=== PATIENT | female | born 1975 | race Caucasian/White ===

== ENCOUNTER 2018-02-09 08:45 | Outpatient (CLI) | payer BC, SELFPAY ==
[2018-02-09 09:46] LABS: Hemoglobin A1C 5.3 % (4.5-6.2)
[2018-02-09 10:04] LABS: Anion Gap 10.3 mmol/L (3-11); BUN 7 mg/dL (7-18); CO2 27.7 mmol/L (21.0-32.0); CREATININE 0.66 mg/dL (0.55-1.02); Calcium 8.7 mg/dL (8.5-10.1); Chloride 102 mmol/L (98-107); Glucose 85 mg/dL (70-100); Potassium 4.4 mmol/L (3.5-5.1); Sodium 140 mmol/L (136-145)
[2018-02-09 10:36] LABS: Vitamin D 25 Total 55.7 ng/ml (30-100)
== END 2018-02-09 09:05 ==
PROVIDERS: PCP Family Medicine; Visit Provider Family Medicine
DX: R73.9 Hyperglycemia, unspecified (principal); E55.9 Vitamin D deficiency, unspecified
CPT/HCPCS: 36415; 80048; 82306; 83036

== ENCOUNTER 2018-11-27 09:47 | Outpatient (CLI) | payer BC, SELFPAY ==
[2018-11-27 13:09] LABS: Abs Immature Grans 0.02 k/cumm (0.0-0.09); Absolute Basophil Count 0.03 k/cumm (0.0-0.2); Absolute Eosinophil Count 0.08 k/cumm (0.0-0.7); Absolute Lymphocyte Count 2.17 k/cumm (1.2-3.4); Basophils % 0.3; Eosinophils % 0.7; HCT 45.3 % (36.0-46.0); HGB 15.3 g/dL (12.0-15.5); Immature Grans % 0.2; Lymphocytes % 19.5; Mean Corp. HGB Concentration 33.8 g/dL (32.0-36.0); Mean Corpuscular Hemoglobin 30.9 pg (27.0-33.0); Mean Corpuscular Volume 91.5 fL (80-95); Mean Platelet Volume 11.5 fL (8.0-11.0); Monocytes % 8.1; Neutrophils % 71.2; Platelet Count 295 x1000/uL (130-400); RBC 4.95 m/cumm (4.00-5.20); RBC Distribution Width 13.6 % (11.7-14.6); White Blood Cell Count 11.15 k/cumm (4.4-10.8)
[2018-11-27 13:11] LABS: Absolute Neutrophil Count 7.94 k/cumm (1.2-6.7)
[2018-11-27 13:32] LABS: ALT 20 U/L (12-78); AST 14 U/L (15-37); Albumin 3.7 g/dL (3.4-5.0); Alkaline Phosphatase 125 U/L (46-116); Anion Gap 10.7 mmol/L (3-11); BUN 8 mg/dL (7-18); Bilirubin, Total 0.4 mg/dL (0.2-1.0); CO2 25.3 mmol/L (21.0-32.0); CREATININE 0.49 mg/dL (0.55-1.02); Calcium 9.1 mg/dL (8.5-10.1); Chloride 104 mmol/L (98-107); Glucose 72 mg/dL (70-100); Potassium 4.5 mmol/L (3.5-5.1); Sodium 140 mmol/L (136-145); TSH 0.82 uIU/mL (0.36-3.74); Total Protein 7.1 g/dL (6.4-8.2)
[2018-11-27 13:38] LABS: Vitamin D 25 Total 33.1 ng/ml (30-100)
[2018-11-27 13:51] LABS: ESR 11 mm/hr (0-20)
== END 2018-11-27 10:07 ==
PROVIDERS: PCP Family Medicine; Visit Provider Internal Medicine
DX: E55.9 Vitamin D deficiency, unspecified (principal); D72.829 Elevated white blood cell count, unspecified; R53.83 Other fatigue; M79.10 Myalgia, unspecified site
CPT/HCPCS: 36415; 80053; 82306; 85652; 84443; 85025

== ENCOUNTER 2019-06-12 13:30 | Emergency (ER) | payer BC, SELFPAY ==
[2019-06-12] MEDS: Normal Saline 1,000 ML 1000 ML IV (13:30)
[2019-06-12 13:38] VITALS: BP 129/68; PULSE 71; RESP 18; TEMP 36.6; O2SAT 99
[2019-06-12] MEDS: Ondansetron 4 MG/2 ML VIAL IVP (14:20)
--- NOTE | 2019-06-12 14:23 | W.ED.GENAD ---
Discharge Plan Discharge Details Chief Complaint: Abd Prob Primary Care Provider: Manuel Sanchez ED Provider: Gareth Ritter Home Meds and New Rx's Prescriptions: No Action fluconazole [Diflucan] 150 mg tablet 150 mg PO QWEEK Qty: 2 RF: 0 albuterol sulfate [ProAir HFA] 8.5 GM HFA aerosol inhaler 1 puff Inhalation Q4H PRN Qty: 3 RF: 12 Flovent HFA 12 GM HFA aerosol inhaler 2 puff Inhalation BID Qty: 3 RF: 12 omeprazole 40 MG capsule,delayed release(DR/EC) 40 mg PO DAILY Qty: 90 RF: 3 ibuprofen 200 MG tablet 2 tab PO PRN RF: 0 Medical Decision Making 43-year-old female with history of diverticulitis uncomplicated, gastritis, tubal ligation, cholecystectomy, presents with 2-day history of abdominal pain, nausea, vomiting and chronic diarrhea. She reports this feels most similarly to her diverticulitis. Patient appears well, nontoxic and has a nonsurgical ligia examination. Will give IV fluid, Zofran and routine laboratory out and reassess. Patient did not have any resolution of her symptoms with Zofran, 10 IV Reglan given. Patient's WBCs elevated over 20, will obtain abdomen and pelvis CT with contrast for further evaluation CT pending. Upon reevaluation patient is resting comfortably, no vomiting, has had a good reaction to the Reglan. 1618: I discussed the case with Dr. Ritter for signout. CT pending. Discussed signout with patient and family. Patient has had no vomiting with the IV Reglan and has no additional questions or concerns. Medical Records Medical records reviewed: Yes I reviewed the patient's medical records. HPI General Mode of arrival: ambulatory. Date/Time Provider Initiated Documentation: 06/12/19 13:36. Limitations to Documentation: no limitations. Information obtained by: patient and family. History of Present Illness 43 year old F presents to the emergency department with the chief complaint of Abdominal pain, HPI Narrative: 43-year-old female presents to the ER today reporting 2-3-day history of diffuse abdominal discomfort worse in the left lower quadrant associated with nausea and vomiting. Denies fever, constipation, dysuria, hematuria. Patient reports chronic diarrhea, there is no change in the consistency. Patient reports a longstanding history of abdominal pain, and reports that specifically this feels the most similar to her episodes of diverticulitis. She denies bad food exposure, sick contacts or recent travel. Denies any back pain. Related Data Home Medications Medication Instructions Recorded Confirmed Flovent HFA 2 puff INHALATION BID #3 canister 09/07/16 06/12/19 albuterol sulfate [ProAir HFA] 1 puff INHALATION Q4H PRN #3 09/07/16 06/12/19 inhaler omeprazole 40 mg PO DAILY #90 tab-cap 09/29/16 06/12/19 ibuprofen 2 tab PO PRN 04/04/17 06/12/19 fluconazole 150 mg tablet 150 mg PO QWEEK #2 tab 11/27/18 06/12/19 Previous Rx's Medication Instructions Recorded fluconazole 150 mg tablet 150 mg PO QWEEK #2 tab 11/27/18 Allergies Allergy/AdvReac Type Severity Reaction Status Date / Time hydrocodone AdvReac Severe Restlessnes Unverified 06/12/19 13:40 s nicotine AdvReac Severe Caused Unverified 06/12/19 13:40 pain down extremity bupropion [From Wellbutrin] AdvReac jitters Unverified 06/12/19 13:40 General Stated Complaint: Abd Prob ROSI: 3 Review of Systems Constitutional Constitutional: Denies fever(s) ENT Ears, Nose, Mouth, and Throat: Denies dizziness and Reports dry mouth Cardiovascular Cardiovascular: Denies chest pain and Denies dyspnea Respiratory Respiratory: Denies dyspnea Gastrointestinal Gastrointestinal: Reports abdominal pain, Denies constipation, Reports diarrhea, Reports nausea and Reports vomiting Genitourinary Genitourinary: Denies hematuria and Denies dysuria Musculoskeletal Musculoskeletal: Denies back pain Neurologic Neurologic: Denies dizziness [facility] Medical History Gastritis Surgical History Cholecystectomy 2008-Dr. Garcia Colonoscopy - IV Sedation 2009-Dr. Sloan Colonoscopy - MAC (09/01/16) EGD - IV Sedation 2009-Dr. Sloan EGD - MAC (09/01/16) Ligation of fallopian tube Family History Mother Essential hypertension Heart disease Hyperlipidemia Myocardial infarction AFTER SURGERY AND BLEEDING W/ BLOOD CLOT TO THE HEART. Father Alcohol abuse Personal history of malignant neoplasm THROAT/LIVER/LUNG Sister No problems noted. Brother Alcohol abuse Personal history of malignant neoplasm LIVER Grandfather No problems noted. Grandfather Personal history of malignant neoplasm Heart disease Grandmother Essential hypertension Stroke Grandmother Personal history of malignant neoplasm Social History Smoking/Tobacco Use Status: Current every day Tobacco Type: cigarettes Smoking packs per day: 0.5 Smoking cigarettes per day: 10.0 Alcohol Intake: never Drug use: Never Substance use type: does not use Household members: other Details: 4 Duration: 15-30 minutes/day Frequency: 3-4 times per week Do you feel safe in your relationship?: Yes Exam Const General: cooperative, healthy appearing and no acute distress Orientation: alert and awake HENMT Head: normal to inspection, normocephalic and atraumatic Mouth: mucous membranes dry Eyes Conjunctivae: conjunctivae normal Neck Neck: normal visual inspection, full ROM, no meningeal signs, trachea midline and supple Resp Effort & Inspection: normal respiratory effort Auscultation: clear to auscultation bilaterally Cardio Rate: regular rate Rhythm: regular rhythm GI Inspection: normal to inspection and non-distended Palpation: soft and tender (Diffuse mild discomfort worse in the left lower quadrant. No guarding) not at McBurney's point, Kahn's sign negative and with no rebound tenderness Auscultation: normal bowel sounds Back/Spine/Pelvis Thoracic/Lumbar Spine: No lumbar spinal tenderness Skin General skin exam: no rashes or lesions noted Neuro General: alert and awake Cognition: normal cognition Speech: speech normal Motor: muscle tone normal throughout Extrem General: normal to inspection and full ROM Psych Appearance: grossly normal Course Vital Signs Vital signs: Vital Signs Temperature 36.6 C 06/12/19 13:38 Pulse 71 06/12/19 13:38 Respiratory Rate 18 06/12/19 13:38 Blood Pressure 129/68 06/12/19 13:38 Pulse Oximetry 99 06/12/19 13:38 Temperature 36.6 C 06/12/19 13:38 Temperature Source Skin 06/12/19 13:38 Pulse 71 06/12/19 13:38 Respiratory Rate 18 06/12/19 13:38 Blood Pressure 129/68 06/12/19 13:38 Pulse Oximetry 99 06/12/19 13:38 Oxygen Delivery Method Room Air 06/12/19 13:38 Oxygen Flow Rate 0 06/12/19 13:38 Pain Level 7 06/12/19 13:38 Sign Out Sign Out Data: Sign Out Comment: Pending CT, reevaluation and final disposition. Patient has responded nicely to Reglan. She is stable. Abdominal examination is nonsurgical at the moment Last updated by John Gunter PA at 06/12/19 16:15
[2019-06-12 14:35] LABS: Abs Immature Grans 0.05 k/cumm (0.0-0.09); Absolute Lymphocyte Count 0.58 k/cumm (1.2-3.4); Absolute Monocyte Count 0.35 k/cumm (0.11-0.7); Absolute Neutrophil Count 19.65 k/cumm (1.2-6.7); HGB 15.3 g/dL (12.0-15.5); Immature Grans % 0.2 %; Lymphocytes % 2.8; Mean Corpuscular Hemoglobin 30.5 pg (27.0-33.0); Mean Corpuscular Volume 89.6 fL (80-95); Mean Platelet Volume 11.2 fL (8.0-11.0); Monocytes % 1.7; Neutrophils % 95.3; Platelet Count 362 x1000/uL (130-400); RBC 5.02 m/cumm (4.00-5.20); White Blood Cell Count 20.62 k/cumm (4.4-10.8)
[2019-06-12 14:56] LABS: ALT 14 U/L (14-59); AST 12 U/L (15-37); Albumin 3.7 g/dL (3.4-5.0); Alkaline Phosphatase 132 U/L (46-116); Anion Gap 15.5 mmol/L (3-11); BUN 9 mg/dL (7-18); Bilirubin, Total 0.7 mg/dL (0.2-1.0); CO2 21.5 mmol/L (21.0-32.0); CREATININE 0.73 mg/dL (0.55-1.02); Calcium 8.8 mg/dL (8.5-10.1); Chloride 100 mmol/L (98-107); Glucose 176 mg/dL (74-106); Lipase 53 U/L (73-393); Potassium 3.9 mmol/L (3.5-5.1); Sodium 137 mmol/L (136-145); Total Protein 7.8 g/dL (6.4-8.2)
[2019-06-12 15:01] LABS: Bilirubin Negative (Negative); Blood Trace-intact (Negative); Clarity Clear (Clear); Glucose 250 mg/dL (Negative); Ketones >=160 mg/dL (Negative); Leukocyte Esterase Negative (Negative); Nitrite Negative (Negative); Specific Gravity >= 1.030 (1.005-1.025); Urobilinogen 0.2 EU/dL (Up TO 0.2)
[2019-06-12] MEDS: Metoclopramide 10 MG/2 ML VIAL IVP (15:08)
[2019-06-12 15:15] LABS: Epithelial Cells Few HPF (Negative); RBC 0-2 HPF (0-2); WBC 0-2 HPF (0-5)
[2019-06-12 15:16] LABS: Bacteria Few HPF (Negative); C & S Indicated? No; Casts Negative LPF (Negative); Crystals Negative HPF (Negative); Mucus Trace (Negative)
--- NOTE | 2019-06-12 16:47 | DI.CT_ITS ---
EXAM: CT ABDOMEN PELVIS W CLINICAL HISTORY: 20 wbc, llq pain TECHNIQUE: Imaging Protocol: Axial computed tomography images with coronal and sagittal reformatted images were created and reviewed CONTRAST MATERIAL: Intravenous: Omnipaque 350 Contrast volume:100 mL Oral: No COMPARISON: ABD PELVIS WITH CONTRAST from 09/04/2016 FINDINGS: ABDOMEN: Lung Bases: Normal where visualized. Liver: Normal density. No measurable mass. Portal, Superior Mesenteric, and Splenic Veins: Unremarkable. Gallbladder and Biliary Tract: Status post cholecystectomy. No biliary ductal dilatation. Pancreas: Normal density, no abnormal calcifications or inflammatory process. Spleen: Normal. Adrenals: No masses seen. Kidneys: Normal size, contour and axis. No radiodense stones or obstructive uropathy. No masses seen. Abdominal Aorta: Abdominal portion non-dilated. Atherosclerosis. Bowel: There is colonic diverticulosis. There is focal bowel wall thickening seen in the descending colon with surrounding inflammatory change. The finding is consistent with acute diverticulitis. No abscess or free air. No evidence of acute appendicitis. Small hiatal hernia. Peritoneal Cavity: Small amount of free fluid in the pelvis which is likely physiologic or reactive. Lymph Nodes: Within normal limits. Bones: Unremarkable. Soft Tissues: Unremarkable. PELVIS: Bladder: Symmetric distention, no gross wall thickening. Reproductive Organs: Unremarkable as visualized. Lymph Nodes: Within normal limits. Bones: Within normal limits. IMPRESSION: Acute diverticulitis involving the descending colon. No abscess or free air. DATA REPOSITORY: All CT scans at this facility are submitted to the National Radiology Data Registry (NRDR) Dose Index Registry (DIR) with the [employer] (ACR). RADIATION OPTIMIZATION: All CT scans at this facility use at least one of these dose optimization te chniques: automated exposure control; mA and/or kV adjustment per patient size (includes targeted exa ms where dose is matched to clinical indication); or iterative reconstruction.
--- NOTE | 2019-06-12 17:13 | DI.VRAD_ITS ---
PROCEDURE INFORMATION: Exam: CT Abdomen And Pelvis With Contrast Exam date and time: 06/12/2019 4:53 PM Age: 43 years old Clinical indication: Other: 20 wbc, llq pain; Prior surgery; Surgery date: 6+ months; Surgery type: Bladder , gb TECHNIQUE: Imaging protocol: Computed tomography of the abdomen and pelvis with intravenous contrast. Radiation optimization: All CT scans at this facility use at least one of these dose optimization techniques: automated exposure control; mA and/or kV adjustment per patient size (includes targeted exams where dose is matched to clinical indication); or iterative reconstruction. Contrast material: OMNIPAQUE 350; Contrast volume: 100 ml; Contrast route: IV; COMPARISON: CT ABD PELVIS WITH CONTRAST 09/04/2016 2:51 PM FINDINGS: Lungs: The visualized portions of the lung bases demonstrate no acute disease. Mediastinum: A small hiatal hernia is present. Liver: Normal. No mass. Gallbladder and bile ducts: Patient status post cholecystectomy. No biliary ductal dilation. Pancreas: Normal. No ductal dilation. Spleen: Normal. No splenomegaly. Adrenals: Normal. No mass. Kidneys and ureters: Normal. No hydronephrosis. Stomach and bowel: Focal segment of descending colon demonstrates wall thickening, pericolonic stranding, and an inflamed diverticulum. This is compatible with acute diverticulitis. Diffuse colonic diverticulosis is present. No other segmental bowel wall thickening is appreciated. There is no bowel obstruction. Appendix: No evidence of appendicitis. Intraperitoneal space: Trace free fluid in the pelvis may be physiologic or reactive. No pneumoperitoneum. No fluid collections. Vasculature: The vasculature demonstrates diffuse mild atherosclerotic calcification. Lymph nodes: Unremarkable. No enlarged lymph nodes. Bladder: Unremarkable as visualized. Reproductive: Unremarkable as visualized. Bones/joints: No acute abnormality or aggressive osseous lesion. Soft tissues: Unremarkable. IMPRESSION: Acute uncomplicated diverticulitis involving a focal segment of descending colon. Dictated and Authenticated by: Ant Rojas MD. Ordering:ÁNGELA Lopez MD
--- NOTE | 2019-06-12 17:14 | ED.GENADUL_ITS ---
Discharge Plan Disposition Patient Disposition: HOME Condition: Improving Discharge Details Chief Complaint: Abd Prob Clinical Impression: Diverticulitis Primary Care Provider: Manuel Sanchez ED Provider: Gareth Ritter Home Meds and New Rx's Prescriptions: New ciprofloxacin HCl [Cipro] 500 mg tablet 500 mg PO BID 10 Days Qty: 20 RF: 0 metronidazole [Flagyl] 500 mg tablet 500 mg PO Q8H 10 Days Qty: 30 RF: 0 metoclopramide HCl [Reglan] 10 mg tablet 10 mg PO Q6H PRN (Reason: nausea and vomiting) Qty: 5 RF: 0 Continued fluconazole [Diflucan] 150 mg tablet 150 mg PO QWEEK Qty: 2 RF: 0 albuterol sulfate [ProAir HFA] 8.5 GM HFA aerosol inhaler 1 puff Inhalation Q4H PRN Qty: 3 RF: 12 Flovent HFA 12 GM HFA aerosol inhaler 2 puff Inhalation BID Qty: 3 RF: 12 omeprazole 40 MG capsule,delayed release(DR/EC) 40 mg PO DAILY Qty: 90 RF: 3 ibuprofen 200 MG tablet 2 tab PO PRN RF: 0 Discharge Instructions Instructions: Diverticulitis (ED), Diverticulitis Diet (ED) Additional Instructions: Followup with regular doctor for recheck in 10-14 days time. Please take an over the counter probiotic or live culture yogurt while on the antibiotics. Return for fever, increasing pain or any other concerns. May use Tylenol as needed for pain. Medical Decision Making Patient seen initially by Mr Gunter, signed out to pending review of CT abdomen. Please see his note regarding details of patient's initial presentation, exam, plan of care. CT images: Acute uncomplicated diverticulitis involving a focal segment of descending colon. The patient is improving and tolerating liquids/ice chips. She requested GI cocktail as she stated good results in the past for similar symptoms. No antibiotic intolerance in the past. Will begin Cipro/Flagyl. Antiemetics offered for home. Discussed home care as well as followup. HPI General Mode of arrival: ambulatory . Date/Time Provider Initiated Documentation: 06/12/19 13:36 . Limitations to Documentation: no limitations . Information obtained by: patient and family . Related Data Home Medications Medication Instructions Recorded Confirmed Flovent HFA 2 puff INHALATION BID #3 canister 09/07/16 06/12/19 albuterol sulfate [ProAir HFA] 1 puff INHALATION Q4H PRN #3 09/07/16 06/12/19 inhaler omeprazole 40 mg PO DAILY #90 tab-cap 09/29/16 06/12/19 ibuprofen 2 tab PO PRN 04/04/17 06/12/19 fluconazole 150 mg tablet 150 mg PO QWEEK #2 tab 11/27/18 06/12/19 ciprofloxacin HCl [Cipro] 500 mg PO BID 10 Days #20 tab 06/12/19 metoclopramide HCl [Reglan] 10 mg PO Q6H PRN #5 tab 06/12/19 metronidazole [Flagyl] 500 mg PO Q8H 10 Days #30 tab 06/12/19 Previous Rx's Medication Instructions Recorded fluconazole 150 mg tablet 150 mg PO QWEEK #2 tab 11/27/18 ciprofloxacin HCl [Cipro] 500 mg PO BID 10 Days #20 tab 06/12/19 metoclopramide HCl [Reglan] 10 mg PO Q6H PRN #5 tab 06/12/19 metronidazole [Flagyl] 500 mg PO Q8H 10 Days #30 tab 06/12/19 Allergies Allergy/AdvReac Type Severity Reaction Status Date / Time hydrocodone AdvReac Severe Restlessnes Unverified 06/12/19 13:40 s nicotine AdvReac Severe Caused Unverified 06/12/19 13:40 pain down extremity bupropion [From Wellbutrin] AdvReac jitters Unverified 06/12/19 13:40 General Stated Complaint: Abd Prob ROSI: 3 PFSH Medical History Gastritis Surgical History Cholecystectomy 2008-Dr. Garcia Colonoscopy - IV Sedation 2009-Dr. Sloan Colonoscopy - MAC (09/01/16) EGD - IV Sedation 2009-Dr. Sloan EGD - MAC (09/01/16) Ligation of fallopian tube Family History Mother Essential hypertension Heart disease Hyperlipidemia Myocardial infarction AFTER SURGERY AND BLEEDING W/ BLOOD CLOT TO THE HEART. Father Alcohol abuse Personal history of malignant neoplasm THROAT/LIVER/LUNG Sister No problems noted. Brother Alcohol abuse Personal history of malignant neoplasm LIVER Grandfather No problems noted. Grandfather Personal history of malignant neoplasm Heart disease Grandmother Essential hypertension Stroke Grandmother Personal history of malignant neoplasm Social History Smoking/Tobacco Use Status: Current every day Tobacco Type: cigarettes Smoking packs per day: 0.5 Smoking cigarettes per day: 10.0 Alcohol Intake: never Drug use: Never Substance use type: does not use Household members: other Details: 4 Duration: 15-30 minutes/day Frequency: 3-4 times per week Do you feel safe in your relationship?: Yes Course Vital Signs Vital signs: Vital Signs Temperature 36.6 C 06/12/19 13:38 Pulse 71 06/12/19 13:38 Respiratory Rate 18 06/12/19 13:38 Blood Pressure 129/68 06/12/19 13:38 Pulse Oximetry 99 06/12/19 13:38 Temperature 36.6 C 06/12/19 13:38 Temperature Source Skin 06/12/19 13:38 Pulse 71 06/12/19 13:38 Respiratory Rate 18 06/12/19 13:38 Respiratory Effort Non-Labored 06/12/19 14:47 Blood Pressure 129/68 06/12/19 13:38 Pulse Oximetry 99 06/12/19 13:38 Oxygen Delivery Method Room Air 06/12/19 13:38 Oxygen Flow Rate 0 06/12/19 13:38 Pain Level 7 06/12/19 13:38 Lab/Test Results Lab/Test Results: Laboratory Tests Range/Units 06/12/19 06/12/19 06/12/19 13:50 13:50 14:46 WBC (4.4-10.8) k/cumm 20.62 H RBC (4.00-5.20) m/cumm 5.02 Hgb (12.0-15.5) g/dL 15.3 Hct (36.0-46.0) % 45.0 MCV (80-95) fL 89.6 MCH (27.0-33.0) pg 30.5 MCHC (32.0-36.0) g/dL 34.0 RDW (11.7-14.6) % 13.0 Plt Count (130-400) x1000/uL 362 MPV (8.0-11.0) fL 11.2 H Immature Gran % % 0.2 Neutrophils % 95.3 Lymphocytes % 2.8 Monocytes % 1.7 Eosinophils % 0.0 Basophils % 0.0 Absolute Neutrophils (1.2-6.7) k/cumm 19.65 H Absolute Lymphocytes (1.2-3.4) k/cumm 0.58 L Absolute Monocytes (0.11-0.7) k/cumm 0.35 Absolute Eosinophils (0.0-0.7) k/cumm 0.00 Absolute Basophils (0.0-0.2) k/cumm 0.00 Sodium (136-145) mmol/L 137 Potassium (3.5-5.1) mmol/L 3.9 Chloride (98-107) mmol/L 100 Carbon Dioxide (21.0-32.0) mmol/L 21.5 Anion Gap (3-11) mmol/L 15.5 H BUN (7-18) mg/dL 9 Creatinine (0.55-1.02) mg/dL 0.73 Estimated GFR/1.73 m2 (mL/min/1.73m2) >= 60.00 Glucose (74-106) mg/dL 176 H Calcium (8.5-10.1) mg/dL 8.8 Total Bilirubin (0.2-1.0) mg/dL 0.7 AST (15-37) U/L 12 L ALT (14-59) U/L 14 Alkaline Phosphatase (46-116) U/L 132 H Total Protein (6.4-8.2) g/dL 7.8 Albumin (3.4-5.0) g/dL 3.7 Lipase (73-393) U/L 53 Urine Color (Yellow) Yellow Urine Clarity (Clear) Clear Urine pH (5-8) 6.0 Ur Specific [place] (1.005-1.025) >= 1.030 H Urine Protein (Negative) mg/dL 30 H Urine Ketones (Negative) mg/dL >=160 H Urine Blood (Negative) Trace-intact H Urine Nitrite (Negative) Negative Urine Bilirubin (Negative) Negative Urine Urobilinogen (Up TO 0.2) EU/dL 0.2 Ur Leukocyte Esterase (Negative) Negative Urine RBC (0-2) HPF 0-2 Urine WBC (0-5) HPF 0-2 Ur Epithelial Cells (Negative) HPF Few Urine Crystals (Negative) HPF Negative Urine Bacteria (Negative) HPF Few Urine Casts (Negative) LPF Negative Urine Mucus (Negative) Trace Ur Culture Indicated? No Urine Glucose (Negative) mg/dL 250 H Sign Out Sign Out Data: Sign Out Comment: Pending CT, reevaluation and final disposition. Patient has responded nicely to Reglan. She is stable. Abdominal examination is nonsurgical at the moment Last updated by John Gunter PA at 06/12/19 16:15
[2019-06-12 17:36] VITALS: BP 138/88; PULSE 70; TEMP 37; O2SAT 97
[2019-06-12] MEDS: Ondansetron O.D.T. 4 MG TABEF PO (17:40)
[2019-06-12 18:00] VITALS: BP 138/88; PULSE 70; RESP 18; TEMP 37; O2SAT 97
== END 2019-06-12 17:55 | disposition home or self-care (01) ==
PROVIDERS: Physician Assistant; Emergency Provider Emergency Medicine; PCP Family Medicine
DX: R11.2 Nausea with vomiting, unspecified (principal); K57.32 Diverticulitis of large intestine without perforation or abscess without bleeding
CPT/HCPCS: 36415; 80053; 83690; 96361; 96374; 96375; 99285; 74177; 81003; 81015; 85025; 99284; J2405; J2765

== ENCOUNTER 2019-06-14 22:15 | Inpatient (IN) | payer BC, SELFPAY ==
[2019-06-14 22:19] VITALS: BP 145/85; PULSE 57; RESP 18; TEMP 36.5; O2SAT 99
--- NOTE | 2019-06-14 22:33 | ED.GENADUL_ITS ---
Discharge Plan Disposition Patient Disposition: [facility] INPATIENT Condition: Stable Discharge Details Chief Complaint: Abd Prob Clinical Impression: Diverticulitis Primary Care Provider: Manuel Sanchez ED Provider: Jean Lopez Home Meds and New Rx's Prescriptions: No Action albuterol sulfate [ProAir HFA] 8.5 GM HFA aerosol inhaler 1 puff Inhalation Q4H PRN Qty: 3 RF: 12 Flovent HFA 12 GM HFA aerosol inhaler 2 puff Inhalation BID Qty: 3 RF: 12 omeprazole 40 MG capsule,delayed release(DR/EC) 40 mg PO DAILY Qty: 90 RF: 3 ibuprofen 200 MG tablet 2 tab PO PRN RF: 0 metoclopramide HCl [Reglan] 10 mg tablet 10 mg PO Q6H PRN (Reason: nausea and vomiting) Qty: 12 RF: 0 ciprofloxacin HCl [Cipro] 500 mg tablet 500 mg PO BID 10 Days Qty: 20 RF: 0 metronidazole [Flagyl] 500 mg tablet 500 mg PO Q8H 10 Days Qty: 30 RF: 0 Medical Decision Making 43 yo female who was diagnosed on CT with uncomplciated diverticulitis on y comes in with increasing pain in llq since then, chills and n/v along with hematuria. Denies any chest pain/pressure, recent travel. On exam does have guarding in left lower quadrants. Will obtain lab work and another CT to eval for possible ruptured diverticula vs abscess labs unremarkable, does have hematuria with no significant indication of infection was not grossly bloody on visual inspection. Will likely need urology consult. Does have likely microperforation of diverticula. Spoke with Dr. French who accepts for admission, abx ordered. Differential Diagnosis Differential Diagnosis: diverticulitis, abscess, kdiney stone Imaging Data Radiologic Study: Attestation: I personally reviewed and interpreted this imaging study as follows: Imaging: CT Scan Radiologist's impression: IMPRESSION: Acute descending colon diverticulitis with concern for contained micro perforation. Lab Data Lab results reviewed: Yes I reviewed the patient's lab results. HPI General Mode of arrival: ambulatory . Date/Time Provider Initiated Documentation: 06/14/19 22:18 . Limitations to Documentation: no limitations . Information obtained by: patient . History of Present Illness 43 year old F presents to the emergency department with the chief complaint of abdominal pain, described as moderate and severe, Patient started experiencing this day(s) (5) and it has been constant. No relieving factors improve symptom(s), No exacerbating factors reported . Patient notes nausea/vomiting. Patient did receive the following treatments prior to arrival, none Related Data Home Medications Medication Instructions Recorded Confirmed Flovent HFA 2 puff INHALATION BID #3 canister 09/07/16 06/14/19 albuterol sulfate [ProAir HFA] 1 puff INHALATION Q4H PRN #3 09/07/16 06/14/19 inhaler omeprazole 40 mg PO DAILY #90 tab-cap 09/29/16 06/14/19 ibuprofen 2 tab PO PRN 04/04/17 06/14/19 ciprofloxacin HCl [Cipro] 500 mg PO BID 10 Days #20 tab 06/12/19 06/14/19 metronidazole [Flagyl] 500 mg PO Q8H 10 Days #30 tab 06/12/19 06/14/19 metoclopramide HCl 10 mg tablet 10 mg PO Q6H PRN #12 tab 06/13/19 06/14/19 Previous Rx's Medication Instructions Recorded ciprofloxacin HCl [Cipro] 500 mg PO BID 10 Days #20 tab 06/12/19 metronidazole [Flagyl] 500 mg PO Q8H 10 Days #30 tab 06/12/19 metoclopramide HCl 10 mg tablet 10 mg PO Q6H PRN #12 tab 06/13/19 Allergies Allergy/AdvReac Type Severity Reaction Status Date / Time hydrocodone AdvReac Severe Restlessnes Unverified 06/14/19 22:43 s nicotine AdvReac Severe Caused Unverified 06/14/19 22:43 pain down extremity bupropion [From Wellbutrin] AdvReac jitters Unverified 06/14/19 22:43 General Stated Complaint: Abd Prob ROSI: 3 Review of Systems All systems reviewed & are unremarkable except as noted in HPI and below Constitutional Constitutional: Denies fever(s) and Denies weakness Cardiovascular Cardiovascular: Denies chest pain and Denies dyspnea Respiratory Respiratory: Denies cough and Denies dyspnea Musculoskeletal Musculoskeletal: Denies joint swelling Neurologic Neurologic: Denies weakness Endocrine Endocrine: Denies heat intolerance [facility] Medical History (Updated 06/14/19 @ 23:38 by Jean Lopez MD) Diverticulitis (Chronic) Gastritis Social History Smoking/Tobacco Use Status: Current every day Tobacco Type: cigarettes Smoking packs per day: 0.5 Smoking cigarettes per day: 10.0 Alcohol Intake: never Drug use: Never Substance use type: does not use Household members: other Details: 4 Duration: 15-30 minutes/day Frequency: 3-4 times per week Do you feel safe in your relationship?: Yes Exam Const General: no acute distress Orientation: alert HENMT Head: normal to inspection Ears: external ears normal General nose exam: external nose normal Mouth: moist mucous membranes Eyes General: appearance normal, both eyes and all related structures Neck Neck: normal visual inspection Resp Effort & Inspection: normal respiratory effort and able to speak in complete sentences Cardio Rate: regular rate GI Palpation: soft Skin General skin exam: no rashes or lesions noted Neuro General: alert and oriented x3 Extrem General: normal to inspection Psych Mental Status: mental status grossly normal Course Vital Signs Vital signs: Vital Signs Temperature 36.5 C 06/14/19 22:19 Pulse 57 L 06/14/19 22:19 Respiratory Rate 18 06/14/19 22:19 Blood Pressure 145/85 H 06/14/19 22:19 Pulse Oximetry 99 06/14/19 22:19 Temperature 36.5 C 06/14/19 22:19 Temperature Source Skin 06/14/19 22:19 Pulse 57 L 06/14/19 22:19 Respiratory Rate 18 06/14/19 22:19 Blood Pressure 145/85 H 06/14/19 22:19 Pulse Oximetry 99 06/14/19 22:19 Oxygen Delivery Method Room Air 06/14/19 22:19 Oxygen Flow Rate 0 06/14/19 22:19 Pain Level 5 06/14/19 22:19
[2019-06-14 22:39] LABS: Lactate 1.4 mmol/L (0.6-1.4)
[2019-06-14 22:40] LABS: Abs Immature Grans 0.04 k/cumm (0.0-0.09); Absolute Basophil Count 0.01 k/cumm (0.0-0.2); Absolute Lymphocyte Count 1.24 k/cumm (1.2-3.4); Absolute Neutrophil Count 10.14 k/cumm (1.2-6.7); Basophils % 0.1; HCT 43.3 % (36.0-46.0); Immature Grans % 0.3 %; Lymphocytes % 9.8; Mean Corp. HGB Concentration 34.6 g/dL (32.0-36.0); Mean Corpuscular Hemoglobin 30.7 pg (27.0-33.0); Mean Corpuscular Volume 88.5 fL (80-95); Mean Platelet Volume 10.5 fL (8.0-11.0); Monocytes % 9.4; Neutrophils % 80.4; Platelet Count 385 x1000/uL (130-400); RBC 4.89 m/cumm (4.00-5.20); RBC Distribution Width 12.7 % (11.7-14.6); White Blood Cell Count 12.61 k/cumm (4.4-10.8)
[2019-06-14 22:41] LABS: Absolute Monocyte Count 1.19 k/cumm (0.11-0.7)
[2019-06-14] MEDS: Normal Saline - Diluent 50 ML VIAL IV (22:44)
--- NOTE | 2019-06-14 22:44 | DI.CT_ITS ---
EXAM: CT ABDOMEN PELVIS W CLINICAL HISTORY: left lower abdominal pain COMPARISON: CT ABDOMEN PELVIS W from 06/12/2019 FINDINGS: CT examination of the abdomen and pelvis was performed with a bolus infusion of 76 cc of Omnipaque 35 0. Images obtained through the lung bases are unremarkable. Liver, spleen, and pancreas appear norm al. Incidental tiny apparent splenic cysts noted. Gallbladder has been surgically removed. No biliary dilatation. Adrenals and kidneys appear normal. No urinary tract calcification or obstruction. Abdominal wall appears intact with no significant hernia. No abdominal or pelvic adenopathy. Aorta is of normal diameter and vascular structures appear intact. Appendix is normal. There is no evidence of bowel obstruction. There is a focal area of wall thicke jennifer of the descending colon with associated thickening of diverticulum wall and marked pericolonic l ocalized fat edema. There may be micro perforation at this site as well. No free air identified gen eralized peritoneal cavity. Optical Instrument Specialist structures unremarkable with a presumed small uterine leiomyoma. No free fluid identified in the pelvis. IMPRESSION: Findings consistent with diverticulitis of the descending colon, probable micro perforation without a bscess formation or significant free air in the peritoneal cavity.
[2019-06-14] MEDS: Omnipaque 350 MG/ML 100 ML BTL IJ (22:45)
[2019-06-14 22:46] LABS: Bilirubin Small (Negative); Blood Large (Negative); Clarity Clear (Clear); Glucose Negative (Negative); Ketones >=160 mg/dL (Negative); Leukocyte Esterase Negative (Negative); Nitrite Negative (Negative); Specific Gravity >= 1.030 (1.005-1.025); Urobilinogen 0.2 EU/dL (Up TO 0.2)
[2019-06-14] MEDS: Normal Saline Flush 10 ML SYR IVP (22:46)
[2019-06-14 22:49] LABS: Lipase 130 U/L (73-393); Magnesium 2.2 mg/dL (1.8-2.4)
[2019-06-14 22:53] LABS: Creatine Kinase 86 U/L (26-192)
[2019-06-14 22:53] LABS: C & S Indicated? C&S Done As Ordered
[2019-06-14 22:54] LABS: ALT 33 U/L (14-59); AST 39 U/L (15-37); Albumin 4.1 g/dL (3.4-5.0); Alkaline Phosphatase 120 U/L (46-116); Anion Gap 14.9 mmol/L (3-11); BUN 13 mg/dL (7-18); Bilirubin, Direct 0.15 mg/dL (0.00-0.20); CO2 24.1 mmol/L (21.0-32.0); CREATININE 0.61 mg/dL (0.55-1.02); Chloride 96 mmol/L (98-107); Glucose 79 mg/dL (74-106); Potassium 3.8 mmol/L (3.5-5.1); Sodium 135 mmol/L (136-145); Total Protein 8.2 g/dL (6.4-8.2)
[2019-06-14 22:55] LABS: Bacteria Negative HPF (Negative); Casts Negative LPF (Negative); Crystals Negative HPF (Negative); Epithelial Cells Few HPF (Negative); Mucus Negative (Negative); RBC >50 HPF (0-2)
[2019-06-14] MEDS: HYDROmorphone 2 MG/ML VIAL 0.5 MG IVP (22:57)
[2019-06-14] MEDS: Normal Saline 1,000 ML 1000 ML IV (22:59)
--- NOTE | 2019-06-14 23:16 | DI.VRAD_ITS ---
Addendum created by Ant Rojas MD on 06/14/2019 11:27:55 PM EST THIS REPORT CONTAINS FINDINGS THAT MAY BE CRITICAL TO PATIENT CARE. The findings were verbally communicated via telephone conference with Jean Lopez at 11:27 PM EST on 06/14/2019. The findings were acknowledged and understood. Initial report created on 06/14/2019 11:16:22 PM EST PROCEDURE INFORMATION: Exam: CT Abdomen And Pelvis With Contrast Exam date and time: 06/14/2019 10:47 PM Age: 43 years old Clinical indication: Abdominal pain; Localized; Left lower quadrant (llq) TECHNIQUE: Imaging protocol: Computed tomography of the abdomen and pelvis with intravenous contrast. Radiation optimization: All CT scans at this facility use at least one of these dose optimization techniques: automated exposure control; mA and/or kV adjustment per patient size (includes targeted exams where dose is matched to clinical indication); or iterative reconstruction. Contrast material: OMNIPAQUE 350; Contrast volume: 75 ml; Contrast route: IV; COMPARISON: CT ABDOMEN PELVIS W 06/12/2019 4:47 PM FINDINGS: Lungs: The visualized portions of the lung bases demonstrate no acute disease. Mediastinum: A small hiatal hernia is present. Liver: Normal. No mass. Gallbladder and bile ducts: Patient status post cholecystectomy. No biliary ductal dilation. Pancreas: Normal. No ductal dilation. Spleen: Normal. No splenomegaly. Adrenals: Normal. No mass. Kidneys and ureters: Normal. No hydronephrosis. Stomach and bowel: There is a focally inflamed diverticulum in the descending colon with associated surrounding inflammatory changes. There is a small bubble of air on image 452 series 5 which appears to be extraluminal in location. There is mild wall thickening at this segment of descending colon. No other segmental bowel wall thickening is appreciated. There is diffuse colonic diverticulosis present. There is no bowel obstruction. Appendix: No evidence of appendicitis. Intraperitoneal space: Unremarkable. No free air. No significant fluid collection. Vasculature: The vasculature demonstrates diffuse moderate atherosclerotic calcification. Lymph nodes: Unremarkable. No enlarged lymph nodes. Bladder: Unremarkable as visualized. Reproductive: 1 cm hyperenhancing or hyperdense lesion in the anterior uterine body on image 47 series 7 most likely represents a myoma. Nabothian cysts are noted at the cervix. Reproductive organs appear otherwise unremarkable. Bones/joints: No acute abnormality or aggressive osseous lesion. Soft tissues: Unremarkable. IMPRESSION: Acute descending colon diverticulitis with concern for contained micro perforation. Dictated and Authenticated by: Ant Rojas MD. Ordering:ROLA Pena MD
[2019-06-14] MEDS: PIPERACILLIN/TAZO 4.5 GM in Normal Saline 100 ML IVPB (23:43)
[2019-06-15] VITALS (8 sets, daily range): BP systolic 116–145; BP diastolic 70–93; PULSE 50–76; RESP 16–20; TEMP 36.7–37.2; O2SAT 95–99
[2019-06-15] MEDS: Normal Saline Flush 10 ML SYR IVP ×4 (01:17→14:08)
[2019-06-15] MEDS: fentaNYL 100 MCG/2 ML VIAL 50 MCG IVP ×2 (01:17→08:24)
[2019-06-15] MEDS: Normal Saline 1,000 ML 150 ML IV ×2 (01:17→08:17)
[2019-06-15 07:33] LABS: Abs Immature Grans 0.01 k/cumm (0.0-0.09); Absolute Basophil Count 0.01 k/cumm (0.0-0.2); Absolute Eosinophil Count 0.03 k/cumm (0.0-0.7); Absolute Monocyte Count 1.06 k/cumm (0.11-0.7); Absolute Neutrophil Count 5.96 k/cumm (1.2-6.7); Basophils % 0.1; Eosinophils % 0.3; HCT 35.9 % (36.0-46.0); HGB 12.3 g/dL (12.0-15.5); Immature Grans % 0.1 %; Lymphocytes % 24.5; Mean Corp. HGB Concentration 34.3 g/dL (32.0-36.0); Mean Corpuscular Hemoglobin 30.8 pg (27.0-33.0); Mean Corpuscular Volume 89.8 fL (80-95); Mean Platelet Volume 10.9 fL (8.0-11.0); Monocytes % 11.3; Neutrophils % 63.7; Platelet Count 295 x1000/uL (130-400); RBC Distribution Width 12.5 % (11.7-14.6); White Blood Cell Count 9.37 k/cumm (4.4-10.8)
[2019-06-15] MEDS: PIPERACILLIN/TAZO 3.375 GM in Normal Saline 50 ML IVPB ×3 (09:15→19:35)
--- NOTE | 2019-06-15 09:42 | PHARADMIT ---
Admission Pharmacy Clinical Review DIVERTICULITIS w MICROPERFORATION Code Status Full Code Current Weight Wgt-53 kg Renally Cleared and Narrow Therapeutic Index Meds CrCl~ 70.9 mL/min Meds-OK QTc Value / Action Taken NONE CURRENT BP Control, Fever BP-1226/70 Tmax-36.9C Electrolytes reviewed Na-135 K+3.8 Mag-2.2 DVT Prophylaxis none Opiate Usage / Scheduled Bowel Regimen Ordered Yes No Plt/SCr for Heparin / Enoxaparin Plts-295 SCr-0.61 INR for Warfarin na H/H stable, WBC/Bands H&H-12.3/35.9 WBC-9.37 Antibiotic appropriateness Zosyn Cultures and Sensitivities Urine-pending Surgical ABX d/c within 24 hr na DM control / Insulin Dosing BG-79 Heart Failure (Check EF%) (ARI's, B-Block, Diuretics) none IV to PO Switch No Home Meds Reviewed Yes Home Meds Not Ordered Wellbutrin,Vit-D, Cipro, Flovent, Iburpofen, Flagyl, Omeprazole, Reglan, Zantac, Proventil, Comments LFTs Elevated
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
--- NOTE | 2019-06-15 11:10 | INITIAL_ITS ---
- If Service Date Differs Date of service: 06/15/19 Time of Service: 11:10 Care Management Initial Assess REASON FOR HOSPITALIZATION:: Diverticulitis PAST MEDICAL HISTORY/PAST SURGICAL HISTORY:: Medical History . Diverticulitis (Chronic). Gastritis. Surgical History . Cholecystectomy. 2008- Dr. Garcia. Colonoscopy - IV Sedation. 2009-Dr. Sloan. Colonoscopy - MAC (09/01/16). EGD - IV Sedation. 2009-Dr. Sloan. EGD - MAC (09/01/16). Ligation of fallopian tube PREVIOUS FUNCTIONAL STATUS/SOCIAL/FAMILY SUPPORTS:: Cherry lives with her Keron and one child in a home in [place], [place] They have a second adult child who lives outside their home. She is currently not working but stated she worked at [employer] in [facility] for 11 years. Cherry states that she has a lot of medical issues and is unable to work. She has chronic nausea and vomiting as well as some ill-defined neurological problem for which she is seeing a britany rologist at [facility] [place]. Cherry does not drive; she states that her will not let her because of the neurological problem. CURRENT FUNCTIONAL STATUS:: Cherry was sitting up in bed when CM met with her. She was agreeable to conversation but evasive with her responses to questions. Cherry did share her work history and the fact that she was sick more than she was well so was forced to resign from her job. ADVANCE DIRECTIVES:: None on file Has patient been provided with information about the portal?: Yes Did the patient sign up for the portal?: Yes (CM facilitated) CODE STATUS:: Full Code INSURANCE COVERAGE / FINANCIAL ISSUES:: BC/BS CURRENT HOME/COMMUNITY SERVICES/EQUIPMENT:: none PRIMARY CARE PHYSICIAN:: Manuel Stanley POTENTIAL DISCHARGE NEEDS:: Follow up with surgeon and discharge plan of care PATIENT/FAMILY EDUCATION NEEDS:: Discharge and follow up plans, limitations, Ask Me Three TRANSPORTATION:: via private vehicle with family PLAN:: Eli will likely discharge home with no new services. She will follow up with her surgeon and discharge plan of care. CM will continue to support patient, family and discharge planning needs.
[2019-06-15] MEDS: Acetaminophen 325 MG TAB 650 MG PO (12:24)
[2019-06-15] MEDS: Ketorolac 30 MG/ML VIAL IVP (14:07)
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
--- NOTE | 2019-06-15 14:57 | RESPIRATORY ---
Spoke with patient concerning home inhalers of Flovent and ProAir to see if she normally uses them. Pt said she doesn't alway consistantly use her Flovent each day and she doesn't need them for her hospital stay. She's planning to be discharged tomorrow, TuesdayJune 16.
[2019-06-15] MEDS: Normal Saline 1,000 ML 50 ML IV (19:33)
[2019-06-16] MEDS: PIPERACILLIN/TAZO 3.375 GM in Normal Saline 50 ML IVPB ×2 (02:02→07:46)
[2019-06-16 03:36] VITALS: BP 129/82; PULSE 66; RESP 18; TEMP 37; O2SAT 97
[2019-06-16 07:30] VITALS: BP 117/78; PULSE 66; RESP 24; TEMP 37; O2SAT 98
--- NOTE | 2019-06-16 10:31 | DSE_ITS ---
Date of service: 06/16/19 Time of Service: 10:31 DS: Diagnosis Discharge Diagnosis (1) Diverticulitis: Status: Chronic Discharge Plan Disposition Patient Disposition: HOME Condition: Stable Discharge Details Chief Complaint: Abd Prob Clinical Impression: Diverticulitis Reason For Visit: DIVERTICULITIS WITH MICROPERFORATION Admit Date/Time: 06/14/19 23:27 Admit Provider: Archana French Attending Provider: Archana French Primary Care Provider: Manuel Sanchez ED Provider: Jean Lopez Hospital Course Hospital Course: The patient presented to the ER on 06/14/19 with worsening left sided abdominal pain and N/V, which was her main complaint. She had been diagnosed with diverticulitis on 06/12/19 and started on antibiotics. She was having some difficulty with the PO antibiotics and only took 1/2 a tablet of the Cipro and 1 tab of the flagyl. She has A PMHx significant for chronic N/V and chronic diarrhea. She is being seen by GI at [facility] [place]. She has been having small stools with no blood present. Repeat CT scan was compared to her recent CT and shows descending colon inflammation with a new contained microperforation. There was blood noted in her urine. Discussed with patient and she is currently on her period which is most likely the source of the blood in the urine. She has no dysuria or hematuria. She has had no pain since admission. Her WBC count is normal. She has tolerated a soft diet without N/V. She will be discharged on Augmentin for 10 days Home Meds and New Rx's Prescriptions: New acetaminophen [Tylenol] 325 mg Tablet 650 mg PO Q4H PRN PRNQty: 30 RF: 0 amoxicillin-pot clavulanate 875-125 mg tablet 1 tab PO BID Qty: 20 RF: 0 Continued albuterol sulfate [ProAir HFA] 8.5 GM HFA aerosol inhaler 1 puff Inhalation Q4H PRN Qty: 3 RF: 12 Flovent HFA 12 GM HFA aerosol inhaler 2 puff Inhalation BID Qty: 3 RF: 12 omeprazole 40 MG capsule,delayed release(DR/EC) 40 mg PO DAILY Qty: 90 RF: 3 ibuprofen 200 MG tablet 2 tab PO PRN RF: 0 metoclopramide HCl [Reglan] 10 mg tablet 10 mg PO Q6H PRN (Reason: nausea and vomiting) Qty: 12 RF: 0 Discontinued ciprofloxacin HCl [Cipro] 500 mg tablet 500 mg PO BID 10 Days Qty: 20 RF: 0 metronidazole [Flagyl] 500 mg tablet 500 mg PO Q8H 10 Days Qty: 30 RF: 0 Discharge Instructions Instructions: Diverticulitis (GEN), Diverticulitis Diet (GEN) Additional Instructions: Activity at Home after surgery: As tolerated Diet, Nutrition, & wound healin. Low fiber/ soft diet for 3-4 weeks 2. Drink plenty of liquids to stay hydrated and avoid constipation Pain Medications: 1. Tylenol 650 mg every 6 hours as needed for pain 2. Ibuprofen 400 mg every 6 hours with food as needed for pain For Constipation: 1. Take Milk of Magnesia or MiraLax as needed for constipation Please call our office if you develop: 1. Fevers >101.5 2. Nausea or Vomiting 3. Worsening pain 4. Redness and thick discharge from the wounds If after hours please call the Hospital at and ask to speak to the on-call surgeon Activity:: Activity as Tolerated Equipment/Supplies:: No Equipment Needed Diet:: low fiber Discharge Orders Discharge Orders: Discharge Order (Routine); Ordered 06/16/19 Ordered By: Carla Horn DS: Summary Status at Discharge Functional status at discharge: independent ambulation Overall status at discharge: patient is back to baseline Mental Status: mental status grossly normal Speech and Movement: speech and movement normal Mood: congruent mood Affect: normal affect Time Spent with Patient providing and/or coordinating discharge services: Less than 30 minutes Exam Const General: cooperative and no acute distress Orientation: alert and oriented x3 HENMT Head: normocephalic and atraumatic Resp Effort & Inspection: normal respiratory effort Cardio Rate: regular rate Rhythm: regular rhythm GI Inspection: normal to inspection Palpation: soft, no hepatosplenomegaly and nontender Auscultation: normal bowel sounds Psych Mental Status: mental status grossly normal Speech and Movement: speech and movement normal Mood: congruent mood Affect: normal affect DS: Data Vitals/I&O Vitals and I&O: Vital Signs Temperature 98.6 F 06/16/19 03:36 Temperature Source Tympanic 06/16/19 03:36 Pulse 66 06/16/19 03:36 Pulse Rhythm Regular 06/16/19 08:53 Respiratory Rate 18 06/16/19 03:36 Respiratory Effort 06/16/19 08:53 Respiratory Depth Shallow 06/16/19 08:53 Respiratory Pattern Normal 06/16/19 08:53 Blood Pressure 129/82 06/16/19 03:36 Pulse Oximetry 97 06/16/19 03:36 Oxygen Delivery Method Room Air 06/16/19 03:36 Oxygen Flow Rate 0 06/16/19 03:36 Pain Level 0 06/16/19 03:36 Intake & Output 06/15/19 06/15/19 06/16/19 11:59 23:59 11:59 Intake Total 1350 / 2600 1250 / 2600 844.167 / 844.167 Output Total 600 / 1000 400 / 1000 1100 / 1100 Balance 750 / 1600 850 / 1600 -255.833 / -255.833 Weight 116 lb 13.52 oz 122 lb 2.177 oz Intake: IV 1170 / 2270 1100 / 2270 424.167 / 424.167 Oral 180 / 330 150 / 330 420 / 420 Output: Urine 600 / 1000 400 / 1000 1100 / 1100 Other: Urine Color [place] Dark Red Urine Appearance Clots Clots Clear Urine Odor None Comment Pt reports she is having menstruation. per pt report. pt stated hat was full to top. Stool Occult Blood Negative Stool Size Small Small Stool Characteristics Soft Liquid Formed Brown Green Voiding Methods Toilet Toilet Toilet [facility] Medical History Diverticulitis (Chronic) Gastritis Surgical History Cholecystectomy 2008-Dr. Garcia Colonoscopy - IV Sedation 2009-Dr. Sloan Colonoscopy - MAC (09/01/16) EGD - IV Sedation 2009-Dr. Sloan EGD - MAC (09/01/16) Ligation of fallopian tube Family History Mother Essential hypertension Heart disease Hyperlipidemia Myocardial infarction AFTER SURGERY AND BLEEDING W/ BLOOD CLOT TO THE HEART. Father Alcohol abuse Personal history of malignant neoplasm THROAT/LIVER/LUNG Sister No problems noted. Brother Alcohol abuse Personal history of malignant neoplasm LIVER Grandfather No problems noted. Grandfather Personal history of malignant neoplasm Heart disease Grandmother Essential hypertension Stroke Grandmother Personal history of malignant neoplasm Social History Smoking/Tobacco Use Status: Current every day Tobacco Type: cigarettes Smoking packs per day: 0.5 Smoking cigarettes per day: 10.0 Alcohol Intake: never Drug use: Never Substance use type: does not use Household members: other Details: 4 Duration: 15-30 minutes/day Frequency: 3-4 times per week Do you feel safe in your relationship?: Yes
--- NOTE | 2019-06-16 12:04 | PDOC.CMDIS ---
- If Service Date Differs Date of service: 06/16/19 Time of Service: 12:04 LACE Index Scoring Tool - Questions: Length of Stay (in days): 3 Acuity (Admit via E.D.?): Yes E.D. Visits: 2 - Answers: Total Score: 8 Risk of Readmission: Low Risk Care Management Discharge Reason for Hospitalization: Diverticulitis Discharge Plan: Eli is being discharged home today she will follow up with provider as directed. She has clear instructions for diet and will continue on antibioitcs as well as tylenol for pain management. No other services needed at time of discharge. Patient/Family Education Needs: Discharge education, limitations and follow up plan of care including ask me three and self management.
== END 2019-06-16 11:29 | disposition home or self-care (01) | DRG 392 ==
LOC: ER 23:56 → MS 06-15 00:47
PROVIDERS: Admitting Provider Surgery; Emergency Provider Emergency Medicine; PCP Family Medicine; Visit Provider Surgery
DX: K57.20 Diverticulitis of large intestine with perforation and abscess without bleeding (principal); R31.9 Hematuria, unspecified; R11.2 Nausea with vomiting, unspecified; F17.210 Nicotine dependence, cigarettes, uncomplicated
CPT/HCPCS: 36415; 80053; 82550; 83690; 96361; 96365; 96375; 99223; 99238; 99285; 74177; 81003; 81015; 82248; 83605; 83735; 85025; 87086; J1885; J2543; J3010; J3490

== ENCOUNTER 2019-10-10 20:59 | Outpatient (REF) | payer MEDICAID, SELFPAY | END 2019-10-10 21:19 | LOC: LBN 20:59 | PROVIDERS: PCP Family Medicine; Visit Provider Nurse Practitioner Family | DX: N89.8 Other specified noninflammatory disorders of vagina (principal) | CPT/HCPCS: 87480; 87510; 87660 ==

== ENCOUNTER 2020-02-15 09:27 | Emergency (ER) | payer MEDICAID, SELFPAY ==
[2020-02-15 09:34] VITALS: BP 152/81; PULSE 71; RESP 16; TEMP 36.6; O2SAT 100
[2020-02-15 09:47] LABS: Bilirubin Negative (Negative); Blood Negative (Negative); Clarity Clear (Clear); Glucose 500 mg/dL (Negative); Ketones 40 mg/dL (Negative); Leukocyte Esterase Negative (Negative); Nitrite Negative (Negative); Specific Gravity 1.025 (1.005-1.025); Urobilinogen 0.2 EU/dL (Up TO 0.2)
[2020-02-15 09:53] LABS: Abs Immature Grans 0.07 10^3/uL (0.0-0.06); Absolute Basophil Count 0.02 10^3/uL (0.0-0.2); Absolute Eosinophil Count 0.03 10^3/uL (0.0-0.7); Absolute Lymphocyte Count 1.01 10^3/uL (1.2-3.4); Absolute Monocyte Count 0.35 10^3/uL (0.1-0.8); Absolute Neutrophil Count 15.38 10^3/uL (1.2-6.7); Basophils % 0.1; Eosinophils % 0.2; HCT 43.9 % (36.0-46.0); HGB 14.9 g/dL (11.2-15.7); Immature Grans % 0.4; MCH 30.5 pg (27.0-33.0); MCHC 33.9 % (32.0-36.0); MPV 9.9 fL (8.0-11.0); Monocytes % 2.1; Neutrophils % 91.2; Nucleated RBC 0 %; Platelet Count 436 10^3/uL (130-400); RBC 4.88 10^6/uL (3.93-5.22); RDW 13.3 % (11.7-14.6); RDW-SD 43.7 fL; WBC 16.86 10^3/uL (4.4-10.8)
--- NOTE | 2020-02-15 09:55 | W.ED.GENAD ---
Discharge Plan Disposition Patient Disposition: HOME Condition: Improving Discharge Details Clinical Impression: Leukocytosis, Abdominal pain, Nausea & vomiting Primary Care Provider: Manuel Sanchez ED Provider: Monica Butcher Home Meds and New Rx's Prescriptions: New ondansetron 4 mg tablet,disintegrating 4 mg PO Q6H PRN (Reason: nausea and vomiting) Qty: 14 RF: 0 Continued celecoxib [Celebrex] 200 mg capsule 200 mg PO DAILY PRN (Reason: pain) Qty: 30 RF: 2 Saccharomyces boulardii [Probiotic (S.boulardii)] 250 mg capsule 250 mg PO BID Qty: 60 RF: 0 omeprazole 40 MG capsule,delayed release(DR/EC) 40 mg PO DAILY Qty: 90 RF: 3 cyclobenzaprine 5 mg tablet See Rx Instructions PO .COMPLEX RF: 0 Flovent HFA 110 mcg/actuation HFA aerosol inhaler 2 puff Inhalation BID Qty: 3 RF: 0 albuterol sulfate [ProAir HFA] 90 mcg/actuation HFA aerosol inhaler 1 puff Inhalation Q4H PRN Qty: 3 RF: 0 acetaminophen [Tylenol] 325 mg Tablet 650 mg PO Q4H PRN PRNQty: 30 RF: 0 No Action promethazine 25 mg tablet 25 mg PO TID PRN (Reason: nausea and vomiting) Qty: 10 RF: 0 Discharge Instructions Instructions: Acute Nausea and Vomiting (ED), Abdominal Pain (ED) Additional Instructions: Your labs show an elevated white count. You have had this multiple times in the past but I would like to discuss this further with your primary care next week. He did appear dehydrated, please encourage water intake. Your imaging was reassuring did not show any evidence of diverticulitis. With your improvement with the meds given here, and concern for gastritis. Please continue with Mylanta as needed for symptoms. If you develop fever/chills, inability stay hydrated, increased pain or other new/worsening symptoms please seek care urgently once again. Otherwise, please follow-up with your primary care the beginning next week for reevaluation. Referrals: Manuel Sanchez [Primary Care Provider] - Discharge Data Discharge Date/Time-TO BE ENTERED AT DEPARTURE: 02/15/20 12:25 Medical Decision Making Patient is a pleasant 34-year-old female presents today with chief complaint of left upper quadrant pain. She reports pain is similar to when she had diverticulitis historically. She reports the pain began last night. States that she has had nausea and vomited x2. Denies any fevers. States that she has had some chills. Pain does not radiate. Reports the pain is quite similar to when she had diverticulitis historically but may be more superior and anterior. Denies any back pain. No change in bowel or bladder habits. Denies any hematuria. No blood in her stool. No hematemesis. On exam, patient appears uncomfortable and is holding an emesis bag. Lungs are clear, normal cardiac exam. Abdominal exam is fairly benign with no focal area of pain or peritoneal findings although she does endorse some discomfort with palpation over the epigastric as well as the left upper quadrant. Pain seems to be maximal at the epigastric region. No CVA tenderness. Concerned for recurrent diverticulitis. Also consider pancreatitis, gastritis versus other abdominal etiology. Labs reviewed. Leukocytsosi with white count of 16.86. This is fairly chronic for the patient, unclear if this represents an acute infection at this time. Lipase normal. Elevated anion gap at 14, patient is receiving hydration. Glucose elevated at 164, this is baseline. Alk phos elevated at 133, again this is baseline. UA without evdience of infection. Protein, glucose and ketones elevated. CT reviewed by radiologist. He advised no evidence of diverticulitis, no appendicitis. He advises no acute abnormality. I reviewed patients chart. She has had similar presentation in 2018 at which time she was diagnosed with gastritis. She responded well at that time with zofran and mylanta. Will hold on Morphine, give GI cocktail along with the zofran. Patient appears clinically improved after the Zofran and GI cocktail. She reports that immediately after taking GI cocktail she did have recurrence of her nausea but this is since subsided. She reports that she still continues to have mild pain and mild nausea but declines any further intervention at this point. She is continuing to receive hydration and we will reassess. Reevaluated patient again, she is reporting feeling slightly improved at this time and is ready for discharge home. We did discuss her leukocytosis and she will follow-up her primary care provider regarding this. At this point, I do not see any evidence to suggest acute bacterial infection. She received a liter of fluids. She will follow-up with her primary care provider at the beginning of the week. Strict return precautions were given. All her questions and concerns were addressed and she is in agreement this plan. HPI General Mode of arrival: ambulatory. Date/Time Provider Initiated Documentation: 02/15/20 09:55. Limitations to Documentation: no limitations. Information obtained by: patient and RN notes reviewed. History of Present Illness 44 year old F presents to the emergency department with the chief complaint of LUQ pain, described as moderate and similar to prior episodes (hx of diveriticulitis, feels similar), with intensity rated at 7. Quality is described as stabbing, and is localized to the abdomen. Patient reports no radiation. Patient started experiencing this day(s) (began last night) and it has been constant. No relieving factors improve symptom(s), No exacerbating factors reported . Patient notes loss of appetite and nausea/vomiting; denies chest pain, cough, fever/chills, rash and shortness of breath. Patient did receive the following treatments prior to arrival, none Related Data Home Medications Medication Instructions Recorded Confirmed omeprazole 40 mg PO DAILY #90 tab-cap 09/29/16 02/16/20 acetaminophen [Tylenol] 650 mg PO Q4H PRN PRN #30 tab 06/16/19 02/16/20 cyclobenzaprine 5 mg tablet See Rx Instructions PO .COMPLEX 10/08/19 02/16/20 albuterol sulfate 90 mcg/actuation 1 puff INHALATION Q4H PRN #3 10/15/19 02/16/20 aerosol inhaler inhaler fluticasone propionate 110 2 puff INHALATION BID #3 canister 10/15/19 02/16/20 mcg/actuation HFA aerosol inhaler Saccharomyces boulardii 250 mg 250 mg PO BID #60 cap 01/02/20 02/16/20 capsule celecoxib 200 mg capsule 200 mg PO DAILY PRN #30 cap 01/02/20 02/16/20 ondansetron 4 mg PO Q6H PRN #14 tab 02/15/20 02/16/20 promethazine 25 mg PO TID PRN #10 tab 02/16/20 Previous Rx's Medication Instructions Recorded acetaminophen [Tylenol] 650 mg PO Q4H PRN PRN #30 tab 06/16/19 albuterol sulfate 90 mcg/actuation 1 puff INHALATION Q4H PRN #3 10/15/19 aerosol inhaler inhaler fluticasone propionate 110 2 puff INHALATION BID #3 canister 10/15/19 mcg/actuation HFA aerosol inhaler Saccharomyces boulardii 250 mg 250 mg PO BID #60 cap 01/02/20 capsule celecoxib 200 mg capsule 200 mg PO DAILY PRN #30 cap 01/02/20 ondansetron 4 mg PO Q6H PRN #14 tab 02/15/20 promethazine 25 mg PO TID PRN #10 tab 02/16/20 Allergies Allergy/AdvReac Type Severity Reaction Status Date / Time hydrocodone AdvReac Severe Restlessnes Unverified 02/16/20 14:10 s nicotine AdvReac Severe Caused Unverified 02/16/20 14:10 pain down extremity amoxicillin AdvReac thrush Verified 02/16/20 14:10 bupropion [From Wellbutrin] AdvReac jitters Unverified 02/16/20 14:10 tramadol AdvReac restlessnes Verified 02/16/20 14:10 s General Stated Complaint: Abd Prob ROSI: 3 Review of Systems Constitutional Constitutional: Reports as per HPI, Reports chills, Reports fatigue, Denies fever(s), Denies headache(s) and Reports poor appetite ENT Ears, Nose, Mouth, and Throat: Denies headache(s) Cardiovascular Cardiovascular: Reports as per HPI, Denies chest pain and Denies dyspnea Respiratory Respiratory: Reports as per HPI, Denies cough and Denies dyspnea Gastrointestinal Gastrointestinal: Reports as per HPI Musculoskeletal Musculoskeletal: Reports as per HPI and Denies back pain Integumentary/Breasts Skin/Breast: Reports as per HPI and Denies rash Neurologic Neurologic: Reports as per HPI and Denies headache(s) Endocrine Endocrine: Reports fatigue PFSH Medical History (Updated 02/16/20 @ 16:15 by Shanel Posada) Diverticulitis Gastritis Surgical History Cholecystectomy 2008-Dr. Garcia Colonoscopy - IV Sedation 2009-Dr. Sloan Colonoscopy - MAC (09/01/16) EGD - IV Sedation 2009-Dr. Sloan EGD - MAC (09/01/16) Ligation of fallopian tube Family History Mother Essential hypertension Heart disease Hyperlipidemia Myocardial infarction AFTER SURGERY AND BLEEDING W/ BLOOD CLOT TO THE HEART. Father Alcohol abuse Personal history of malignant neoplasm THROAT/LIVER/LUNG Sister No problems noted. Brother Alcohol abuse Personal history of malignant neoplasm LIVER Grandfather No problems noted. Grandfather Personal history of malignant neoplasm Heart disease Grandmother Essential hypertension Stroke Grandmother Personal history of malignant neoplasm Social History Smoking/Tobacco Use Status: Current every day Tobacco Type: cigarettes Smoking packs per day: 0.5 Smoking cigarettes per day: 10.0 Alcohol Intake: never Drug use: Never Substance use type: does not use Household members: other Details: 4 Duration: 15-30 minutes/day Frequency: 3-4 times per week Do you feel safe at home: Yes Do you feel safe in your relationship?: Yes Exam Const General: cooperative, uncomfortable (holding emesis bag), no acute distress, well developed and ill appearing acutely Nutritional Appearance: average body habitus and well nourished Orientation: alert and awake HENMA Head: normal to inspection Mouth: moist mucous membranes Resp Effort & Inspection: normal respiratory effort, able to speak in complete sentences and no respiratory distress Auscultation: clear to auscultation bilaterally, no rales, no rhonchi and no wheezes Cardio Rate: regular rate Rhythm: regular rhythm Heart Sounds: S1 normal and S2 normal GI Inspection: normal to inspection Palpation: soft, no hepatosplenomegaly, not firm, no guarding, no hernias, no masses, no pulsatile masses, not rigid, tender in the epigastrum and in the LUQ and No ascites Percussion: normal to percussion Auscultation: normal bowel sounds Back/Spine/Pelvis Back: no CVA tenderness Skin General skin exam: no rashes or lesions noted Trauma: no lacerations or abrasions Neuro General: patient alert and patient awake Cognition: normal cognition Speech: speech normal Gait: normal gait Psych Appearance: grossly normal and well kempt Mental Status: mental status grossly normal Speech and Movement: speech and movement normal Course Vital Signs Vital signs: Vital Signs Temperature 36.6 C 02/15/20 09:34 Pulse 71 02/15/20 09:34 Respiratory Rate 16 02/15/20 09:34 Blood Pressure 152/81 H 02/15/20 09:34 Pulse Oximetry 100 02/15/20 09:34 Temperature 36.6 C 02/15/20 09:34 Temperature Source Tympanic 02/15/20 09:34 Pulse 71 02/15/20 09:34 Respiratory Rate 16 02/15/20 09:34 Respiratory Effort Non-Labored 02/15/20 09:43 Blood Pressure 152/81 H 02/15/20 09:34 Blood Pressure Position Sitting 02/15/20 09:34 Pulse Oximetry 100 02/15/20 09:34 Oxygen Delivery Method Room Air 02/15/20 09:34 Oxygen Flow Rate 0 02/15/20 09:34 Pain Level 7 02/15/20 09:34 Lab/Test Results Lab/Test Results: Laboratory Tests Range/Units 02/15/20 09:40 Urine Color (Yellow) Yellow Urine Clarity (Clear) Clear Urine pH (5-8) 7.0 Ur Specific [place] (1.005-1.025) 1.025 Urine Protein (Negative) mg/dL 100 H Urine Ketones (Negative) mg/dL 40 H Urine Blood (Negative) Negative Urine Nitrite (Negative) Negative Urine Bilirubin (Negative) Negative Urine Urobilinogen (Up TO 0.2) EU/dL 0.2 Ur Leukocyte Esterase (Negative) Negative Urine Glucose (Negative) mg/dL 500 H
[2020-02-15 09:59] LABS: Bacteria Negative HPF (Negative); C & S Indicated? No; Casts Negative LPF (Negative); Crystals Negative HPF (Negative); Epithelial Cells Few HPF (Negative); Mucus Trace (Negative); RBC Negative HPF (0-2); WBC 0-2 HPF (0-5)
[2020-02-15 10:07] LABS: ALT 18 U/L (14-59); AST 14 U/L (15-37); Albumin 4.1 g/dL (3.4-5.0); Alkaline Phosphatase 133 U/L (46-116); BUN 12 mg/dL (7-18); Bilirubin, Total 0.7 mg/dL (0.2-1.0); CREATININE 1.01 mg/dL (0.55-1.02); Calcium 9.3 mg/dL (8.5-10.1); Chloride 98 mmol/L (98-107); Estimated GFR 59.27 (mL/min/1.73m2); Glucose 164 mg/dL (74-106); Potassium 3.5 mmol/L (3.5-5.1); Sodium 135 mmol/L (136-145); Total Protein 8.3 g/dL (6.4-8.2)
[2020-02-15 10:15] LABS: Lipase 83 U/L (73-393)
[2020-02-15] MEDS: Omnipaque 350 MG/ML 100 ML BTL IJ (10:27)
[2020-02-15] MEDS: Normal Saline - Diluent 50 ML VIAL IV (10:28)
[2020-02-15] MEDS: Normal Saline Flush 10 ML SYR IVP (10:29)
[2020-02-15] MEDS: Normal Saline 1,000 ML 1000 ML IV (10:29)
[2020-02-15] MEDS: Ondansetron 4 MG/2 ML VIAL IVP (10:29)
--- NOTE | 2020-02-15 10:30 | DI.CT_ITS ---
EXAM: CT ABDOMEN PELVIS W INDICATION: LUQ pain. COMPARISON: CT CT ABDOMEN PELVIS W from 06/14/2019 TECHNIQUE: FINDINGS: CT examination of the abdomen and pelvis was performed with a bolus infusion of 100 cc of Omnipaque 3 50. Images obtained through the lung bases are unremarkable. The liver is unremarkable appearance. Gallbladder and bile ducts are CT normal. Pancreas appears normal. Spleen is unremarkable in appearance. Adrenals and kidneys are unremarkable. Urinary bladder unremarkable. Abdominal aorta is of normal diameter and no major vascular abnormality is seen. No abdominal wall hernia. No abdominal or pelvic adenopathy. [employer] structures appear intact. Appendix is normal. No evidence of diverticulitis or bowel obstruction. IMPRESSION: Negative CT examination of the abdomen and pelvis. RADIATION DOSE DELIVERED: 642.6mGy.cm Total DLP 642.6mGy.cm Total DLP
[2020-02-15 12:15] VITALS: BP 141/86; PULSE 66; RESP 16; O2SAT 100
== END 2020-02-15 12:25 | disposition home or self-care (01) ==
PROVIDERS: Physician Assistant; Emergency Provider Physician Assistant; PCP Family Medicine
DX: R11.2 Nausea with vomiting, unspecified (principal); D72.829 Elevated white blood cell count, unspecified; R10.13 Epigastric pain; E86.0 Dehydration; R10.12 Left upper quadrant pain
CPT/HCPCS: 80053; 83690; 96361; 96374; 99285; 74177; 81003; 81015; 85025; 99284; J2405; J3490

== ENCOUNTER 2020-02-16 13:59 | Emergency (ER) | payer MEDICAID, SELFPAY ==
[2020-02-16] VITALS (16 sets, daily range): BP systolic 99–153; BP diastolic 68–89; PULSE 65–77; RESP 18; TEMP 36.6; O2SAT 98–100
--- NOTE | 2020-02-16 14:43 | W.ED.GENAD ---
Discharge Plan Disposition Patient Disposition: HOME Condition: Stable Discharge Details Clinical Impression: Abdominal pain Primary Care Provider: Manuel Sanchez ED Provider: Shanel Posada Home Meds and New Rx's Prescriptions: New promethazine 25 mg tablet 25 mg PO TID PRN (Reason: nausea and vomiting) Qty: 10 RF: 0 Continued celecoxib [Celebrex] 200 mg capsule 200 mg PO DAILY PRN (Reason: pain) Qty: 30 RF: 2 Saccharomyces boulardii [Probiotic (S.boulardii)] 250 mg capsule 250 mg PO BID Qty: 60 RF: 0 omeprazole 40 MG capsule,delayed release(DR/EC) 40 mg PO DAILY Qty: 90 RF: 3 cyclobenzaprine 5 mg tablet See Rx Instructions PO .COMPLEX RF: 0 Flovent HFA 110 mcg/actuation HFA aerosol inhaler 2 puff Inhalation BID Qty: 3 RF: 0 albuterol sulfate [ProAir HFA] 90 mcg/actuation HFA aerosol inhaler 1 puff Inhalation Q4H PRN Qty: 3 RF: 0 acetaminophen [Tylenol] 325 mg Tablet 650 mg PO Q4H PRN PRNQty: 30 RF: 0 ondansetron 4 mg tablet,disintegrating 4 mg PO Q6H PRN (Reason: nausea and vomiting) Qty: 14 RF: 0 Discharge Instructions Instructions: Abdominal Pain (ED) Additional Instructions: Follow up with primary care provider in 3-5 days. Return to ED sooner if any worsening or concerns. Increase oral fluids. Please take Tylenol or Ibuprofen with food every 4-6 hours as needed for pain and swelling. Clear liquids for the first 48 to 72 hours then begin with a bland diet as tolerated. Take medications as prescribed. Referrals: Manuel Sanchez [Primary Care Provider] - Discharge Data Discharge Date/Time-TO BE ENTERED AT DEPARTURE: 02/16/20 16:50 Medical Decision Making 44-year-old female presents to the ED with chief complaint of left-sided abdominal pain. She was seen here yesterday for same states her pain is worsened and she now has more pain to the flank area she reports taking antiemetics as prescribed has not actually vomited but is very nauseous and is dry heaving. She is only able to hold down ice chips at this time. She denies any fever or any other concerns or associated symptoms. 1611: Patient reevaluation, she states that the nausea has gotten better still complaining of left sided abdominal pain. Discussed the risks with re- CTing patient due to having a CT scan which was negative yesterday. Labs are largely unchanged as yesterday. Ordered Tylenol IV piggyback to be given at this time.Discussed strict return instructions with patient, verbalized understanding. HPI General Mode of arrival: ambulatory. Date/Time Provider Initiated Documentation: 02/16/20 14:00. Limitations to Documentation: no limitations. Information obtained by: patient. HPI Narrative: 44-year-old female presents to the ED with chief complaint of left-sided abdominal pain. She was seen here yesterday for same states her pain is worsened and she now has more pain to the flank area she reports taking antiemetics as prescribed has not actually vomited but is very nauseous and is dry heaving. She is only able to hold down ice chips at this time. She denies any fever or any other concerns or associated symptoms. Related Data Home Medications Medication Instructions Recorded Confirmed omeprazole 40 mg PO DAILY #90 tab-cap 09/29/16 02/16/20 acetaminophen [Tylenol] 650 mg PO Q4H PRN PRN #30 tab 06/16/19 02/16/20 cyclobenzaprine 5 mg tablet See Rx Instructions PO .COMPLEX 10/08/19 02/16/20 albuterol sulfate 90 mcg/actuation 1 puff INHALATION Q4H PRN #3 10/15/19 02/16/20 aerosol inhaler inhaler fluticasone propionate 110 2 puff INHALATION BID #3 canister 10/15/19 02/16/20 mcg/actuation HFA aerosol inhaler Saccharomyces boulardii 250 mg 250 mg PO BID #60 cap 01/02/20 02/16/20 capsule celecoxib 200 mg capsule 200 mg PO DAILY PRN #30 cap 01/02/20 02/16/20 ondansetron 4 mg PO Q6H PRN #14 tab 02/15/20 02/16/20 promethazine 25 mg PO TID PRN #10 tab 02/16/20 Previous Rx's Medication Instructions Recorded acetaminophen [Tylenol] 650 mg PO Q4H PRN PRN #30 tab 06/16/19 albuterol sulfate 90 mcg/actuation 1 puff INHALATION Q4H PRN #3 10/15/19 aerosol inhaler inhaler fluticasone propionate 110 2 puff INHALATION BID #3 canister 10/15/19 mcg/actuation HFA aerosol inhaler Saccharomyces boulardii 250 mg 250 mg PO BID #60 cap 01/02/20 capsule celecoxib 200 mg capsule 200 mg PO DAILY PRN #30 cap 01/02/20 ondansetron 4 mg PO Q6H PRN #14 tab 02/15/20 promethazine 25 mg PO TID PRN #10 tab 02/16/20 Allergies Allergy/AdvReac Type Severity Reaction Status Date / Time hydrocodone AdvReac Severe Restlessnes Unverified 02/16/20 14:10 s nicotine AdvReac Severe Caused Unverified 02/16/20 14:10 pain down extremity amoxicillin AdvReac thrush Verified 02/16/20 14:10 bupropion [From Wellbutrin] AdvReac jitters Unverified 02/16/20 14:10 tramadol AdvReac restlessnes Verified 02/16/20 14:10 s General Stated Complaint: Abd Prob ROSI: 3 Review of Systems Narrative: Constitutional: Negative for weight loss, alert and oriented, well groomed, normal body habitus, appears comfortable. HEENT: Denies trauma, headaches, blurry vision, nasal discharge, sore throat, trouble swallowing. Chest: Denies chest pain, palpitations, irregular rhythm, hypertension. Respiratory: Denies Shortness of breath, cough, hemoptysis. GI: Denies vomiting, diarrhea, constipation. Positive abdominal pain nausea. : Denies dysuria, hematuria, rectal bleeding. Positive left leg pain. Neuro: Denies dizziness, blurry vision, weakness, syncope, headache or facial numbness. Hematologic: Denies easy bruising, intolerance to heat or cold, hair loss. [facility] Medical History (Updated 02/16/20 @ 16:15 by Shanel Posada) Diverticulitis Gastritis Surgical History Cholecystectomy 2008-Dr. Garcia Colonoscopy - IV Sedation 2009-Dr. Sloan Colonoscopy - MAC (09/01/16) EGD - IV Sedation 2009-Dr. Sloan EGD - MAC (09/01/16) Ligation of fallopian tube Family History Mother Essential hypertension Heart disease Hyperlipidemia Myocardial infarction AFTER SURGERY AND BLEEDING W/ BLOOD CLOT TO THE HEART. Father Alcohol abuse Personal history of malignant neoplasm THROAT/LIVER/LUNG Sister No problems noted. Brother Alcohol abuse Personal history of malignant neoplasm LIVER Grandfather No problems noted. Grandfather Personal history of malignant neoplasm Heart disease Grandmother Essential hypertension Stroke Grandmother Personal history of malignant neoplasm Social History Smoking/Tobacco Use Status: Current every day Tobacco Type: cigarettes Smoking packs per day: 0.5 Smoking cigarettes per day: 10.0 Alcohol Intake: never Drug use: Never Substance use type: does not use Household members: other Details: 4 Duration: 15-30 minutes/day Frequency: 3-4 times per week Do you feel safe at home: Yes Do you feel safe in your relationship?: Yes Exam Narrative Exam Narrative: Constitutional: Alert and oriented x3. Appears stated age. Normal body habitus. Head: Normocephalic, no trauma. Eyes: Pupils PERRLA, Red reflex noted, EOM's intact. Eyelids symmetrical without lesions, discharge, or swelling. ENT: Bilateral TM's WNL, External ear normal to inspection, no mastoid TTP, swelling, or erythema, Nasal turbinates WNL, no nasal discharge. Normal dentition, Posterior pharynx WNL, no exudate. Chest: RRR, Normal S1, S2, distal pulses intact. Resp: Lungs clear to auscultation bilaterally, no wheezes, rales, or rhonchi. Abdomen: Soft, nondistended. Musculoskeletal: Normal gait, 5/5 strength to all four extremities. Skin: No suspicious rashes or lesions. Capillary refill less than 2 sec. Neurologic: Cranial nerves II-XII intact. Alert and oriented x 3. DTR's intact. Hematologic/Lymphatic: No ecchymosis, no lymphadenopathy. Course Vital Signs Vital signs: Vital Signs Temperature 36.6 C 02/16/20 14:04 Pulse 65 02/16/20 14:04 Respiratory Rate 18 02/16/20 14:04 Blood Pressure 153/89 H 02/16/20 14:04 Pulse Oximetry 100 02/16/20 14:04 Temperature 36.6 C 02/16/20 14:04 Temperature Source Skin 02/16/20 14:04 Pulse 65 02/16/20 14:04 Respiratory Rate 18 02/16/20 14:04 Respiratory Effort Non-Labored 02/16/20 14:08 Blood Pressure 153/89 H 02/16/20 14:04 Pulse Oximetry 100 02/16/20 14:04 Oxygen Delivery Method Room Air 02/16/20 14:04 Oxygen Flow Rate 0 02/16/20 14:04
[2020-02-16 14:59] LABS: Bilirubin Negative (Negative); Blood Negative (Negative); Clarity Clear (Clear); Glucose Negative (Negative); Ketones >=160 mg/dL (Negative); Leukocyte Esterase Negative (Negative); Nitrite Negative (Negative); Specific Gravity 1.025 (1.005-1.025); Urobilinogen 0.2 EU/dL (Up TO 0.2); pH 7.5 (5-8)
[2020-02-16] MEDS: Normal Saline 1,000 ML 1000 ML IV (15:05)
[2020-02-16 15:13] LABS: Bacteria Moderate HPF (Negative); C & S Indicated? No/Sq. Contamination; Casts Negative LPF (Negative); Crystals Moderate Amorphous HPF (Negative); Epithelial Cells Moderate HPF (Negative); Mucus Moderate (Negative); Other Cells Few Transitional (Negative); WBC 0-2 HPF (0-5)
[2020-02-16 15:24] LABS: Abs Immature Grans 0.07 10^3/uL (0.0-0.06); Absolute Monocyte Count 0.93 10^3/uL (0.1-0.8); Absolute Neutrophil Count 14.36 10^3/uL (1.2-6.7); Basophils % 0.1; HCT 40.1 % (36.0-46.0); HGB 13.7 g/dL (11.2-15.7); Immature Grans % 0.4; Lymphocytes % 8.9; MCH 30.6 pg (27.0-33.0); MCHC 34.2 % (32.0-36.0); MCV 89.7 fL (80-95); MPV 10.2 fL (8.0-11.0); Monocytes % 5.5; Neutrophils % 85.1; Nucleated RBC 0 %; Platelet Count 349 10^3/uL (130-400); RBC 4.47 10^6/uL (3.93-5.22); RDW 13.2 % (11.7-14.6); RDW-SD 43.2 fL; WBC 16.88 10^3/uL (4.4-10.8)
[2020-02-16 15:27] LABS: Absolute Basophil Count 0.02 10^3/uL (0.0-0.2)
[2020-02-16 15:47] LABS: ALT 14 U/L (14-59); AST 17 U/L (15-37); Albumin 3.5 g/dL (3.4-5.0); Alkaline Phosphatase 103 U/L (46-116); Anion Gap 13.4 mmol/L (3-11); BUN 11 mg/dL (7-18); Bilirubin, Total 0.5 mg/dL (0.2-1.0); CO2 21.6 mmol/L (21.0-32.0); CREATININE 0.55 mg/dL (0.55-1.02); Calcium 8.4 mg/dL (8.5-10.1); Chloride 100 mmol/L (98-107); Glucose 92 mg/dL (74-106); Magnesium 2.4 mg/dL (1.8-2.4); Potassium 3.6 mmol/L (3.5-5.1); Sodium 135 mmol/L (136-145); Total Protein 6.9 g/dL (6.4-8.2)
[2020-02-16] MEDS: ACETAMINOPHEN 1,000 MG/100 ML BTL 400 MG IVPB (16:25)
== END 2020-02-16 16:50 | disposition home or self-care (01) ==
PROVIDERS: Emergency Provider Registered Nurse Emergency; PCP Family Medicine
DX: R10.12 Left upper quadrant pain (principal); R11.0 Nausea
CPT/HCPCS: 36415; 36416; 80053; 82962; 96361; 96365; 96375; 99284; 81003; 81015; 83735; 85025; J0131

== ENCOUNTER 2020-07-30 11:21 | Outpatient (CLI) | payer MEDICAID, SELFPAY ==
[2020-07-30 12:34] LABS: Abs Immature Grans 0.05 10^3/uL (0.0-0.06); Absolute Basophil Count 0.05 10^3/uL (0.0-0.2); Absolute Lymphocyte Count 3.18 10^3/uL (1.2-3.4); Absolute Monocyte Count 0.84 10^3/uL (0.1-0.8); Basophils % 0.4; Eosinophils % 0.8; HCT 43.6 % (36.0-46.0); HGB 14.3 g/dL (11.2-15.7); Immature Grans % 0.4; Lymphocytes % 24.2; MCHC 32.8 % (32.0-36.0); MCV 88.4 fL (80-95); MPV 11.1 fL (8.0-11.0); Monocytes % 6.4; Neutrophils % 67.8; Nucleated RBC 0 %; Platelet Count 458 10^3/uL (130-400); RBC 4.93 10^6/uL (3.93-5.22); RDW 13.1 % (11.7-14.6); RDW-SD 42.7 fL; WBC 13.12 10^3/uL (4.4-10.8)
[2020-07-30 12:54] LABS: ALT 37 U/L (14-59); AST 18 U/L (15-37); Alkaline Phosphatase 126 U/L (46-116); Anion Gap 8.4 mmol/L (3-11); BUN 5 mg/dL (7-18); Bilirubin, Total 0.4 mg/dL (0.2-1.0); CO2 28.6 mmol/L (21.0-32.0); CREATININE 0.6 mg/dL (0.55-1.02); Calculated LDL 108 mg/dL (<100); Chloride 104 mmol/L (98-107); Cholesterol 171 mg/dL (<200); Glucose 96 mg/dL (74-106); HDL Cholesterol 42 mg/dL (40-60); Potassium 4.7 mmol/L (3.5-5.1); Sodium 141 mmol/L (136-145); Total Protein 7.4 g/dL (6.4-8.2); Triglyceride 107 mg/dL (<150)
[2020-07-30 13:07] LABS: Calcium 9.3 mg/dL (8.5-10.1)
== END 2020-07-30 11:22 | disposition home or self-care (01) ==
LOC: LOS 11:21
PROVIDERS: PCP Family Medicine; Visit Provider Nurse Practitioner Family
DX: Z13.220 Encounter for screening for lipoid disorders (principal); Z13.228 Encounter for screening for other metabolic disorders; Z00.00 Encounter for general adult medical examination without abnormal findings
CPT/HCPCS: 36415; 80053; 80061; 85025

== ENCOUNTER 2020-08-06 12:36 | Emergency (ER) | payer MEDICAID, SELFPAY ==
[2020-08-06 12:41] VITALS: BP 127/86; PULSE 82; RESP 16; TEMP 36.5; O2SAT 98
--- NOTE | 2020-08-06 13:06 | W.ED.GENAD ---
Discharge Plan Disposition Patient Disposition: HOME Condition: Stable Discharge Details Clinical Impression: Nausea, Abdominal pain, Diarrhea, Uterine fibroid Primary Care Provider: Manuel Sanchez ED Provider: Hazel Acevedo Home Meds and New Rx's Prescriptions: Continued amitriptyline 10 mg tablet 10 mg PO QHS Qty: 30 RF: 11 triamcinolone acetonide 0.5 % cream 1 applic topical BID Qty: 45 RF: 2 Saccharomyces boulardii [Probiotic (S.boulardii)] 250 mg capsule 250 mg PO BID Qty: 60 RF: 0 omeprazole 40 mg capsule,delayed release(DR/EC) 40 mg PO DAILY Qty: 90 RF: 3 promethazine 25 mg tablet 25 mg PO TID PRN (Reason: nausea and vomiting) Qty: 10 RF: 0 ciprofloxacin HCl 500 mg tablet 500 mg PO Q12H Qty: 14 RF: 0 metronidazole 500 mg tablet 500 mg PO Q8H Qty: 21 RF: 0 Flovent HFA 110 mcg/actuation HFA aerosol inhaler 2 puff Inhalation BID Qty: 3 RF: 0 albuterol sulfate [ProAir HFA] 90 mcg/actuation HFA aerosol inhaler 1 puff Inhalation Q4H PRN Qty: 3 RF: 0 acetaminophen [Tylenol] 325 mg Tablet 650 mg PO Q4H PRN PRNQty: 30 RF: 0 ondansetron 4 mg tablet,disintegrating 4 mg PO Q6H PRN (Reason: nausea and vomiting) Qty: 14 RF: 0 Discharge Instructions Instructions: Acute Nausea and Vomiting (ED), Acute Diarrhea (ED), Abdominal Pain (ED) Additional Instructions: Drink plenty of fluids and get plenty of rest. Take the antibiotics until finished. Alternate tylenol and motrin as needed and directed for pain. Take the pain medication for pain not relieved with Tylenol or ibuprofen. Follow-up with your scheduled appointment with your primary care doctor on Tuesday. Call [facility] tomorrow morning to schedule follow-up appointment for reevaluation and for outpatient pelvic ultrasound. Return a stool sample to the hospital as directed. Referrals: Cherry Pittman DO [OSTEOPATHIC DOCTOR] - Discharge Data Discharge Date/Time-TO BE ENTERED AT DEPARTURE: 08/06/20 15:57 Discharge Physician: Hazel Acevedo Medical Decision Making 44-year-old female presents to the ED with complaint of left-sided abdominal pain for the past 2 weeks and currently on treatment for potential diverticulitis with Cipro and Flagyl. Vitals within normal limits. Patient appears nontoxic. Her abdomen is soft but tender in the left upper lower quadrants. Will obtain screening labs, urinalysis, urine test and CT abdomen pelvis. We will also give IV fluids, Carafate, Pepcid and Toradol and reassess. Labs and imaging reviewed. White blood cell count 16. Patient has had leukocytosis dating back over 10 years which she is she has been aware of and has seen hematology for this. CT negative for diverticulitis but noted potential fibroid and either phleboliths or potential mesh in the pelvis. Discussed with patient at bedside and she denies any history of urogenital mesh. CT reviewed with gynecology who noted that phleboliths are quite common and there is no evidence of abscess. Patient reassessed and she feels much better and feels good to go home. She was unable to give a stool sample here. She was sent with a stool sample kit. She is advised to finish her Cipro and Flagyl as directed. She has a follow-up appointment with her primary care doctor in 2 days. She is advised also to call [facility] for follow-up for reevaluation and outpatient pelvic ultrasound. Discussed that her symptoms could be due to a viral versus bacterial diarrheal illness. Usual and customary return precautions given prior to discharge. Differential Diagnosis Differential Diagnosis: Diverticulitis, gastritis, gastroenteritis, uti, pyelonephritis, colitis Medical Records Medical records reviewed: Yes I reviewed the patient's medical records. Imaging Data Radiologic Study: Radiologist's impression: CT ABDOMEN PELVIS W CLINICAL HISTORY: nausea, L sided abd pain, r/o diverticulitis. TECHNIQUE: Imaging Protocol: Axial computed tomography images with coronal and sagittal reformatted images were created and reviewed CONTRAST MATERIAL: Intravenous: Omnipaque 100cc Oral: None COMPARISON: CT CT ABDOMEN PELVIS W from 02/15/2020 FINDINGS: VISUALIZED LUNG BASES: No nodules nor pleural effusions evident. ABDOMEN: There is no ascites. LIVER: There are no obvious focal hepatic lesions evident . GALLBLADDER/BILIARY: Gallbladder is again noted be surgically absent. CBD is not dilated. PANCREAS: No evidence of pancreatic mass nor dilatation of the pancreatic duct. SPLEEN: Spleen is not enlarged. No obvious intrasplenic lesions. Splenic and portal veins are patent. ADRENALS: There are no significant adrenal masses. KIDNEYS:No cysts evident. No solid renal masses. No calculi nor hydronephrosis.. ABDOMINAL AORTA: Calcified but not enlarged. LYMPH NODES:There is no retroperitineal nor paraaortic adenopathy. ABDOMINAL WALL/GI: No evidence of significant anterior abdominal wall hernia. No bowel obstruction. PELVIS: GI: Appendix is not well seen but there is no obvious secondary signs of appendicitis.There are sigmoid diverticuli noted. No evidence of obvious acute diverticulitis. No free fluid. LYMPH NODES: There is no intrapelvic nor inguinal adenopathy. REPRODUCTIVE: Ovaries upper normal size. Nabothian cysts at the upper cervix versus small fibroid. URINARY BLADDER: No calculi nor obvious masses evident cyst there densities which probably reflect the presence of a pelvic sling. OSSEOUS: No significant osseous lesions. IMPRESSION: 1. Gallbladder surgically absent. Biliary tree is not dilated. 2. Sigmoid diverticuli but no evidence of obvious acute diverticulitis. 3. Densities in the uterus with may be fibroids. Recommend follow-up ultrasound. Bilateral ovaries upper normal size. 4. Multiple small densities are seen in the lower pelvis which are either phleboliths or possibly related to a mesh. There are no abnormal fluid collections. Findings called by myself to the ER physician. Lab Data Lab results reviewed: Yes I reviewed the patient's lab results. Labs: Laboratory Tests Range/Units 08/06/20 08/06/20 08/06/20 13:17 13:30 13:30 WBC (4.4-10.8) 10^3/uL 16.55 H RBC (3.93-5.22) 10^6/uL 4.79 Hgb (11.2-15.7) g/dL 14.4 Hct (36.0-46.0) % 43.2 MCV (80-95) fL 90.2 MCH (27.0-33.0) pg 30.1 MCHC (32.0-36.0) % 33.3 RDW (11.7-14.6) % 13.4 Plt Count (130-400) 10^3/uL 376 MPV (8.0-11.0) fL 10.1 Immature Gran % 0.3 Neutrophils % 76.4 Lymphocytes % 17.0 Monocytes % 5.6 Eosinophils % 0.5 Basophils % 0.2 Nucleated RBC % % 0 Absolute Neutrophils (1.2-6.7) 10^3/uL 12.64 H Absolute Lymphocytes (1.2-3.4) 10^3/uL 2.81 Absolute Monocytes (0.1-0.8) 10^3/uL 0.93 H Absolute Eosinophils (0.0-0.7) 10^3/uL 0.08 Absolute Basophils (0.0-0.2) 10^3/uL 0.03 Sodium (136-145) mmol/L 140 Potassium (3.5-5.1) mmol/L 3.7 Chloride (98-107) mmol/L 104 Carbon Dioxide (21.0-32.0) mmol/L 26.9 Anion Gap (3-11) mmol/L 9.1 BUN (7-18) mg/dL 3 L Creatinine (0.55-1.02) mg/dL 0.6 Estimated GFR/1.73 m2 (mL/min/1.73m2) >= 60.00 Glucose (74-106) mg/dL 108 H Calcium (8.5-10.1) mg/dL 9.0 Total Bilirubin (0.2-1.0) mg/dL 0.3 AST (15-37) U/L 24 ALT (14-59) U/L 35 Alkaline Phosphatase (46-116) U/L 108 Total Protein (6.4-8.2) g/dL 7.7 Albumin (3.4-5.0) g/dL 3.9 Lipase (73-393) U/L 119 Urine Color (Yellow) Yellow Urine Clarity (Clear) Clear Urine pH (5-8) 6.5 Ur Specific Harlan (1.005-1.025) 1.020 Urine Protein (Negative) mg/dL Negative Urine Ketones (Negative) mg/dL Negative Urine Blood (Negative) Negative Urine Nitrite (Negative) Negative Urine Bilirubin (Negative) Negative Urine Urobilinogen (Up TO 0.2) EU/dL 0.2 Ur Leukocyte Esterase (Negative) Negative Urine Glucose (Negative) mg/dL Negative HPI General Mode of arrival: ambulatory. Date/Time Provider Initiated Documentation: 08/06/20 12:40. Limitations to Documentation: no limitations. Information obtained by: patient. HPI Narrative: Patient is a 44-year-old female with a history of gastritis and diverticulosis who presents to the ED with complaint of left-sided abdominal pain and nausea for the past 2 weeks. Patient states her abdominal pain has been intermittent, left-sided and crampy but is more constant today. She states she saw her primary care doctor's office a few days ago for the pain and was started on Cipro and Flagyl for possible diverticulitis. Patient states she chronically has diarrhea but states she has had more loose stools and it is dark green for the past few days. She denies any known fever, vomiting, urinary symptoms, rectal bleeding, recent travel. Related Data Home Medications Medication Instructions Recorded Confirmed acetaminophen [Tylenol] 650 mg PO Q4H PRN PRN #30 tab 06/16/19 08/06/20 albuterol sulfate 90 mcg/actuation 1 puff INHALATION Q4H PRN #3 10/15/19 08/06/20 aerosol inhaler inhaler fluticasone propionate 110 2 puff INHALATION BID #3 canister 10/15/19 08/06/20 mcg/actuation HFA aerosol inhaler Saccharomyces boulardii 250 mg 250 mg PO BID #60 cap 01/02/20 08/06/20 capsule ondansetron 4 mg PO Q6H PRN #14 tab 02/15/20 08/06/20 amitriptyline 10 mg tablet 10 mg PO QHS #30 tab 02/26/20 08/06/20 triamcinolone acetonide 0.5 % 1 applic TOPICAL BID #45 g 02/26/20 08/06/20 topical cream omeprazole 40 mg capsule,delayed 40 mg PO DAILY #90 tab-cap 07/30/20 08/06/20 release promethazine 25 mg tablet 25 mg PO TID PRN #10 tab 07/30/20 08/06/20 ciprofloxacin HCl 500 mg tablet 500 mg PO Q12H #14 tab 07/31/20 08/06/20 metronidazole 500 mg tablet 500 mg PO Q8H #21 tab 07/31/20 08/06/20 Previous Rx's Medication Instructions Recorded acetaminophen [Tylenol] 650 mg PO Q4H PRN PRN #30 tab 06/16/19 albuterol sulfate 90 mcg/actuation 1 puff INHALATION Q4H PRN #3 10/15/19 aerosol inhaler inhaler fluticasone propionate 110 2 puff INHALATION BID #3 canister 10/15/19 mcg/actuation HFA aerosol inhaler Saccharomyces boulardii 250 mg 250 mg PO BID #60 cap 01/02/20 capsule ondansetron 4 mg PO Q6H PRN #14 tab 02/15/20 amitriptyline 10 mg tablet 10 mg PO QHS #30 tab 02/26/20 triamcinolone acetonide 0.5 % 1 applic TOPICAL BID #45 g 02/26/20 topical cream omeprazole 40 mg capsule,delayed 40 mg PO DAILY #90 tab-cap 07/30/20 release promethazine 25 mg tablet 25 mg PO TID PRN #10 tab 07/30/20 ciprofloxacin HCl 500 mg tablet 500 mg PO Q12H #14 tab 07/31/20 metronidazole 500 mg tablet 500 mg PO Q8H #21 tab 07/31/20 Allergies Allergy/AdvReac Type Severity Reaction Status Date / Time hydrocodone AdvReac Severe Restlessnes Verified 08/06/20 12:46 s nicotine AdvReac Severe Caused Verified 08/06/20 12:46 pain down extremity amoxicillin AdvReac thrush Verified 08/06/20 12:46 bupropion [From Wellbutrin] AdvReac jitters Verified 08/06/20 12:46 tramadol AdvReac restlessnes Verified 08/06/20 12:46 s General Stated Complaint: Abd Prob ROSI: 3 Review of Systems All systems reviewed & are unremarkable except as noted in HPI and below Constitutional Constitutional: Reports as per HPI, Denies chills and Denies fever(s) Eyes Eyes: Denies blurry vision ENT Ears, Nose, Mouth, and Throat: Denies dizziness, Denies sore throat and Denies throat swelling Cardiovascular Cardiovascular: Denies chest pain and Denies dyspnea Respiratory Respiratory: Denies cough and Denies dyspnea Gastrointestinal Gastrointestinal: Reports abdominal pain, Reports diarrhea, Reports nausea and Denies vomiting Genitourinary Genitourinary: Denies hematuria and Denies dysuria Musculoskeletal Musculoskeletal: Denies back pain and Denies numbness Integumentary/Breasts Skin/Breast: Denies lesions and Denies rash Neurologic Neurologic: Denies dizziness, Denies localized weakness and Denies numbness Allergic/Immunologic Allergic/Immunologic: Denies throat swelling [facility] Medical History (Updated 08/06/20 @ 15:43 by Hazel Acevedo DO) Diverticulitis Gastritis Surgical History Cholecystectomy 2008-Dr. Garcia Colonoscopy - IV Sedation 2009-Dr. Sloan Colonoscopy - MAC (09/01/16) EGD - IV Sedation 2009-Dr. Sloan EGD - MAC (09/01/16) Ligation of fallopian tube Family History (Updated 08/04/20 @ 09:20 by Melissa Crane) Mother , 69 Essential hypertension Heart disease Hyperlipidemia Myocardial infarction AFTER SURGERY AND BLEEDING W/ BLOOD CLOT TO THE HEART. Father Alcohol abuse Personal history of malignant neoplasm THROAT/LIVER/LUNG Brother Alcohol abuse Personal history of malignant neoplasm LIVER Grandfather Personal history of malignant neoplasm Heart disease Grandmother Essential hypertension Stroke Grandmother Personal history of malignant neoplasm Social History (Updated 08/04/20 @ 09:20 by Melissa Crane) Smoking/Tobacco Use Status: Current every day Tobacco Type: cigarettes Smoking packs per day: 0.5 Smoking cigarettes per day: 10.0 Tobacco: How many years used: 24 Quit status: considering quitting Smoking risk assessment performed?: Yes Alcohol Intake: never Drug use: Rarely Substance use type: marijuana Caregiver/Support person: No Household members: spouse Housing: house Communication Needs: None Do you need help understanding health information?: Never Pets and animals: Yes Pets and animals: cat(s), dog(s) and farm animals Sexually active: Yes Do you think of yourself as: straight/heterosexual Current gender identity: decline to answer What is your relationship status?: How often do you talk on the phone with friends or family?: never How often do you get together with friends or relatives?: decline to answer How often do you attend druze or taoist services?: decline to answer Do you belong to any clubs or organized social groups?: no Panel score (0-1 are the most socially isolated patients): 1 What type of physical activity do you participate in: none Renetta/Anglican: None Seatbelt use: always Helmet use: Yes Drive 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 Do you feel safe at home: Yes Do you feel safe in your relationship?: Yes Exam Const General: cooperative, healthy appearing and no acute distress HENMT Head: normal to inspection Face and sinus: normal facial exam Eyes General: appearance normal, both eyes and all related structures EOM: EOM intact bilaterally Neck Neck: normal visual inspection and No submandibular swelling Lymphatic: no lymphadenopathy noted Chest Chest: normal inspection of the chest and no tenderness Resp Effort & Inspection: normal respiratory effort and able to speak in complete sentences Auscultation: clear to auscultation bilaterally Cardio Rate: regular rate Rhythm: regular rhythm GI Inspection: normal to inspection Palpation: soft, not firm, not rigid and tender in the LLQ and in the LUQ Auscultation: normal bowel sounds Skin General skin exam: no rashes or lesions noted Neuro General: patient alert, patient awake and patient oriented x3 Cognition: normal cognition Speech: speech normal Motor: muscle tone normal throughout Sensory Exam: no sensory deficits noted Extrem General: normal to inspection, full ROM, capillary refill normal, no calf tenderness bilaterally and no edema Psych Appearance: grossly normal Mental Status: mental status grossly normal Speech and Movement: speech and movement normal Affect: normal affect Course Vital Signs Vital signs: Vital Signs Temperature 97.7 F 08/06/20 12:41 Pulse 82 08/06/20 12:41 Respiratory Rate 16 08/06/20 12:41 Blood Pressure 127/86 08/06/20 12:41 Pulse Oximetry 98 08/06/20 12:41 Temperature 97.7 F 08/06/20 12:41 Temperature Source Skin 08/06/20 12:41 Pulse 82 08/06/20 12:41 Respiratory Rate 16 08/06/20 12:41 Blood Pressure 127/86 08/06/20 12:41 Blood Pressure Position Sitting 08/06/20 12:41 Pulse Oximetry 98 08/06/20 12:41 Oxygen Delivery Method Room Air 08/06/20 12:41 Oxygen Flow Rate 0 08/06/20 12:41 Pain Level 6 08/06/20 12:41
--- NOTE | 2020-08-06 13:15 | DI.CT_ITS ---
EXAM: CT ABDOMEN PELVIS W CLINICAL HISTORY: nausea, L sided abd pain, r/o diverticulitis. TECHNIQUE: Imaging Protocol: Axial computed tomography images with coronal and sagittal reformatted images were created and reviewed CONTRAST MATERIAL: Intravenous: Omnipaque 100cc Oral: None COMPARISON: CT CT ABDOMEN PELVIS W from 02/15/2020 FINDINGS: VISUALIZED LUNG BASES: No nodules nor pleural effusions evident. ABDOMEN: There is no ascites. LIVER: There are no obvious focal hepatic lesions evident . GALLBLADDER/BILIARY: Gallbladder is again noted be surgically absent. CBD is not dilated. PANCREAS: No evidence of pancreatic mass nor dilatation of the pancreatic duct. SPLEEN: Spleen is not enlarged. No obvious intrasplenic lesions. Splenic and portal veins are paten t. ADRENALS: There are no significant adrenal masses. KIDNEYS:No cysts evident. No solid renal masses. No calculi nor hydronephrosis.. ABDOMINAL AORTA: Calcified but not enlarged. LYMPH NODES:There is no retroperitineal nor paraaortic adenopathy. ABDOMINAL WALL/GI: No evidence of significant anterior abdominal wall hernia. No bowel obstruction. PELVIS: GI: Appendix is not well seen but there is no obvious secondary signs of appendicitis.There are sigmo id diverticuli noted. No evidence of obvious acute diverticulitis. No free fluid. LYMPH NODES: There is no intrapelvic nor inguinal adenopathy. REPRODUCTIVE: Ovaries upper normal size. Nabothian cysts at the upper cervix versus small fibroid. URINARY BLADDER: No calculi nor obvious masses evident cyst there densities which probably reflect th e presence of a pelvic sling. OSSEOUS: No significant osseous lesions. IMPRESSION: 1. Gallbladder surgically absent. Biliary tree is not dilated. 2. Sigmoid diverticuli but no evidence of obvious acute diverticulitis. 3. Densities in the uterus with may be fibroids. Recommend follow-up ultrasound. Bilateral ovaries upper normal size. 4. Multiple small densities are seen in the lower pelvis which are either phleboliths or possibly rel ated to a mesh. There are no abnormal fluid collections. Findings called by myself to the ER physician. RADIATION DOSE DELIVERED: 822.63mGy.cm Total DLP DATA REPOSITORY: All CT scans at this facility are submitted to the National Radiology Data Registry (NRDR) Dose Index Registry (DIR) with the [employer] (ACR). RADIATION OPTIMIZATION: All CT scans at this facility use at least one of these dose optimization te chniques: automated exposure control; mA and/or kV adjustment per patient size (includes targeted exa ms where dose is matched to clinical indication); or iterative reconstruction.
[2020-08-06 13:24] LABS: Bilirubin Negative (Negative); Blood Negative (Negative); Clarity Clear (Clear); Glucose Negative (Negative); Ketones Negative (Negative); Leukocyte Esterase Negative (Negative); Nitrite Negative (Negative); Urobilinogen 0.2 EU/dL (Up TO 0.2); pH 6.5 (5-8)
[2020-08-06] MEDS: Normal Saline Flush 10 ML SYR IVP (13:30)
[2020-08-06] MEDS: Normal Saline 1,000 ML 1000 ML IV (13:35)
[2020-08-06 13:37] LABS: Abs Immature Grans 0.05 10^3/uL (0.0-0.06); Absolute Eosinophil Count 0.08 10^3/uL (0.0-0.7); Absolute Lymphocyte Count 2.81 10^3/uL (1.2-3.4); Absolute Monocyte Count 0.93 10^3/uL (0.1-0.8); Absolute Neutrophil Count 12.64 10^3/uL (1.2-6.7); Basophils % 0.2; Eosinophils % 0.5; HCT 43.2 % (36.0-46.0); HGB 14.4 g/dL (11.2-15.7); Immature Grans % 0.3; MCH 30.1 pg (27.0-33.0); MCHC 33.3 % (32.0-36.0); MCV 90.2 fL (80-95); MPV 10.1 fL (8.0-11.0); Monocytes % 5.6; Neutrophils % 76.4; Nucleated RBC 0 %; Platelet Count 376 10^3/uL (130-400); RBC 4.79 10^6/uL (3.93-5.22); RDW 13.4 % (11.7-14.6); RDW-SD 44.9 fL; WBC 16.55 10^3/uL (4.4-10.8)
[2020-08-06 13:38] LABS: Absolute Basophil Count 0.03 10^3/uL (0.0-0.2)
[2020-08-06 13:48] LABS: ALT 35 U/L (14-59); AST 24 U/L (15-37); Albumin 3.9 g/dL (3.4-5.0); Alkaline Phosphatase 108 U/L (46-116); Anion Gap 9.1 mmol/L (3-11); BUN 3 mg/dL (7-18); Bilirubin, Total 0.3 mg/dL (0.2-1.0); CO2 26.9 mmol/L (21.0-32.0); CREATININE 0.6 mg/dL (0.55-1.02); Chloride 104 mmol/L (98-107); Glucose 108 mg/dL (74-106); Lipase 119 U/L (73-393); Potassium 3.7 mmol/L (3.5-5.1); Sodium 140 mmol/L (136-145); Total Protein 7.7 g/dL (6.4-8.2)
[2020-08-06] MEDS: Omnipaque 350 MG/ML 100 ML BTL IJ (14:02)
[2020-08-06] MEDS: Normal Saline - Diluent 50 ML VIAL IV (14:03)
[2020-08-06] MEDS: Sucralfate 1 GM TAB PO (14:19)
[2020-08-06] MEDS: Ketorolac 30 MG/ML VIAL IVP (14:20)
[2020-08-06] MEDS: FAMOTIDINE 20 MG/50 ML BAG 200 MG IVPB (14:22)
[2020-08-06 15:55] VITALS: BP 115/91; PULSE 75; RESP 16; TEMP 36.7; O2SAT 98
== END 2020-08-06 15:57 | disposition home or self-care (01) ==
PROVIDERS: Emergency Provider Physician Assistant; PCP Family Medicine
DX: R19.7 Diarrhea, unspecified (principal); R11.0 Nausea; R10.32 Left lower quadrant pain; D25.9 Leiomyoma of uterus, unspecified
CPT/HCPCS: 36415; 80053; 81025; 83690; 96361; 96365; 96375; 99285; 74177; 81003; 85025; J1885; J3490

== ENCOUNTER 2020-08-08 12:19 | Outpatient (REF) | payer MEDICAID, SELFPAY ==
[2020-08-08 14:40] LABS: C Diff PCR Negative (Negative)
[2020-08-09 15:18] LABS: Campylobacter PCR Negative (Negative); Salmonella PCR Negative (Negative); Shiga Toxin PCR Negative (Negative); Shigella/Enteroinvasive Ecoli Negative (Negative)
== END 2020-08-08 12:20 | disposition home or self-care (01) ==
LOC: LBN 12:19
PROVIDERS: Physician Assistant; PCP Family Medicine; Visit Provider Nurse Practitioner Family
DX: R19.7 Diarrhea, unspecified (principal); B37.3 Candidiasis of vulva and vagina
CPT/HCPCS: 87493; 87505; 87177; 87480; 87510; 87660

== ENCOUNTER 2020-08-18 04:18 | Outpatient (CLI) | payer MEDICAID, SELFPAY ==
[2020-08-18 15:21] LABS: TSH (W/Ref FT4) 0.83 uIU/mL (0.36-3.74)
[2020-08-18 22:05] LABS: Prolactin 7.5 ng/mL (See Table)
== END 2020-08-18 04:19 | disposition home or self-care (01) ==
LOC: LBO 04:18
PROVIDERS: PCP Family Medicine; Visit Provider Obstetrics & Gynecology
DX: N92.5 Other specified irregular menstruation (principal); N93.8 Other specified abnormal uterine and vaginal bleeding
CPT/HCPCS: 36415; 84146; 84443

== ENCOUNTER 2020-08-26 01:39 | Outpatient (CLI) | payer MEDICAID, SELFPAY ==
--- NOTE | 2020-08-26 07:30 | DI.US_ITS ---
EXAM: US PELVIS TRANSVAGINAL CLINICAL HISTORY: uterine fibroid vs phleboliths,abd pain,r10.9 TECHNIQUE: Ultrasound performed using standard protocol. COMPARISON: US LEFT BREAST ULTRASOUND from 07/14/2016 FINDINGS: Pelvic ultrasound was performed transabdominally and transvaginally. Uterus measures 9.5 x 4.7 x 5.7 cm. Endometrial stripe is about 7 millimeters in thickness and appears homogeneous. There is an apparent 12 x 12 x 11 millimeter in diameter mid body uterine fibroid. Otherwise myometr ium is unremarkable in appearance. The ovaries have a normal follicular appearance. Right ovary measures 32 x 17 x 20 millimeters, left ovary measures 36 x 19 x 21 millimeters. No free fluid identified in the cul-de-sac. Limited scanning of the kidneys is unremarkable. IMPRESSION: Small uterine fibroid. Otherwise unremarkable scan. DATA REPOSITORY:
== END 2020-08-26 01:59 ==
PROVIDERS: PCP Family Medicine; Visit Provider Nurse Practitioner Family
DX: R10.9 Unspecified abdominal pain (principal); D25.9 Leiomyoma of uterus, unspecified
CPT/HCPCS: 76830; 76856

== ENCOUNTER 2020-09-02 15:03 | Outpatient (REF) | payer MEDICAID, SELFPAY ==
--- NOTE | 2020-09-02 13:50 | PAPFT_PTH ---
PATIENT: Eli Garcia LOC: [facility] U#:[id number] AGE/SX: 44/F ROOM: RE09/02/[address]: Cherry Pittman DO : 1975 BED: DIS: 09/02/2020 SPEC #: [id number] RECD: 09/02/20 18:03 STATUS: GINGER REQ #: [id number] DIANA: 09/02/20 13:[address]: Cherry Pittman DEPT: [facility] Cytology RECD BY: Lorie Galan ENTERED: 09/02/20 18:03 SP TYPE: PAPFT OTHR DR: Manuel Sanchez MD Tissues: 1 - CX/ENDOCX FOR PAP SMEARS Procedures: PAP THIN PREP/UVM Screening HPV DNA PROBE Comments: [id number]
== END 2020-09-02 15:04 | disposition home or self-care (01) ==
LOC: LBN 15:03
PROVIDERS: PCP Family Medicine; Visit Provider Obstetrics & Gynecology
DX: Z12.4 Encounter for screening for malignant neoplasm of cervix (principal); Z11.51 Encounter for screening for human papillomavirus (HPV)
CPT/HCPCS: 88142; 87624

== ENCOUNTER 2020-09-19 04:31 | Outpatient (CLI) | payer MEDICAID, SELFPAY ==
--- NOTE | 2020-09-19 06:45 | DI.MAMMO_ITS ---
Exam(s) MAMMO SCREENING EXAM: MAMMO SCREENING CLINICAL HISTORY: screening,Z12.39 TECHNIQUE: Mammograms were interpreted according to the usual protocol including computer analysis w [employer] CAD system, tomosynthesis and C-view imaging. COMPARISON: 2017 FINDINGS: The breasts are composed of scattered fibroglandular densities, Breast Density category B. No suspicious masses or suspicious microcalcifications are seen. No skin thickening or abnormal axillary lymph nodes are seen. There has been no significant change from prior exams. IMPRESSION: BI-RADS Category 1, Negative mammogram Yearly screening mammography is recommended. Breast Density - Category B, scattered fibroglandular densities. A negative radiographic report should not delay biopsy if a dominant or clinically suspicious mass is present. Up to ten percent of cancers are not identified on mammography. A negative report may reinforce clinical impression. Adenosis and dense breasts may obscure an underlying neoplasm. False positive reports average 6 to 10%. Patient will receive a letter notifying them of these results.
== END 2020-09-19 04:51 ==
PROVIDERS: PCP Family Medicine; Visit Provider Obstetrics & Gynecology
DX: Z12.31 Encounter for screening mammogram for malignant neoplasm of breast (principal)
CPT/HCPCS: 77063; 77067

== ENCOUNTER 2020-12-18 10:25 | Outpatient (CLI) | payer MEDICAID, SELFPAY ==
[2020-12-18 13:15] LABS: HGB 13.6 g/dL (11.2-15.7); MCH 29.4 pg (27.0-33.0); MCHC 33.2 % (32.0-36.0); MCV 88.6 fL (80-95); MPV 10.4 fL (8.0-11.0); Platelet Count 386 10^3/uL (130-400); RBC 4.63 10^6/uL (3.93-5.22); RDW 14.4 % (11.7-14.6); RDW-SD 46.5 fL; WBC 12.03 10^3/uL (4.4-10.8)
[2020-12-18 14:27] LABS: ALT 24 U/L (14-59); AST 17 U/L (15-37); Albumin 3.9 g/dL (3.4-5.0); Alkaline Phosphatase 123 U/L (46-116); Anion Gap 9.3 mmol/L (3-11); BUN 5 mg/dL (7-18); Bilirubin, Total 0.3 mg/dL (0.2-1.0); C-Reactive Protein 0.11 mg/dL (0.0-0.3); CO2 25.7 mmol/L (21.0-32.0); CREATININE 0.7 mg/dL (0.55-1.02); Calcium 9.3 mg/dL (8.5-10.1); Chloride 105 mmol/L (98-107); Glucose 106 mg/dL (74-106); Potassium 4.1 mmol/L (3.5-5.1); Sodium 140 mmol/L (136-145); Total Protein 7.1 g/dL (6.4-8.2)
[2020-12-18 14:30] LABS: Iron 32 ug/dL (50-170); Total Iron Binding Capacity 415 ug/dL (250-450); Transferrin Sat 8 % (15-50)
== END 2020-12-18 10:26 | disposition home or self-care (01) ==
LOC: LBO 10:28
PROVIDERS: PCP Family Medicine; Visit Provider Emergency Medicine
DX: G89.29 Other chronic pain (principal); M25.551 Pain in right hip; G47.09 Other insomnia; M79.604 Pain in right leg; M79.605 Pain in left leg
CPT/HCPCS: 36415; 80053; 85027; 83540; 83550; 86140

== ENCOUNTER 2020-12-18 15:27 | Outpatient (CLI) | payer MEDICAID, SELFPAY ==
--- NOTE | 2020-12-18 13:34 | DI.RAD_ITS ---
Exam(s) XR HIP RT COMPLETE AP PELVIS EXAM: XR HIP RT COMPLETE AP PELVIS CLINICAL HISTORY: right hip pain,m25.559. TECHNIQUE: 2D digital imaging was performed. COMPARISON: CR LUMBAR SPINE COMPLETE from 04/01/2015 FINDINGS: BONES: No acute fracture is present. No bony destructive lesion is seen. JOINTS: No dislocation present. Mild subchondral sclerosis and periarticular spurring is seen at the hips bilaterally. The sacroiliac joints and symphysis pubis are unremarkable. SOFT TISSUE: Chondrocalcinosis is seen adjacent to the right greater trochanter. IMPRESSION: Mild degenerative changes of the hips bilaterally. DATA REPOSITORY: RADIATION DOSE DELIVERED:
== END 2020-12-18 15:47 ==
PROVIDERS: PCP Family Medicine; Visit Provider Emergency Medicine
DX: M16.0 Bilateral primary osteoarthritis of hip (principal)
CPT/HCPCS: 73502

== ENCOUNTER 2021-01-22 03:20 | Outpatient (CLI) | payer MEDICAID, SELFPAY ==
[2021-01-22] MEDS: Albuterol HFA 18 GM 200 PUFF INH IH (11:13)
[2021-01-22] MEDS: Inhaler, Assist Device 1 EACH MC (11:14)
--- NOTE | 2021-01-23 07:32 | W.PFT ---
Date of service: 01/22/21 Time of Service: 10:04 Pulmonary Function Test Result Requesting Provider Iraida Kumar Indications: FREDERICK Interpretation Spirometry: There is moderate airflow obstruction. There is a significant bronchodilator effect. Lung Volumes: There is air trapping. Diffusion Capacity: The diffusion is reduced. Airway Pressure: Airways resistance is increased. Impression Moderate airflow obstruction with a bronchodilator response, evidence of air trapping with a reduced diffusion and increased airways resistance. Note: When compared to 08/18/2010 the FVC and FEV1 have decreased. There is still a significant bronchodilator effect. Clinical Correlation therefore is recommended.
== END 2021-01-22 03:21 | disposition home or self-care (01) ==
LOC: RT 03:20
PROVIDERS: PCP Family Medicine; Visit Provider Family Medicine
DX: R06.09 Other forms of dyspnea (principal); R94.2 Abnormal results of pulmonary function studies; J44.9 Chronic obstructive pulmonary disease, unspecified
CPT/HCPCS: 94060; 94726; 94729

== ENCOUNTER 2021-08-16 23:15 | Emergency (ER) | payer MEDICAID, SELFPAY ==
[2021-08-16 23:20] VITALS: BP 127/92; PULSE 90; RESP 16; TEMP 36.4; O2SAT 97
[2021-08-16] MEDS: Normal Saline 1,000 ML 1000 ML IV (23:40)
[2021-08-17] MEDS: MORPHine 4 MG/ML SYR IVP (00:11)
[2021-08-17] MEDS: Ondansetron 4 MG/2 ML VIAL IVP ×2 (00:11→03:25)
--- NOTE | 2021-08-17 00:15 | ED.GENADUL_ITS ---
Discharge Plan Disposition Patient Disposition: HOME Condition: Good Discharge Details Clinical Impression: Nausea & vomiting, Acute dehydration, Ovarian cyst rupture Primary Care Provider: Iraida Kumar ED Provider: Austin Calles Home Meds and New Rx's Prescriptions: New amoxicillin-pot clavulanate 875-125 mg tablet 1 tab PO BID Qty: 14 0RF ondansetron 4 mg film 4 mg PO Q8H Qty: 30 0RF Continued triamcinolone acetonide 0.5 % cream 1 applic topical BID Qty: 45 2RF ferrous sulfate [FeroSul] 325 mg (65 mg iron) tablet 325 mg PO DAILY Qty: 30 3RF albuterol sulfate [ProAir HFA] 90 mcg/actuation HFA aerosol inhaler 1 puff Inhalation Q4H PRN Qty: 3 1RF duloxetine 30 mg capsule,delayed release(DR/EC) 30 mg PO DAILY Qty: 90 3RF Flovent HFA 110 mcg/actuation HFA aerosol inhaler 2 puff Inhalation BID Qty: 3 3RF Spiriva Respimat 1.25 mcg/actuation mist 2 puff inhalation Q24H Qty: 12 3RF Saccharomyces boulardii [Probiotic (S.boulardii)] 250 mg capsule 250 mg PO BID Qty: 60 0RF Rx Instructions: swallow whole omeprazole 40 mg capsule,delayed release(DR/EC) 40 mg PO DAILY Qty: 90 3RF Rx Instructions: take 1 tab daily zolpidem 5 mg tablet 5 mg PO QHS PRN0RF acetaminophen [Tylenol] 325 mg Tablet 650 mg PO Q4H PRN PRNQty: 30 0RF ondansetron 4 mg tablet,disintegrating 4 mg PO Q6H PRN (Reason: nausea and vomiting) Qty: 14 0RF Discharge Instructions Instructions: Ovarian Cyst (ED), Acute Nausea and Vomiting (ED) Additional Instructions: At this time you have evidence of a small ruptured ovarian cyst, uterine fibroid, and what appears to be mild irritation of your colon. You were notably dehydrated as well. The nausea and vomiting may have been brought on a mild virus, or these other etiologies that were noted. You have been rehydrated here with a significant amount of fluids. Please stick with a mild liquid diet for the next 48 to 72 hours. Avoid anything fatty, greasy, or tomato-based. Gradually advance her diet after that. In regards to the potential for mild colitis, you have been given a prescription for an antibiotic. If your symptoms persist please take this as directed. Please take the Zofran as needed for nausea. If you notice any worsening of your symptoms, or any new symptoms such as vomiting, diarrhea, fever, chills, shortness of breath, chest pain, numbness, weakness, or fainting , please return immediately to the emergency department for reevaluation. Please follow up with your primary care provider as soon as possible for reassessment and reevaluation. As always, it was a pleasure participating in your medical care today. Referrals: Iraida Kumar MD [Primary Care Provider] - Medical Decision Making 45-year-old female with a past medical history of COPD, previous diverticulitis, high cholesterol, bilateral salpingo-oophorectomy, and previous cholecystectomy, presents today for evaluation of abdominal pain. Patient states that starting yesterday she had crampy constant abdominal pain with associated vomiting and watery diarrhea. She denies any blood in her stool or vomit. She denies any other sick contacts. Pain is located also in the epigastric region. She denies any recent alcohol use. No vaginal discharge. No urinary complaints. No fever or chills. No other complaints at this time. She is not been eating any significant food secondary to the pain and vomiting. Physical exam demonstrates tenderness in the epigastric and lower abdominal quadrants, notably dry mucous membranes. Differential includes diverticulitis, pancreatitis enteritis, with associated dehydration from vomiting. We will rehydrate, treat the patient's pain, get a CT scan to evaluate for diverticulitis, monitor closely and reassess. 3:30 AM Laboratory work-up is returned, vital signs remained stable. Patient does have an elevated white count of 21, electrolytes normal, anion gap slightly increased at 16. Urinalysis unremarkable. Review of patient's prior labs demonstrate that she has had notable leukocytosis past when she has had episodes of vomiting like this. In fact 1 year ago she actually had near identical symptoms with mild colitis and/or mild diverticulitis, which required 3 repeat visits to the emergency department. Eventually after rehydration and Zofran her symptoms resolved on their own. Patient CT scan today shows evidence of ruptured ovarian cyst, uterine fibroid present, questionable mild colonic wall thickening suspicious for mild colitis versus contracted status. It is slightly challenging to determine what is the exact cause and etiology of her symptoms. However there may be certainly a viral component of began the vomiting, which led to potential mild colitis. Alternatively this might just be a normal finding, and her leukocytosis is secondary to dehydration, and reactivity from her vomiting and ruptured ovarian cyst. Regardless on reassessment the patient is feeling much better. Repeat abdominal exam shows no signs of an acute surgical abdomen, no significant abdominal tenderness. She does have some mild left upper quadrant achiness still. She has been able to tolerate p.o. well here after antiemetics and rehydration. She actually feels much better. We had a long discussion about continued observation versus discharge, and at this time patient has elected to go home. She feels well, and she and her both feel comfortable with this. Patient will be discharged home with Maday to go. We will give her prescription for Augmentin to take if her symptoms persist over the next 4 hours as she may in fact have very mild colitis still. Discussed red flags which to return. I have extensively reviewed the treatment plan and discharge instructions with the patient and their family. I have addressed all patient concerns at this time. The patient and family was made aware of what symptoms to monitor for that would warrant a return to the emergency department. Discussed the plan with the patient and family, they demonstrate verbal understanding and agreement with our assessment and plan at this time. The documentation in this chart was dictated using [employer] dictation software. Pl ease excuse any dictation errors. FINDINGS: Lungs: Visualized lung bases are clear. Heart: Heart size normal. Diaphragm: Small hiatal hernia. Liver: Normal contour. No mass lesions. No intrahepatic biliary ductal dilatation. Gallbladder and bile ducts: Prior cholecystectomy with expected mild postoperative dilatation of the common bile duct. This is unchanged. Pancreas: Normal. No inflammatory changes or ductal dilation. Spleen: 9 mm bilocular cyst in the anterior superior spleen is unchanged and does not require further assessment. Adrenal glands: Normal. No adrenal mass. Kidneys and ureters: No acute abnormalities. No hydronephrosis or hydroureter. No urinary tract stones are identified. Stomach and bowel: The small bowel is nondilated with no gross abnormality. The colon is largely contracted which likely contributes to the mildly thick walled appearance. This makes it difficult to exclude mild colitis. No evidence of perforation or abscess. Mild diverticulosis involving the distal colon without evidence of acute diverticulitis. Appendix: The appendix is normal in caliber and demonstrates no evidence of appendicitis. Intraperitoneal space: Small amount of intrapelvic free fluid, within physiologic range for a young woman. No free air. Arteries: Vasculature: Moderate atherosclerotic aortoiliac calcification without aneurysm. Lymph nodes: No adenopathy. Urinary bladder: The urinary bladder is largely contracted without gross abnormality. Reproductive: 19 mm enhancing focus in the anterior myometrium of the mid uterine segment is suggestive of an intramural fibroid. 10 mm cyst in the rightward cervix consistent with a nabothian cyst. These are unchanged. There is a 1.5 cm partially collapsed appearing cyst with mild peripheral enhancement in the left ovary most consistent with a recently ruptured and involuting ovarian follicle. This is within physiologic range but may produce symptoms. The right ovary is unremarkable. Bones/joints: No acute osseous abnormalities. Soft tissues: Unremarkable. IMPRESSION: 1. Normal appendix. No evidence of bowel obstruction, perforation, or abscess. No urolithiasis or hydronephrosis. 2. Question mild generalized colonic wall thickening suspicious for colitis although this may relate to its largely contracted status. No evidence of perforation or abscess. 3. Small hiatal hernia. 4. Mild distal colonic diverticulosis without diverticulitis. 5. 1.5 cm partially collapsed and enhancing cystic focus in the left ovary is most consistent with a recently ruptured and involuting follicle. This is within physiologic range but might produce symptoms. 6. Small volume intrapelvic free fluid, within physiologic range. 7. Suspected 19 mm intramural fibroid in the anterior uterus and 10 mm nabothian cyst in the cervix. 8. Additional nonemergent findings detailed above. Thank you for allowing us to participate in the care of your patient. Dictated and Authenticated by: Isai Headley MD 08/17/2021 1:44 AM Eastern Time ([place] & [place]) HPI General Date/Time Provider Initiated Documentation: 08/16/21 23:19 . HPI Narrative: 45-year-old female with a past medical history of COPD, previous diverticulitis, high cholesterol, bilateral salpingo-oophorectomy, and previous cholecystectomy, presents today for evaluation of abdominal pain. Patient states that starting yesterday she had crampy constant abdominal pain with associated vomiting and watery diarrhea. She denies any blood in her stool or vomit. She denies any other sick contacts. Pain is located also in the epigastric region. She denies any recent alcohol use. No vaginal discharge. No urinary complaints. No fever or chills. No other complaints at this time. She is not been eating any significant food secondary to the pain and vomiting. Related Data Home Medications Medication Instructions Recorded Confirmed acetaminophen 325 mg tablet 650 mg PO Q4H PRN PRN #30 tab 06/16/19 08/16/21 (Tylenol) Saccharomyces boulardii 250 mg 250 mg PO BID #60 cap 01/02/20 08/16/21 capsule (Probiotic (S.boulardii)) ondansetron 4 mg disintegrating 4 mg PO Q6H PRN #14 tab 02/15/20 08/16/21 tablet triamcinolone acetonide 0.5 % 1 applic TOPICAL BID #45 g 02/26/20 08/16/21 topical cream omeprazole 40 mg capsule,delayed 40 mg PO DAILY #90 tab-cap 07/30/20 08/16/21 release ferrous sulfate 325 mg (65 mg 325 mg PO DAILY #30 tab 01/16/21 08/16/21 iron) tablet (FeroSul) zolpidem 5 mg tablet 5 mg PO QHS PRN 04/08/21 08/16/21 albuterol sulfate 90 mcg/actuation 1 puff INHALATION Q4H PRN #3 05/29/21 08/16/21 aerosol inhaler (ProAir HFA) inhaler duloxetine 30 mg capsule,delayed 30 mg PO DAILY #90 cap 05/29/21 08/16/21 release fluticasone propionate 110 2 puff INHALATION BID #3 canister 05/29/21 08/16/21 mcg/actuation HFA aerosol inhaler (Flovent HFA) tiotropium bromide 1.25 2 puff INHALATION Q24H #12 g 05/29/21 08/16/21 mcg/actuation mist for inhalation (Spiriva Respimat) amoxicillin 875 mg-potassium 1 tab PO BID #14 tab 08/17/21 clavulanate 125 mg tablet ondansetron 4 mg oral soluble film 4 mg PO Q8H #30 ea 08/17/21 Previous Rx's Medication Instructions Recorded acetaminophen 325 mg tablet 650 mg PO Q4H PRN PRN #30 tab 06/16/19 (Tylenol) Saccharomyces boulardii 250 mg 250 mg PO BID #60 cap 01/02/20 capsule (Probiotic (S.boulardii)) ondansetron 4 mg disintegrating 4 mg PO Q6H PRN #14 tab 02/15/20 tablet triamcinolone acetonide 0.5 % 1 applic TOPICAL BID #45 g 02/26/20 topical cream omeprazole 40 mg capsule,delayed 40 mg PO DAILY #90 tab-cap 07/30/20 release ferrous sulfate 325 mg (65 mg 325 mg PO DAILY #30 tab 01/16/21 iron) tablet (FeroSul) albuterol sulfate 90 mcg/actuation 1 puff INHALATION Q4H PRN #3 05/29/21 aerosol inhaler (ProAir HFA) inhaler duloxetine 30 mg capsule,delayed 30 mg PO DAILY #90 cap 05/29/21 release fluticasone propionate 110 2 puff INHALATION BID #3 canister 05/29/21 mcg/actuation HFA aerosol inhaler (Flovent HFA) tiotropium bromide 1.25 2 puff INHALATION Q24H #12 g 05/29/21 mcg/actuation mist for inhalation (Spiriva Respimat) amoxicillin 875 mg-potassium 1 tab PO BID #14 tab 08/17/21 clavulanate 125 mg tablet ondansetron 4 mg oral soluble film 4 mg PO Q8H #30 ea 08/17/21 Allergies Allergy/AdvReac Type Severity Reaction Status Date / Time hydrocodone AdvReac Severe Restlessnes Verified 08/16/21 23:26 s nicotine AdvReac Severe Caused Verified 08/16/21 23:26 pain down extremity amoxicillin AdvReac thrush Verified 08/16/21 23:26 bupropion [From Wellbutrin] AdvReac jitters Verified 08/16/21 23:26 gabapentin AdvReac sob Verified 08/16/21 23:26 tramadol AdvReac restlessnes Verified 08/16/21 23:26 s varenicline [From Chantix] AdvReac vomiting Verified 08/16/21 23:26 General Stated Complaint: Abd Prob ROSI: 3 Review of Systems All systems reviewed & are unremarkable except as noted in HPI and below PFSH All Active Problems Nausea & vomiting (Acute) Acute dehydration (Acute) Ovarian cyst rupture (Acute) Sacroiliac joint dysfunction of right side (Acute) Chronic pain (Acute) Migraine (Chronic 07/06/11) 2 headaches / month Chronic obstructive lung disease (Acute) Diarrhea (Chronic) chronic diarrhea Gastroesophageal reflux disease (Chronic) per EGD-01/16 DUB (dysfunctional uterine bleeding) (Chronic) Uterine fibroid (Acute) Abdominal pain (Acute 08/12/14) extensive workup at [facility] 2010- no specific cause Anxiety (Acute) Hyperlipidemia (Acute) Insomnia disorder (Chronic 05/01/15) Low back pain (Chronic 04/01/15) Restless legs syndrome (Acute 12/03/14) Smoker (Acute) Medical History Abnormal auditory perception of both ears (04/04/17) Acute gastritis REACTIVE GASTROPATHY 01/19/10- DR. ADAMS PER EGD 09/01/16 DR. 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 No specific etiology after workup at [facility] 2018. Myalgia Surgical History History of bilateral salpingo-oophorectomy Status post cholecystectomy Family History Mother , 69 Essential hypertension Heart disease Hyperlipidemia Myocardial infarction AFTER SURGERY AND BLEEDING W/ BLOOD CLOT TO THE HEART. Father Alcohol abuse Personal history of malignant neoplasm THROAT/LIVER/LUNG Brother Alcohol abuse Personal history of malignant neoplasm LIVER Grandfather Personal history of malignant neoplasm Heart disease Grandmother Essential hypertension Stroke Grandmother Personal history of malignant neoplasm Social History Smoking/Tobacco Use Status: Current every day Tobacco Type: cigarettes Smoking packs per day: 1 Smoking cigarettes per day: 20.0 Years smoked: 24 Smoking pack- years: 24.00 Tobacco: How many years used: 24 Quit status: considering quitting Counseling given: provider counseling Smoking risk assessment performed?: Yes Alcohol Intake: never Drug use: Rarely Substance use type: marijuana Caregiver/Support person: No Household members: spouse and children Housing: house Number of Children: 2 Communication Needs: None Do you need help understanding health information?: Never current occupation: works at home. Pets and animals: Yes Pets and animals: cat(s), dog(s) and farm animals Sexually active: Yes Do you think of yourself as: straight/heterosexual Current gender identity: decline to answer What is your relationship status?: How often do you talk on the phone with friends or family?: never How often do you get together with friends or relatives?: decline to answer How often do you attend judaism or baptism services?: decline to answer Do you belong to any clubs or organized social groups?: no Panel score (0-1 are the most socially isolated patients): 1 What type of physical activity do you participate in: none Duration: 15-30 minutes/day Frequency: 3-4 times per week Renetta/Advent: None Seatbelt use: always Helmet use: Yes Drive intox or ride w/intox class a regional truck driver: No Do you feel safe at home: Yes Do you feel safe in your relationship?: Yes Exam Narrative Exam Narrative: 1.Const: Well-nourished, Well-developed, appearing stated age 2.Eyes: PERRL, no conjunctival injection, and symmetrical lids. 3.ENT: Atraumatic external nose and ears. Notably dry MM. Neck: Symmetric, trachea midline, No thyromegaly. 4.CVS: +S1/S2, No murmurs or gallops. Peripheral pulses 2+ and equal in all ex tremities. Brisk capillary refill in all extremities. 5.RESP: Unlabored respiratory effort. Clear to auscultation bilaterally. No wheezes rales or rhonchi 6.GI: Soft, nondistended, no guarding. Generalized tenderness throughout, including in the epigastric, right lower quadrant and left lower quadrant regions. 7.MSK: Normocephalic/Atraumatic, Extremities w/o deformity or ttp No cyanosis or clubbing, Normal movement of all extremities 8.Skin: Warm, Dry. No rashes or lesions. 9.Neuro: consulting solution manager II-XII grossly intact. Sensation grossly intact, no focal neurologic deficits. 10.Psych: (AAO) x3. Appropriate mood and affect Course Vital Signs Vital signs: Vital Signs Temperature 36.4 C L 08/16/21 23:20 Pulse 90 08/16/21 23:20 Respiratory Rate 16 08/16/21 23:20 Blood Pressure 127/92 H 08/16/21 23:20 Pulse Oximetry 97 08/16/21 23:20 Temperature 36.4 C L 08/16/21 23:20 Temperature Source Skin 08/16/21 23:20 Pulse 90 08/16/21 23:20 Respiratory Rate 16 08/16/21 23:20 Respiratory Effort Non-Labored 08/16/21 23:28 Blood Pressure 127/92 H 08/16/21 23:20 Pulse Oximetry 97 08/16/21 23:20 Pain Level 8 08/16/21 23:20
[2021-08-17 00:16] LABS: Absolute Basophil Count 0.04 10^3/uL (0.0-0.2); Absolute Lymphocyte Count 0.72 10^3/uL (1.2-3.4); Absolute Monocyte Count 0.25 10^3/uL (0.1-0.8); Basophils % 0.2; HCT 45.9 % (36.0-46.0); HGB 14.9 g/dL (11.2-15.7); Immature Grans % 0.5; Lymphocytes % 3.4; MCH 29.6 pg (27.0-33.0); MCHC 32.5 % (32.0-36.0); MCV 91.1 fL (80-95); MPV 11.3 fL (8.0-11.0); Monocytes % 1.2; Neutrophils % 94.7; Nucleated RBC 0 %; Platelet Count 425 10^3/uL (130-400); RBC 5.04 10^6/uL (3.93-5.22); RDW 14.6 % (11.7-14.6); RDW-SD 49.1 fL; WBC 21.21 10^3/uL (4.4-10.8)
[2021-08-17 00:20] LABS: Absolute Neutrophil Count 20.09 10^3/uL (1.2-6.7)
[2021-08-17 00:27] LABS: ALT 22 U/L (14-59); AST 19 U/L (15-37); Albumin 4.1 g/dL (3.4-5.0); Alkaline Phosphatase 140 U/L (46-116); Anion Gap 15.9 mmol/L (3-11); BUN 13 mg/dL (7-18); Bilirubin, Total 0.8 mg/dL (0.2-1.0); CO2 21.1 mmol/L (21.0-32.0); CREATININE 0.8 mg/dL (0.55-1.02); Calcium 9.2 mg/dL (8.5-10.1); Chloride 101 mmol/L (98-107); Glucose 203 mg/dL (74-106); Lipase 57 U/L (73-393); Sodium 138 mmol/L (136-145); Total Protein 8.3 g/dL (6.4-8.2)
[2021-08-17] MEDS: Omnipaque 350 MG/ML 100 ML BTL IJ (00:47)
[2021-08-17] MEDS: Normal Saline Flush 10 ML SYR IVP (00:48)
[2021-08-17 00:50] LABS: Diff Comment Agrees w/ Instrument; RBC Morphology Normal
[2021-08-17 01:06] LABS: Bilirubin Negative (Negative); Blood Negative (Negative); Clarity Clear (Clear); Glucose 100 mg/dL (Negative); Ketones >=160 mg/dL (Negative); Leukocyte Esterase Negative (Negative); Nitrite Negative (Negative); Specific Gravity 1.025 (1.005-1.025); Urobilinogen 0.2 EU/dL (Up TO 0.2)
[2021-08-17 01:14] LABS: Bacteria Few HPF (Negative); C & S Indicated? No; Casts Negative LPF (Negative); Crystals Negative HPF (Negative); Epithelial Cells Moderate HPF (Negative); Mucus Trace (Negative); WBC 0-2 HPF (0-5)
--- NOTE | 2021-08-17 01:45 | DI.VRAD_ITS ---
PROCEDURE INFORMATION: Exam: CT Abdomen And Pelvis With Contrast Exam date and time: 08/17/2021 12:49 AM Age: 45 years old Clinical indication: Prior surgery; Surgery date: 6+ months; Surgery type: Cholecystectomy, ; Patient HX: Generalized abdominal pain, epigastric and periumb for a couple days TECHNIQUE: Imaging protocol: Computed tomography of the abdomen and pelvis with contrast. Total images: 1115 Radiation optimization: All CT scans at this facility use at least one of these dose optimization techniques: automated exposure control; mA and/or kV adjustment per patient size (includes targeted exams where dose is matched to clinical indication); or iterative reconstruction. Contrast material: OMNIPAQUE 350; Contrast volume: 85 ml; Contrast route: INTRAVENOUS (IV); COMPARISON: CT ABDOMEN PELVIS W 08/06/2020 2:01 PM FINDINGS: Lungs: Visualized lung bases are clear. Heart: Heart size normal. Diaphragm: Small hiatal hernia. Liver: Normal contour. No mass lesions. No intrahepatic biliary ductal dilatation. Gallbladder and bile ducts: Prior cholecystectomy with expected mild postoperative dilatation of the common bile duct. This is unchanged. Pancreas: Normal. No inflammatory changes or ductal dilation. Spleen: 9 mm bilocular cyst in the anterior superior spleen is unchanged and does not require further assessment. Adrenal glands: Normal. No adrenal mass. Kidneys and ureters: No acute abnormalities. No hydronephrosis or hydroureter. No urinary tract stones are identified. Stomach and bowel: The small bowel is nondilated with no gross abnormality. The colon is largely contracted which likely contributes to the mildly thick walled appearance. This makes it difficult to exclude mild colitis. No evidence of perforation or abscess. Mild diverticulosis involving the distal colon without evidence of acute diverticulitis. Appendix: The appendix is normal in caliber and demonstrates no evidence of appendicitis. Intraperitoneal space: Small amount of intrapelvic free fluid, within physiologic range for a young woman. No free air. Arteries: Vasculature: Moderate atherosclerotic aortoiliac calcification without aneurysm. Lymph nodes: No adenopathy. Urinary bladder: The urinary bladder is largely contracted without gross abnormality. Reproductive: 19 mm enhancing focus in the anterior myometrium of the mid uterine segment is suggestive of an intramural fibroid. 10 mm cyst in the rightward cervix consistent with a nabothian cyst. These are unchanged. There is a 1.5 cm partially collapsed appearing cyst with mild peripheral enhancement in the left ovary most consistent with a recently ruptured and involuting ovarian follicle. This is within physiologic range but may produce symptoms. The right ovary is unremarkable. Bones/joints: No acute osseous abnormalities. Soft tissues: Unremarkable. IMPRESSION: 1. Normal appendix. No evidence of bowel obstruction, perforation, or abscess. No urolithiasis or hydronephrosis. 2. Question mild generalized colonic wall thickening suspicious for colitis although this may relate to its largely contracted status. No evidence of perforation or abscess. 3. Small hiatal hernia. 4. Mild distal colonic diverticulosis without diverticulitis. 5. 1.5 cm partially collapsed and enhancing cystic focus in the left ovary is most consistent with a recently ruptured and involuting follicle. This is within physiologic range but might produce symptoms. 6. Small volume intrapelvic free fluid, within physiologic range. 7. Suspected 19 mm intramural fibroid in the anterior uterus and 10 mm nabothian cyst in the cervix. 8. Additional nonemergent findings detailed above. Dictated and Authenticated by: Isai Headley MD. Ordering:KAVITHA Avila MD
[2021-08-17] MEDS: Ondansetron 4 MG/2 ML VIAL (02:28)
[2021-08-17] MEDS: Metoclopramide 10 MG/2 ML VIAL 20 MG IVP (02:28)
[2021-08-17 02:30] VITALS: BP 118/78; PULSE 84; RESP 18; O2SAT 97
[2021-08-17] MEDS: Ondansetron O.D.T. 4 MG TABEF, 3 TABS/BTL PO (03:25)
--- NOTE | 2021-08-17 23:15 | DI.CT_ITS ---
Exam(s) CT ABDOMEN PELVIS W EXAM: CT ABDOMEN PELVIS W CLINICAL HISTORY: generalized abdominal pain, epigastric and periumb. TECHNIQUE: Imaging Protocol: Axial computed tomography images with coronal and sagittal reformatted images were created and reviewed CONTRAST MATERIAL: Intravenous: Omnipaque 350 Contrast volume:85 ml Oral: no COMPARISON: CT CT ABDOMEN PELVIS W from 08/06/2020 FINDINGS: ABDOMEN: Lung Bases: Normal where visualized. Liver: Normal density. No measurable mass. Gallbladder and biliary tract: Status post cholecystectomy. No radiodense calculus or dilation. Pancreas: Normal density, no abnormal calcifications or inflammatory process. Small hiatal hernia. Spleen: Stable small cyst. Kidneys: Normal size, contour and axis. No radiodense stones or obstructive uropathy. No masses seen. Adrenal glands: No masses seen. Abdominal Aorta: Abdominal portion non-dilated. Mild atherosclerotic changes. PELVIS: Bladder: No gross wall thickening. No calculi.No focal mass. Bowel: Colon decompressed. Diverticulosis descending. No obstruction or bowel wall thickening. Appe ndix normal. Peritoneal cavity: No ascites, collection or mesenteric inflammatory response. Bones: Within normal limits for age. Reproductive organs: Small uterine fibroids. Ovaries unremarkable. Lymph nodes: Unremarkable. Impression: Small hiatal hernia. Status post cholecystectomy. Mild diverticulosis. RADIATION DOSE DELIVERED: 621.82mGy.cm Total DLP DATA REPOSITORY: All CT scans at this facility are submitted to the National Radiology Data Registry (NRDR) Dose Index Registry (DIR) with the [employer] (A[employer]). RADIATION OPTIMIZATION: All CT scans at this facility use at least one of these dose optimization te chniques: automated exposure control; mA and/or kV adjustment per patient size (includes targeted exa ms where dose is matched to clinical indication); or iterative reconstruction.
== END 2021-08-17 03:35 | disposition home or self-care (01) ==
PROVIDERS: Emergency Provider Student in an Organized Health Care Education/Training Program; PCP Family Medicine
DX: R11.2 Nausea with vomiting, unspecified (principal); E86.0 Dehydration; N83.292 Other ovarian cyst, left side; R10.30 Lower abdominal pain, unspecified; R10.13 Epigastric pain
CPT/HCPCS: 80053; 83690; 96361; 96374; 96375; 96376; 99285; 74177; 81003; 81015; 85025; 99284; J2270; J2405; J2765; J3490

== ENCOUNTER 2022-02-12 13:57 | Outpatient (CLI) | payer MEDICAID, SELFPAY ==
--- NOTE | 2022-02-12 13:45 | RT.EKG_ITS ---
APPROVED REPORT Exam: Resting ECG Reason for Exam: SOB Patient Location: O HR:79 bpm ECG Measurements Heart Rate 79 AXIS KS 120 P 70 QRSd 98 QRS -24 QT 366 T 63 QTc 420 Conclusion Sinus rhythm...normal P axis, V-rate 50- 99 Borderline left axis deviation...QRS axis (-15,-29)
== END 2022-02-12 13:58 | disposition home or self-care (01) ==
LOC: DI.CM 13:57
PROVIDERS: PCP Family Medicine; Visit Provider Nurse Practitioner Family
DX: R06.02 Shortness of breath (principal); R94.31 Abnormal electrocardiogram [ECG] [EKG]
CPT/HCPCS: 93010

== ENCOUNTER → 2022-02-18 01:55 | Outpatient (CLI) | payer MEDICAID, SELFPAY ==
--- NOTE | 2022-02-18 13:58 | DI.RAD_ITS ---
Exam(s) XR CHEST 2V PA LATERAL EXAM: XR CHEST 2V PA LATERAL CLINICAL HISTORY: Increased SOB w exertion; smoker J43.9 EMPHYSEMA TECHNIQUE: 2D digital imaging was performed of the chest. Two images were obtained. PA and lateral views were obtained. COMPARISON: CR CHEST 2 VIEWS PA,LAT from 12/07/2016 FINDINGS: MEDIASTINUM: Normal. HEART: Normal. PULMONARY VASCULATURE: Normal. LUNGS: Clear. PLEURAL SPACE: No pleural effusion or pneumothorax. BONE:Within normal limits for the patient's age. OTHER FINDINGS:Normal. IMPRESSION: No acute pulmonary findings. DATA REPOSITORY: RADIATION DOSE DELIVERED:
== END ==
PROVIDERS: PCP Family Medicine; Visit Provider Nurse Practitioner Family
DX: J43.9 Emphysema, unspecified (principal); R06.02 Shortness of breath
CPT/HCPCS: 71046

== ENCOUNTER 2022-07-23 15:23 | Emergency (ER) | payer MEDICAID, SELFPAY ==
[2022-07-23] VITALS (12 sets, daily range): BP systolic 91–159; BP diastolic 52–108; PULSE 64–87; RESP 16–27; TEMP 36.6; O2SAT 95–100
--- NOTE | 2022-07-23 | DI.CT_ITS ---
Exam(s) CT ABDOMEN PELVIS W EXAM: CT ABDOMEN PELVIS W CLINICAL HISTORY: abd pain TECHNIQUE: Imaging Protocol: Axial computed tomography images with coronal and sagittal reformatted images were created and reviewed CONTRAST MATERIAL: Intravenous: Omnipaque 350 Contrast volume:100 mL Oral: No COMPARISON: CT CT ABDOMEN PELVIS W from 08/17/2021 FINDINGS: The examination is limited due to patient motion artifact. ABDOMEN: Lung Bases: There is a small hiatal hernia. Liver: Normal density. No measurable mass. Portal, Superior Mesenteric, and Splenic Veins: Unremarkable. Gallbladder and Biliary Tract: Status post cholecystectomy. No biliary ductal dilatation. Pancreas: Normal density, no abnormal calcifications or inflammatory process. Spleen: Normal. There is a 1.5 x 1.5 cm cyst in the superior pole of the spleen. This has increased in size from 0.5 cm on the prior examination. Adrenals: No masses seen. Kidneys: Normal size, contour and axis. No radiodense stones or obstructive uropathy. No masses seen. Abdominal Aorta: Abdominal portion non-dilated. There is atherosclerosis present. Bowel: No obstruction or bowel wall thickening. No evidence of appendicitis. There is diverticulosis but no evidence of acute diverticulitis. Peritoneal Cavity: No ascites, collection or mesenteric inflammatory response. No free air. Lymph Nodes: Within normal limits. Bones: Within normal limits for the patient's age. Soft Tissues: Unremarkable. PELVIS: Bladder: Symmetric distention, no gross wall thickening. Reproductive Organs: There are cysts seen in the region of the cervix likely reflecting nabothian cys ts. Lymph Nodes: Within normal limits. Bones: Within normal limits for the patient's age. IMPRESSION: 1. No acute abdominal or pelvic process. 2. Increase in size of simple appearing splenic cyst since the prior examination. 3. Cystic structures in the cervix likely reflecting nabothian cysts. If there is concern for pelvic pathology, ultrasound may be obtained. RADIATION DOSE DELIVERED: 1,384.93mGy.cm Total DLP DATA REPOSITORY: All CT scans at this facility are submitted to the National Radiology Data Registry (NRDR) Dose Index Registry (DIR) with the [employer] ([employer]). RADIATION OPTIMIZATION: All CT scans at this facility use at least one of these dose optimization te chniques: automated exposure control; mA and/or kV adjustment per patient size (includes targeted exa ms where dose is matched to clinical indication); or iterative reconstruction.
[2022-07-23 15:54] LABS: Abs Immature Grans 0.12 10^3/uL (0.0-0.06); Absolute Basophil Count 0.07 10^3/uL (0.0-0.2); Absolute Monocyte Count 0.86 10^3/uL (0.1-0.8); Absolute Neutrophil Count 19.91 10^3/uL (1.2-6.7); Basophils % 0.3; HCT 43.8 % (36.0-46.0); Immature Grans % 0.5; Lymphocytes % 7.1; MCH 30.1 pg (27.0-33.0); MCHC 34.2 % (32.0-36.0); MCV 88 fL (80-95); Monocytes % 3.8; Neutrophils % 88.3; Platelet Count 432 10^3/uL (130-400); RBC 4.99 10^6/uL (3.93-5.22); RDW 15.2 % (11.7-14.6); RDW-SD 48.3 fL; WBC 22.55 10^3/uL (4.4-10.8)
[2022-07-23 16:09] LABS: ALT 27 U/L (14-59); AST 18 U/L (15-37); Albumin 4.1 g/dL (3.4-5.0); Alkaline Phosphatase 134 U/L (46-116); Anion Gap 12.4 mmol/L (3-11); BUN 9 mg/dL (7-18); Bilirubin, Total 0.3 mg/dL (0.2-1.0); CO2 23.6 mmol/L (21.0-32.0); CREATININE 0.7 mg/dL (0.55-1.02); Calcium 9.6 mg/dL (8.5-10.1); Chloride 102 mmol/L (98-107); Estimated GFR 107.28 (mL/min/1.73m2); Glucose 140 mg/dL (74-106); Potassium 3.8 mmol/L (3.5-5.1); Sodium 138 mmol/L (136-145); Total Protein 8.4 g/dL (6.4-8.2)
[2022-07-23] MEDS: Ondansetron 4 MG/2 ML VIAL IVP (16:16)
[2022-07-23] MEDS: Normal Saline 1,000 ML 1000 ML IV ×2 (16:16→21:27)
[2022-07-23 16:19] LABS: INR 0.9 (0.9-1.1); Prothrombin Time 9.3 sec (9.3-11.0)
[2022-07-23 16:20] LABS: Lipase 37 U/L (16-77)
[2022-07-23] MEDS: Omnipaque 350 MG/ML 100 ML BTL IJ (16:30)
--- NOTE | 2022-07-23 16:30 | ED.GENADUL_ITS ---
Discharge Plan Disposition Patient Disposition: Home Condition: Improving Discharge Details Clinical Impression: Cannabinoid hyperemesis syndrome, Gastroenteritis Primary Care Provider: Iraida Kumar ED Provider: Deyanira Melendez Home Meds and New Rx's Prescriptions: Continued triamcinolone acetonide 0.5 % cream 1 applic topical BID Qty: 45 2RF ferrous sulfate [FeroSul] 325 mg (65 mg iron) tablet 325 mg PO DAILY Qty: 30 3RF Patient Comments: Pt states she doesn't take albuterol sulfate [ProAir HFA] 90 mcg/actuation HFA aerosol inhaler 1 puff Inhalation Q4H PRN Qty: 3 1RF Saccharomyces boulardii [Probiotic (S.boulardii)] 250 mg capsule 250 mg PO BID Qty: 60 0RF Patient Comments: Pt states she doesn't take Rx Instructions: swallow whole omeprazole 40 mg capsule,delayed release(DR/EC) 40 mg PO DAILY Qty: 90 3RF Rx Instructions: take 1 tab daily valacyclovir 500 mg tablet 500 mg PO BID Qty: 6 3RF Rx Instructions: Take bid for 3 days. zolpidem 5 mg tablet 5 mg PO QHS PRN fluticasone propionate [Flovent HFA] 110 mcg/actuation HFA aerosol inhaler 2 puff Inhalation BID Qty: 3 3RF duloxetine 30 mg capsule,delayed release(DR/EC) 30 mg PO DAILY Qty: 90 3RF Spiriva Respimat 1.25 mcg/actuation mist 2 puff inhalation Q24H Qty: 12 3RF acetaminophen [Tylenol] 325 mg Tablet 650 mg PO Q4H PRN PRNQty: 30 0RF ondansetron 4 mg tablet,disintegrating 4 mg PO Q6H PRN (Reason: nausea and vomiting) Qty: 14 0RF Discharge Instructions Instructions: Gastroenteritis (ED) Additional Instructions: clear fluids, advance as tolerated Referrals: Iraida Kumar MD [Primary Care Provider] - Discharge Data Discharge Date/Time-TO BE ENTERED AT DEPARTURE: 07/23/22 22:50 Medical Decision Making <Deyanira Melendez NP - Last Filed: 07/25/22 18:05> 46-year-old female with abdominal pain nausea vomiting and diarrhea consistent with history of diverticulitis. Will establish IV give 1 L of normal saline Zofran 4 mg IV push while awaiting lab work and IV contrast CT scan of the abdomen and pelvis. Hemodynamically she is stable no acute bleeding noted here. patient continues to have nausea and vomiting. phenergan 25 mg IVPB given. vitals remain stable. patient reports recent antibiotic course for dental abscess, will check c diff. protonix 40 mg IV and gi cocktail given for symptoms. reports THC use and has had issues with n/v intractable in the past. a second liter of NS and droperidol 2.5 mg given for ongoing symptoms <Jewel Ortiz MD - Last Filed: 08/01/22 22:11> Note: I did not evaluate this patient or provide treatment. The treating provider did not request consultation or my involvement in care. HPI <Deyanira Melendez NP - Last Filed: 07/25/22 18:05> General Date/Time Provider Initiated Documentation: 07/23/22 15:35 . Limitations to Documentation: no limitations . Information obtained by: patient . HPI Narrative: This is a 46-year-old female with a history of diverticulitis who presents to the emergency department for evaluation of epigastric and left-sided abdominal pain that started this morning she reports associated bloody stools and vomiting with blood streaks. She denies any fever. She has been unable to tolerate any oral intake. She states symptoms are consistent with history of diverticulitis. There are no family members with similar symptoms Related Data Home Medications Medication Instructions Recorded Confirmed acetaminophen 325 mg tablet 650 mg PO Q4H PRN PRN #30 tabs 06/16/19 07/25/22 (Tylenol) Saccharomyces boulardii 250 mg 250 mg PO BID #60 caps 01/02/20 07/25/22 capsule (Probiotic (S.boulardii)) triamcinolone acetonide 0.5 % 1 applic topical BID #45 grams 02/26/20 07/25/22 topical cream omeprazole 40 mg capsule,delayed 40 mg PO DAILY #90 tab-caps 07/30/20 07/25/22 release ferrous sulfate 325 mg (65 mg 325 mg PO DAILY #30 tabs 01/16/21 07/25/22 iron) tablet (FeroSul) zolpidem 5 mg tablet 5 mg PO QHS PRN 04/08/21 07/25/22 albuterol sulfate 90 mcg/actuation 1 puff inhalation Q4H PRN ##3 05/29/21 07/25/22 aerosol inhaler (ProAir HFA) valacyclovir 500 mg tablet 500 mg PO BID #6 tabs 10/02/21 07/25/22 fluticasone propionate 110 2 puff inhalation BID ##3 06/02/22 07/25/22 mcg/actuation HFA aerosol inhaler (Flovent HFA) duloxetine 30 mg capsule,delayed 30 mg PO DAILY #90 caps 06/30/22 07/25/22 release tiotropium bromide 1.25 2 puff inhalation Q24H #12 grams 07/02/22 07/25/22 mcg/actuation mist for inhalation (Spiriva Respimat) ondansetron 4 mg disintegrating 4 mg PO Q6H PRN nausea and 07/23/22 07/25/22 tablet vomiting #14 tabs Previous Rx's Medication Instructions Recorded acetaminophen 325 mg tablet 650 mg PO Q4H PRN PRN #30 tabs 06/16/19 (Tylenol) Saccharomyces boulardii 250 mg 250 mg PO BID #60 caps 01/02/20 capsule (Probiotic (S.boulardii)) triamcinolone acetonide 0.5 % 1 applic topical BID #45 grams 02/26/20 topical cream omeprazole 40 mg capsule,delayed 40 mg PO DAILY #90 tab-caps 07/30/20 release ferrous sulfate 325 mg (65 mg 325 mg PO DAILY #30 tabs 01/16/21 iron) tablet (FeroSul) albuterol sulfate 90 mcg/actuation 1 puff inhalation Q4H PRN ##3 05/29/21 aerosol inhaler (ProAir HFA) valacyclovir 500 mg tablet 500 mg PO BID #6 tabs 10/02/21 fluticasone propionate 110 2 puff inhalation BID ##3 06/02/22 mcg/actuation HFA aerosol inhaler (Flovent HFA) duloxetine 30 mg capsule,delayed 30 mg PO DAILY #90 caps 06/30/22 release tiotropium bromide 1.25 2 puff inhalation Q24H #12 grams 07/02/22 mcg/actuation mist for inhalation (Spiriva Respimat) ondansetron 4 mg disintegrating 4 mg PO Q6H PRN nausea and 07/23/22 tablet vomiting #14 tabs Allergies Allergy/AdvReac Type Severity Reaction Status Date / Time hydrocodone AdvReac Severe Restlessnes Verified 02/12/22 13:34 s nicotine AdvReac Severe Caused Verified 02/12/22 13:34 pain down extremity amoxicillin AdvReac thrush Verified 02/12/22 13:34 bupropion [From Wellbutrin] AdvReac jitters Verified 02/12/22 13:34 gabapentin AdvReac sob Verified 02/12/22 13:34 tramadol AdvReac restlessnes Verified 02/12/22 13:34 s varenicline [From Chantix] AdvReac vomiting Verified 02/12/22 13:34 General Stated Complaint: GI Bleed ROSI: 3 Review of Systems <Deyanira Melendez NP - Last Filed: 07/25/22 18:05> All systems reviewed & are unremarkable except as noted in HPI and below PFSH <Deyanira Melendez NP - Last Filed: 07/25/22 18:05> All Active Problems Cannabinoid hyperemesis syndrome (Acute) Gastroenteritis (Acute) Nausea & vomiting (Acute) Chest pain, non-cardiac (Acute) Leukocytosis (Chronic) chronic, prior eval with hematology at [facility] Sacroiliac joint dysfunction of right side (Chronic) Chronic pain (Chronic) Improved with duloxetine Migraine (Chronic 07/06/11) 2 headaches / month; triggers are noxious smells Chronic obstructive lung disease (Chronic) Diarrhea (Chronic) chronic diarrhea Gastroesophageal reflux disease (Chronic) per EGD-01/16 Abdominal pain (Chronic 08/12/14) extensive workup at [facility] 2010- no specific cause Anxiety (Chronic) Hyperlipidemia (Chronic) Insomnia disorder (Chronic 05/01/15) Restless legs syndrome (Chronic 12/03/14) Smoker (Chronic) started age 16; 1 ppd Medical History (Updated 07/25/22 @ 16:41 by Jean Lopez MD) Abnormal auditory perception of both ears (04/04/17) Acute gastritis REACTIVE GASTROPATHY 01/19/10- DR. ADAMS PER EGD 09/01/16 DR. LOWRY-SEVERE GASTRITIS WITH AN ULCER Allergic eosinophilia INTRAEPITHELIAL EOSINOPHILS, 01/19/10- Rima ADAMS PER EGD Diverticulosis (09/01/16) with history of diverticulitis DUB (dysfunctional uterine bleeding) Fatigue Hiatal hernia (09/01/16) Myalgia Uterine fibroid Surgical History History of bilateral salpingo-oophorectomy Status post cholecystectomy Family History Mother , 69 Essential hypertension Heart disease Hyperlipidemia Myocardial infarction AFTER SURGERY AND BLEEDING W/ BLOOD CLOT TO THE HEART. Father Alcohol abuse Personal history of malignant neoplasm THROAT/LIVER/LUNG Brother Alcohol abuse Personal history of malignant neoplasm LIVER Grandfather Personal history of malignant neoplasm Heart disease Grandmother Essential hypertension Stroke Grandmother Personal history of malignant neoplasm Social History (Updated 10/06/21 @ 10:09 by Luh Garces) Smoking/Tobacco Use Status: Current every day Tobacco Type: cigarettes Smoking packs per day: 1 Smoking cigarettes per day: 20.0 Years smoked: 24 Smoking pack- years: 24.00 Tobacco: How many years used: 24 Quit status: considering quitting Second Hand Exposure: Yes Counseling given: provider counseling Smoking risk assessment performed?: Yes Alcohol Intake: never Drug use: Occasionally Substance use type: marijuana Caregiver/Support person: No Household members: spouse and children Housing: house Number of Children: 2 Communication Needs: None Do you need help understanding health information?: Never current occupation: works at home. Pets and animals: Yes Pets and animals: cat(s), dog(s) and farm animals Sexually active: Yes Do you think of yourself as: straight/heterosexual Current gender identity: decline to answer What is your relationship status?: How often do you talk on the phone with friends or family?: never How often do you get together with friends or relatives?: decline to answer How often do you attend mandaen or hinduism services?: decline to answer Do you belong to any clubs or organized social groups?: no Panel score (0-1 are the most socially isolated patients): 1 What type of physical activity do you participate in: none Duration: 15-30 minutes/day Frequency: 3-4 times per week Renetta/Scientology: None Seatbelt use: always Helmet use: Yes Drive intox or ride w/intox test driver: No Do you feel safe at home: Yes Do you feel safe in your relationship?: Yes Additional Social history: Enjoys gardening. Exam <Deyanira Melendez NP - Last Filed: 07/25/22 18:05> Narrative Exam Narrative: Acutely ill female appearing older than stated age laying on her right side in the position on the stretcher. Head is atraumatic oral mucosa slightly dry. Neck is supple. Cardiovascular regular rate and rhythm her pulse is in the 60s sinus rhythm blood pressure normotensive. Abdomen is round soft tender over the epigastrium and left side no masses no rebound no guarding her extremities are without edema skin is pale with no rashes or lesions noted Course <Deyanira Melendez NP - Last Filed: 07/25/22 18:05> Vital Signs Vital signs: Vital Signs Temperature 36.6 C 07/23/22 15:30 Pulse 72 07/23/22 15:30 Respiratory Rate 22 07/23/22 15:30 Blood Pressure 159/108 H 07/23/22 15:30 Pulse Oximetry 99 07/23/22 15:30 Temperature 36.6 C 07/23/22 15:30 Temperature Source Skin 07/23/22 15:30 Pulse 72 07/23/22 15:30 Respiratory Rate 22 07/23/22 15:30 Respiratory Effort Normal 07/23/22 16:19 Blood Pressure 159/108 H 07/23/22 15:30 Pulse Oximetry 99 07/23/22 15:30 Oxygen Delivery Method Room Air 07/23/22 15:30 Oxygen Flow Rate 0 07/23/22 15:30 Pain Level 8 07/23/22 16:19 Lab/Test Results Lab/Test Results: Laboratory Tests Range/Units 07/23/22 07/23/22 07/23/22 15:40 15:40 15:40 WBC (4.4-10.8) 10^3/uL 22.55 H RBC (3.93-5.22) 10^6/uL 4.99 Hgb (11.2-15.7) g/dL 15.0 Hct (36.0-46.0) % 43.8 MCV (80-95) fL 88 MCH (27.0-33.0) pg 30.1 MCHC (32.0-36.0) % 34.2 RDW (11.7-14.6) % 15.2 H Plt Count (130-400) 10^3/uL 432 H MPV (8.0-11.0) fL 10.0 Immature Gran % 0.5 Neutrophils % 88.3 Lymphocytes % 7.1 Monocytes % 3.8 Eosinophils % 0.0 Basophils % 0.3 Nucleated RBC % (0.0-0.3) % 0.0 Absolute Neutrophils (1.2-6.7) 10^3/uL 19.91 H Absolute Lymphocytes (1.2-3.4) 10^3/uL 1.60 Absolute Monocytes (0.1-0.8) 10^3/uL 0.86 H Absolute Eosinophils (0.0-0.7) 10^3/uL 0.00 Absolute Basophils (0.0-0.2) 10^3/uL 0.07 PT (9.3-11.0) sec 9.3 INR (0.9-1.1) 0.9 APTT (21.5-31.9) sec 25.0 Sodium (136-145) mmol/L 138 Potassium (3.5-5.1) mmol/L 3.8 Chloride (98-107) mmol/L 102 Carbon Dioxide (21.0-32.0) mmol/L 23.6 Anion Gap (3-11) mmol/L 12.4 H BUN (7-18) mg/dL 9 Creatinine (0.55-1.02) mg/dL 0.7 Est GFR (CKD-EPI 2020) (mL/min/1.73m2) 107.28 Glucose (74-106) mg/dL 140 H Calcium (8.5-10.1) mg/dL 9.6 Total Bilirubin (0.2-1.0) mg/dL 0.3 AST (15-37) U/L 18 ALT (14-59) U/L 27 Alkaline Phosphatase (46-116) U/L 134 H Total Protein (6.4-8.2) g/dL 8.4 H Albumin (3.4-5.0) g/dL 4.1 Lipase (16-77) U/L Range/Units 07/23/22 15:40 WBC (4.4-10.8) 10^3/uL RBC (3.93-5.22) 10^6/uL Hgb (11.2-15.7) g/dL Hct (36.0-46.0) % MCV (80-95) fL MCH (27.0-33.0) pg MCHC (32.0-36.0) % RDW (11.7-14.6) % Plt Count (130-400) 10^3/uL MPV (8.0-11.0) fL Immature Gran % Neutrophils % Lymphocytes % Monocytes % Eosinophils % Basophils % Nucleated RBC % (0.0-0.3) % Absolute Neutrophils (1.2-6.7) 10^3/uL Absolute Lymphocytes (1.2-3.4) 10^3/uL Absolute Monocytes (0.1-0.8) 10^3/uL Absolute Eosinophils (0.0-0.7) 10^3/uL Absolute Basophils (0.0-0.2) 10^3/uL PT (9.3-11.0) sec INR (0.9-1.1) APTT (21.5-31.9) sec Sodium (136-145) mmol/L Potassium (3.5-5.1) mmol/L Chloride (98-107) mmol/L Carbon Dioxide (21.0-32.0) mmol/L Anion Gap (3-11) mmol/L BUN (7-18) mg/dL Creatinine (0.55-1.02) mg/dL Est GFR (CKD-EPI 2020) (mL/min/1.73m2) Glucose (74-106) mg/dL Calcium (8.5-10.1) mg/dL Total Bilirubin (0.2-1.0) mg/dL AST (15-37) U/L ALT (14-59) U/L Alkaline Phosphatase (46-116) U/L Total Protein (6.4-8.2) g/dL Albumin (3.4-5.0) g/dL Lipase (16-77) U/L 37
[2022-07-23] MEDS: Normal Saline - Diluent 50 ML VIAL IJ (16:36)
[2022-07-23] MEDS: Ketorolac 30 MG/ML VIAL IVP (17:08)
--- NOTE | 2022-07-23 17:56 | DI.VRAD_ITS ---
PROCEDURE INFORMATION: Exam: CT Abdomen And Pelvis With Contrast Exam date and time: 07/23/2022 4:29 PM Age: 46 years old Clinical indication: Nausea and vomiting and other: Abd pain; Additional info: Reimaged pelvis area due to motion TECHNIQUE: Imaging protocol: Computed tomography of the abdomen and pelvis with contrast. Contrast material: 350; Contrast volume: 100 ml; Contrast route: INTRAVENOUS (IV); COMPARISON: CT ABDOMEN PELVIS W 08/17/2021 12:49 AM FINDINGS: Diaphragm: Small hiatal hernia is noted. Liver: Unremarkable liver. No mass identified. Gallbladder and bile ducts: The patient is status post cholecystectomy. Pancreas: Normal. No ductal dilation. Spleen: Previously noted splenic cyst has increased in size measuring 2.0 cm, previously 0.5cm (image 8, series 4). No splenomegaly. Adrenal glands: The adrenal glands are unremarkable. No defined mass. Kidneys and ureters: The kidneys are normal. Stomach and bowel: No bowel obstruction. No mucosal thickening. There is sigmoid diverticulosis without acute diverticulitis. Appendix: No evidence of appendicitis. Intraperitoneal space: No free air. No significant fluid collection. Vasculature: No abdominal aortic aneurysm. Lymph nodes: No enlarged lymph nodes. Urinary bladder: Unremarkable urinary bladder. Reproductive: 1.7 cm cystic structure is noted in the left ovary. Cystic structures in the region of the cervix may represent nabothian cysts. Bones/joints: No acute fracture. Soft tissues: Unremarkable. IMPRESSION: 1. No evidence of bowel obstruction or acute bowel inflammation. 2. Simple-appearing splenic cyst has increased in size prior examination measuring 2 cm. 3. Cystic structures in the cervix may represent nabothian cysts. If there is clinical concern for pelvic pathology, ultrasound evaluation is recommended. Dictated and Authenticated by: Stephy Gallardo MD. Ordering:KYRIE Mcmillan MD
[2022-07-23] MEDS: Pantoprazole 40 MG VIAL IVP (19:35)
[2022-07-23] MEDS: Lidocaine 2% Viscous 15 ML CUP (19:49)
[2022-07-23] MEDS: Droperidol 5 MG/2 ML VIAL 2.5 MG IVP (20:38)
--- NOTE | 2022-07-24 18:16 | NUR.NOTE ---
Nursing Note: Lab called stating that the cdiff order was outstanding. No specimen in the lab, no outpatient orders found. Consulted Dr. Lopez and the order is cancelled.
== END 2022-07-23 22:50 | disposition home or self-care (01) ==
PROVIDERS: Emergency Provider Nurse Practitioner Acute Care; PCP Family Medicine
DX: K52.9 Noninfective gastroenteritis and colitis, unspecified (principal); F12.90 Cannabis use, unspecified, uncomplicated
CPT/HCPCS: 36415; 80053; 83690; 87493; 96361; 96365; 96375; 99285; 74177; 85025; 85610; 85730; 99284; J1790; J1885; J2405; J3490

== ENCOUNTER 2022-07-25 14:11 | Emergency (ER) | payer MEDICAID, SELFPAY ==
[2022-07-25 14:14] VITALS: BP 156/75; PULSE 68; RESP 22; TEMP 36.7; O2SAT 100
--- NOTE | 2022-07-25 14:15 | RT.EKG_ITS ---
APPROVED REPORT Exam: Resting ECG Reason for Exam: nausea, vomiting Patient Location: E HR:64 bpm ECG Measurements Heart Rate 64 AXIS MA 149 P 69 QRSd 103 QRS 62 QT 422 T 60 QTc 435 Conclusion Sinus arrhythmia...V-rate 48- 75, variation>10% ST elev, probable normal early repol pattern...ST elevation, age<55 motion artifact, no stemi
--- NOTE | 2022-07-25 14:28 | ED.GENADUL_ITS ---
Discharge Plan Disposition Patient Disposition: Home Condition: Stable Discharge Details Clinical Impression: Nausea & vomiting Primary Care Provider: Iraida Kumar ED Provider: Jean Lopez Home Meds and New Rx's Prescriptions: Continued triamcinolone acetonide 0.5 % cream 1 applic topical BID Qty: 45 2RF ferrous sulfate [FeroSul] 325 mg (65 mg iron) tablet 325 mg PO DAILY Qty: 30 3RF Patient Comments: Pt states she doesn't take albuterol sulfate [ProAir HFA] 90 mcg/actuation HFA aerosol inhaler 1 puff Inhalation Q4H PRN Qty: 3 1RF Saccharomyces boulardii [Probiotic (S.boulardii)] 250 mg capsule 250 mg PO BID Qty: 60 0RF Patient Comments: Pt states she doesn't take Rx Instructions: swallow whole omeprazole 40 mg capsule,delayed release(DR/EC) 40 mg PO DAILY Qty: 90 3RF Rx Instructions: take 1 tab daily valacyclovir 500 mg tablet 500 mg PO BID Qty: 6 3RF Rx Instructions: Take bid for 3 days. zolpidem 5 mg tablet 5 mg PO QHS PRN fluticasone propionate [Flovent HFA] 110 mcg/actuation HFA aerosol inhaler 2 puff Inhalation BID Qty: 3 3RF duloxetine 30 mg capsule,delayed release(DR/EC) 30 mg PO DAILY Qty: 90 3RF Spiriva Respimat 1.25 mcg/actuation mist 2 puff inhalation Q24H Qty: 12 3RF acetaminophen [Tylenol] 325 mg Tablet 650 mg PO Q4H PRN PRNQty: 30 0RF ondansetron 4 mg tablet,disintegrating 4 mg PO Q6H PRN (Reason: nausea and vomiting) Qty: 14 0RF Discharge Instructions Instructions: Acute Nausea and Vomiting (ED), Acute Diarrhea (ED) Additional Instructions: your blood work did not show concerning findings follow up with your primary care provider this week if you feel more ill, have severe worsening pain or fevers return to the emergency department Medical Decision Making 46 yo female with hx of anxiety, hld, gerd, insomnia, who comes in with cc of n/v since Tuesday. She was seen in the ED on Tuesday and had blood work and a ct done. Her ct showed no acute findings, had a wbc over 20 but chronically has leukocytosis. She felt better and was d/c'd. She says yesterday she felt okay without vomiting but today vomiting and abdominal cramping returned. She denies fevers, chills, chest pain. She arrives stable speaking clearly in no distress. She has a soft nondistended abdomen with mild tenderness in the llq, no guarding or rebound. Unclear etiology for continued symptoms, given recent negative ct doubt surgical pathology such as sbo. Will provide ivf, droperidol, and obtain cbc, cmp, lipase and reassess. pt stable resting comfortably in bed in no distress, has been tolerating some water. Blood work reassuring, wbc today 14, ua and c diff pending ua unremarkable, is unable to provide stool sample. IS tolerating po now and no vomiting since being here, no tenderness on repeat abd exam. Discussed with pt and she feels comfortable with d/c, outpatient c diff lab order provided, she will f/u with her pcp, return precautions given Differential Diagnosis Differential Diagnosis: food illness, c diff, electrolyte abnormality Medical Records Medical records reviewed: Yes I reviewed the patient's medical records. Lab Data Lab results reviewed: Yes I reviewed the patient's lab results. ECG Data Attestation: I personally reviewed and interpreted this ECG (s) as follows: Prior ECG tracings: not available for review Interpretation: sinus rhythm, rate of 64, no stemi, motion artifact HPI General Mode of arrival: ambulatory . Date/Time Provider Initiated Documentation: 07/25/22 14:11 . Limitations to Documentation: no limitations . Information obtained by: patient . History of Present Illness 46 year old F presents to the emergency department with the chief complaint of n/v, described as moderate, Patient started experiencing this day(s) (2) and it has been intermittent. No relieving factors improve symptom(s), No exacerbating factors reported . Patient notes denies chest pain. Patient did receive the following treatments prior to arrival, none Related Data Home Medications Medication Instructions Recorded Confirmed acetaminophen 325 mg tablet 650 mg PO Q4H PRN PRN #30 tabs 06/16/19 07/25/22 (Tylenol) Saccharomyces boulardii 250 mg 250 mg PO BID #60 caps 01/02/20 07/25/22 capsule (Probiotic (S.boulardii)) triamcinolone acetonide 0.5 % 1 applic topical BID #45 grams 02/26/20 07/25/22 topical cream omeprazole 40 mg capsule,delayed 40 mg PO DAILY #90 tab-caps 07/30/20 07/25/22 release ferrous sulfate 325 mg (65 mg 325 mg PO DAILY #30 tabs 01/16/21 07/25/22 iron) tablet (FeroSul) zolpidem 5 mg tablet 5 mg PO QHS PRN 04/08/21 07/25/22 albuterol sulfate 90 mcg/actuation 1 puff inhalation Q4H PRN ##3 05/29/21 07/25/22 aerosol inhaler (ProAir HFA) valacyclovir 500 mg tablet 500 mg PO BID #6 tabs 10/02/21 07/25/22 fluticasone propionate 110 2 puff inhalation BID ##3 06/02/22 07/25/22 mcg/actuation HFA aerosol inhaler (Flovent HFA) duloxetine 30 mg capsule,delayed 30 mg PO DAILY #90 caps 06/30/22 07/25/22 release tiotropium bromide 1.25 2 puff inhalation Q24H #12 grams 07/02/22 07/25/22 mcg/actuation mist for inhalation (Spiriva Respimat) ondansetron 4 mg disintegrating 4 mg PO Q6H PRN nausea and 07/23/22 07/25/22 tablet vomiting #14 tabs Previous Rx's Medication Instructions Recorded acetaminophen 325 mg tablet 650 mg PO Q4H PRN PRN #30 tabs 06/16/19 (Tylenol) Saccharomyces boulardii 250 mg 250 mg PO BID #60 caps 01/02/20 capsule (Probiotic (S.boulardii)) triamcinolone acetonide 0.5 % 1 applic topical BID #45 grams 02/26/20 topical cream omeprazole 40 mg capsule,delayed 40 mg PO DAILY #90 tab-caps 07/30/20 release ferrous sulfate 325 mg (65 mg 325 mg PO DAILY #30 tabs 01/16/21 iron) tablet (FeroSul) albuterol sulfate 90 mcg/actuation 1 puff inhalation Q4H PRN ##3 05/29/21 aerosol inhaler (ProAir HFA) valacyclovir 500 mg tablet 500 mg PO BID #6 tabs 10/02/21 fluticasone propionate 110 2 puff inhalation BID ##3 06/02/22 mcg/actuation HFA aerosol inhaler (Flovent HFA) duloxetine 30 mg capsule,delayed 30 mg PO DAILY #90 caps 06/30/22 release tiotropium bromide 1.25 2 puff inhalation Q24H #12 grams 07/02/22 mcg/actuation mist for inhalation (Spiriva Respimat) ondansetron 4 mg disintegrating 4 mg PO Q6H PRN nausea and 07/23/22 tablet vomiting #14 tabs Allergies Allergy/AdvReac Type Severity Reaction Status Date / Time hydrocodone AdvReac Severe Restlessnes Verified 02/12/22 13:34 s nicotine AdvReac Severe Caused Verified 02/12/22 13:34 pain down extremity amoxicillin AdvReac thrush Verified 02/12/22 13:34 bupropion [From Wellbutrin] AdvReac jitters Verified 02/12/22 13:34 gabapentin AdvReac sob Verified 02/12/22 13:34 tramadol AdvReac restlessnes Verified 02/12/22 13:34 s varenicline [From Chantix] AdvReac vomiting Verified 02/12/22 13:34 General Stated Complaint: Abd Prob ROSI: 3 Review of Systems All systems reviewed & are unremarkable except as noted in HPI and below Constitutional Constitutional: Denies chills, Denies fever(s) and Denies weakness Cardiovascular Cardiovascular: Denies chest pain and Denies dyspnea Respiratory Respiratory: Denies cough and Denies dyspnea Genitourinary Genitourinary: Denies dysuria Musculoskeletal Musculoskeletal: Denies joint swelling Integumentary/Breasts Skin/Breast: Denies rash Neurologic Neurologic: Denies weakness PFSH All Active Problems Cannabinoid hyperemesis syndrome (Acute) Gastroenteritis (Acute) Nausea & vomiting (Acute) Chest pain, non-cardiac (Acute) Leukocytosis (Chronic) chronic, prior eval with hematology at [facility] Sacroiliac joint dysfunction of right side (Chronic) Chronic pain (Chronic) Improved with duloxetine Migraine (Chronic 07/06/11) 2 headaches / month; triggers are noxious smells Chronic obstructive lung disease (Chronic) Diarrhea (Chronic) chronic diarrhea Gastroesophageal reflux disease (Chronic) per EGD-01/16 Abdominal pain (Chronic 08/12/14) extensive workup at [facility] 2010- no specific cause Anxiety (Chronic) Hyperlipidemia (Chronic) Insomnia disorder (Chronic 05/01/15) Restless legs syndrome (Chronic 12/03/14) Smoker (Chronic) started age 16; 1 ppd Medical History (Updated 07/25/22 @ 16:41 by Jean Lopez MD) Abnormal auditory perception of both ears (04/04/17) Acute gastritis REACTIVE GASTROPATHY 01/19/10- DR. ADAMS PER EGD 09/01/16 DR. LOWRY-SEVERE GASTRITIS WITH AN ULCER Allergic eosinophilia INTRAEPITHELIAL EOSINOPHILS, 01/19/10- Rima ADAMS PER EGD Diverticulosis (09/01/16) with history of diverticulitis DUB (dysfunctional uterine bleeding) Fatigue Hiatal hernia (09/01/16) Myalgia Uterine fibroid Surgical History History of bilateral salpingo-oophorectomy Status post cholecystectomy Family History Mother , 69 Essential hypertension Heart disease Hyperlipidemia Myocardial infarction AFTER SURGERY AND BLEEDING W/ BLOOD CLOT TO THE HEART. Father Alcohol abuse Personal history of malignant neoplasm THROAT/LIVER/LUNG Brother Alcohol abuse Personal history of malignant neoplasm LIVER Grandfather Personal history of malignant neoplasm Heart disease Grandmother Essential hypertension Stroke Grandmother Personal history of malignant neoplasm Social History (Updated 10/06/21 @ 10:09 by Luh Garces) Smoking/Tobacco Use Status: Current every day Tobacco Type: cigarettes Smoking packs per day: 1 Smoking cigarettes per day: 20.0 Years smoked: 24 Smoking pack- years: 24.00 Tobacco: How many years used: 24 Quit status: considering quitting Second Hand Exposure: Yes Counseling given: provider counseling Smoking risk assessment performed?: Yes Alcohol Intake: never Drug use: Occasionally Substance use type: marijuana Caregiver/Support person: No Household members: spouse and children Housing: house Number of Children: 2 Communication Needs: None Do you need help understanding health information?: Never current occupation: works at home. Pets and animals: Yes Pets and animals: cat(s), dog(s) and farm animals Sexually active: Yes Do you think of yourself as: straight/heterosexual Current gender identity: decline to answer What is your relationship status?: How often do you talk on the phone with friends or family?: never How often do you get together with friends or relatives?: decline to answer How often do you attend jehovah's witness or buddhism services?: decline to answer Do you belong to any clubs or organized social groups?: no Panel score (0-1 are the most socially isolated patients): 1 What type of physical activity do you participate in: none Duration: 15-30 minutes/day Frequency: 3-4 times per week Renetta/Nondenominational: None Seatbelt use: always Helmet use: Yes Drive intox or ride w/intox 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 Exam Const General: no acute distress Orientation: alert HENMT Head: normal to inspection Ears: external ears normal General nose exam: external nose normal Mouth: moist mucous membranes Eyes General: appearance normal, both eyes and all related structures Neck Neck: normal visual inspection Resp Effort & Inspection: normal respiratory effort and able to speak in complete sentences Auscultation: clear to auscultation bilaterally Cardio Jugular venous pressure: no JVD Rate: regular rate Heart Sounds: no murmurs GI Inspection: non-distended Palpation: soft and tender Skin General skin exam: no rashes or lesions noted Neuro General: patient alert and patient oriented x3 Extrem General: normal to inspection Psych Mental Status: mental status grossly normal Course Vital Signs Vital signs: Vital Signs Temperature 36.7 C 07/25/22 14:14 Pulse 68 07/25/22 14:14 Respiratory Rate 07/25/22 14:14 Blood Pressure 156/75 H 07/25/22 14:14 Pulse Oximetry 100 07/25/22 14:14 Temperature 36.7 C 07/25/22 14:14 Temperature Source Oral 07/25/22 14:14 Pulse 68 07/25/22 14:14 Respiratory Rate 07/25/22 14:14 Respiratory Effort Non-Labored 07/25/22 14:21 Blood Pressure 156/75 H 07/25/22 14:14 Blood Pressure Position Sitting 07/25/22 14:14 Pulse Oximetry 100 07/25/22 14:14 Oxygen Delivery Method Room Air 07/25/22 14:14 Oxygen Flow Rate 0 07/25/22 14:14 Pain Level 8 07/25/22 14:14
[2022-07-25 14:39] LABS: Abs Immature Grans 0.07 10^3/uL (0.0-0.06); Absolute Basophil Count 0.06 10^3/uL (0.0-0.2); Absolute Eosinophil Count 0.01 10^3/uL (0.0-0.7); Absolute Lymphocyte Count 1.91 10^3/uL (1.2-3.4); Absolute Monocyte Count 0.74 10^3/uL (0.1-0.8); Absolute Neutrophil Count 12.09 10^3/uL (1.2-6.7); Basophils % 0.4; Eosinophils % 0.1; HGB 13.6 g/dL (11.2-15.7); Immature Grans % 0.5; Lymphocytes % 12.8; MCH 30.6 pg (27.0-33.0); MCHC 34.9 % (32.0-36.0); MCV 88 fL (80-95); MPV 10.5 fL (8.0-11.0); Neutrophils % 81.2; Platelet Count 369 10^3/uL (130-400); RBC 4.45 10^6/uL (3.93-5.22); RDW 15.2 % (11.7-14.6); RDW-SD 48.8 fL; WBC 14.89 10^3/uL (4.4-10.8)
[2022-07-25 14:55] LABS: ALT 25 U/L (14-59); AST 18 U/L (15-37); Albumin 3.7 g/dL (3.4-5.0); Alkaline Phosphatase 109 U/L (46-116); Anion Gap 9.7 mmol/L (3-11); BUN 8 mg/dL (7-18); Bilirubin, Total 0.3 mg/dL (0.2-1.0); CO2 25.3 mmol/L (21.0-32.0); CREATININE 0.7 mg/dL (0.55-1.02); Calcium 8.8 mg/dL (8.5-10.1); Chloride 103 mmol/L (98-107); Estimated GFR 107.28 (mL/min/1.73m2); Glucose 128 mg/dL (74-106); Lipase 66 U/L (16-77); Potassium 3.3 mmol/L (3.5-5.1); Sodium 138 mmol/L (136-145); Total Protein 7.4 g/dL (6.4-8.2); Troponin I < 50 ng/L (<or=60)
[2022-07-25] MEDS: Droperidol 5 MG/2 ML VIAL IVP (14:58)
[2022-07-25] MEDS: Normal Saline 1,000 ML 1000 ML IV (14:58)
--- NOTE | 2022-07-25 15:16 | NUR.NOTE ---
pt states her nausea has not improved after meds. pt has not vomited while in ED
[2022-07-25 15:19] LABS: COVID-19 PCR Negative (Negative); Influenza A PCR Negative (Negative); Influenza B PCR Negative (Negative); RSV PCR Negative (Negative)
[2022-07-25 15:20] LABS: Source Nasopharynx
[2022-07-25 16:13] LABS: Bilirubin Negative (Negative); Blood Negative (Negative); Clarity Clear (Clear); Glucose Negative (Negative); Ketones >=160 mg/dL (Negative); Leukocyte Esterase Negative (Negative); Nitrite Negative (Negative); Specific Gravity 1.025 (1.005-1.025); Urobilinogen 0.2 mg/dL (Up to 0.2); pH 7.5 (5-8)
[2022-07-25] MEDS: Mylanta Suspension 30 ML CUP PO (16:35)
[2022-07-25 17:09] VITALS: PULSE 89; RESP 18; O2SAT 98
== END 2022-07-25 17:09 | disposition home or self-care (01) ==
PROVIDERS: Emergency Provider Emergency Medicine; PCP Family Medicine
DX: R11.2 Nausea with vomiting, unspecified (principal); D72.829 Elevated white blood cell count, unspecified; R10.9 Unspecified abdominal pain; R10.814 Left lower quadrant abdominal tenderness; Z87.19 Personal history of other diseases of the digestive system; Z20.822 Contact with and (suspected) exposure to COVID-19; Z90.49 Acquired absence of other specified parts of digestive tract
CPT/HCPCS: 36415; 80053; 83690; 87637; 93005; 96361; 96374; 99284; 81003; 83735; 84484; 85025; 93010; J1790

== ENCOUNTER 2022-07-27 07:38 | Outpatient (REF) | payer MEDICAID, SELFPAY ==
[2022-07-27 09:47] LABS: C Diff PCR Negative (Negative)
[2022-07-28 11:23] LABS: Campylobacter PCR Negative (Negative); Salmonella PCR Negative (Negative); Shiga Toxin PCR Negative (Negative); Shigella/Enteroinvasive Ecoli Negative (Negative)
== END 2022-07-27 07:39 | disposition home or self-care (01) ==
LOC: LBN 07:38
PROVIDERS: PCP Family Medicine; Visit Provider Emergency Medicine
DX: R19.7 Diarrhea, unspecified (principal)
CPT/HCPCS: 87493; 87505

== ENCOUNTER 2022-10-04 19:07 | Emergency (ER) | payer MEDICAID, SELFPAY ==
[2022-10-04 19:10] VITALS: PULSE 82; RESP 18; TEMP 36.7; O2SAT 98
[2022-10-04 19:11] VITALS: BP 130/87
--- NOTE | 2022-10-04 19:50 | ED.GENADUL_ITS ---
Discharge Plan Disposition Patient Disposition: Home Discharge Details Clinical Impression: Gastroenteritis, Nausea vomiting and diarrhea Primary Care Provider: Iraida Kumar ED Provider: Shanel Posada Home Meds and New Rx's Prescriptions: New metoclopramide HCl [Reglan] 5 mg tablet 5 mg PO QACHS PRN (Reason: nausea and vomiting) Qty: 10 0RF Rx Instructions: Take one tablet before meals and at bedtime as needed for nausea. Continued triamcinolone acetonide 0.5 % cream 1 applic topical BID Qty: 45 2RF ferrous sulfate [FeroSul] 325 mg (65 mg iron) tablet 325 mg PO DAILY Qty: 30 3RF Patient Comments: Pt states she doesn't take albuterol sulfate [ProAir HFA] 90 mcg/actuation HFA aerosol inhaler 1 puff Inhalation Q4H PRN Qty: 3 1RF omeprazole 40 mg capsule,delayed release(DR/EC) 40 mg PO BID Qty: 180 1RF zolpidem 5 mg tablet 5 mg PO QHS PRN duloxetine 30 mg capsule,delayed release(DR/EC) 30 mg PO DAILY Qty: 90 3RF Spiriva Respimat 1.25 mcg/actuation mist 2 puff inhalation Q24H Qty: 12 3RF acetaminophen [Tylenol] 325 mg Tablet 650 mg PO Q4H PRN PRNQty: 30 0RF ondansetron 4 mg tablet,disintegrating 4 mg PO Q6H PRN (Reason: nausea and vomiting) Qty: 14 0RF No Action sucralfate 100 mg/mL suspension 10 ml PO QAC 30 Days Qty: 900 0RF Discharge Instructions Instructions: Gastroenteritis (ED), Acute Nausea and Vomiting (ED) Additional Instructions: Take the nausea medications as directed 20 minutes before eating or drinking anything. sips of Gatorade or estrella clark. Advance to solid foods as tolerated. Practice a bland diet, no spicy foods nothing fatty no dairy. Follow up with primary care provider in 3-5 days. Return to ED sooner if any worsening or concerns. Increase oral fluids. Referrals: Iraida Kumar MD [Primary Care Provider] - 3 days Discharge Data Discharge Date/Time-TO BE ENTERED AT DEPARTURE: 10/05/22 00:07 Medical Decision Making 46-year-old female presents to the ER with chief complaint of nausea vomiting since Tuesday left quadrant abdominal pain. She does have a prescription for Zofran at home which she reports is not helping. Upon initial eval she is having dry heaves and is having active emesis in the bag, she is incontinent of urine. She does have a past medical history of diverticulosis, gastritis hiatal hernia. Surgical history includes cholecystectomy and bilateral oophorectomy. Work-up ordered including CBC CMP lipase, urinalysis Blood cell count shows leukocytosis with white blood cells at 23.89 patient does have chronic leukocytosis neutrophils are 19.42 3: Patient reevaluation, she reports that the nausea vomiting is a little bit better and abdominal pain is somewhat improved. Sodium is 133 potassium 3.4 chloride 96 anion gap 13.1 glucose 110 magnesium is high at 2.5 urinalysis shows greater than 160 ketones 100 protein large blood small bilirubin 10-20 RBCs. No evidence of infection and squamous contamination. Will do CT abdomen pelvis. 8: Patient requesting water, will PO challenge. CT results are noted below. No SBO. We will plan to discharge patient home pending successful p.o. challenge with [facility] and follow-up with PCP. Patient does have Zofran at home. Consider giving patient different nausea medication such as Reglan. On patient re-eval, no further emesis noted, she is c/o of small amount or nausea, will give an additional dose of IV antiemetic prior to discharge. Patient remained hemodynamically stable alert and oriented throughout the remainder of her stay. This text was generated using [employer] dictation system, please disregard any oddities of phrase or misspellings. Imaging Data Radiologic Study: Imaging: CT Scan Radiologist's impression: Diaphragm: A small hiatal hernia is noted. Liver: Unremarkable liver. No mass identified. Gallbladder and bile ducts: The patient is status post cholecys tectomy. Pancreas: No ductal dilation. No pancreatic lesion seen. Spleen: There has been slight interval increase in size of splenic cystic structure measuring 2.2 x 2.0 x 1.9 cm, previously 2.1 x 1.6 x 1.5 cm. Adrenal glands: The adrenal glands are unremarkable. No defined mass. Kidneys and ureters: The kidneys are unremarkable. No hydronephrosis. Stomach and bowel: No obstruction. No mucosal thickening. Nonspecific fluid is noted throughout the ascending and transverse colon. Appendix: No evidence of appendicitis. ntraperitoneal space: No free air. No significant fluid collection. Vasculature: No abdominal aortic aneurysm. Lymph nodes: No enlarged lymph nodes. Urinary bladder: Unremarkable urinary bladder. Reproductive: Cystic structures again noted in the region of the cervix, possibly nabothian cysts. Bones/joints: No acute fracture. Soft tissues: No significant subcutaneous soft tissue abnormality. IMPRESSION: 1. No evidence of bowel obstruction. 2. Nonspecific fluid noted throughout the ascending and transverse colon. Correlate with clinical findings for any associated inflammatory change. 3. Minimal interval increase in size of simple cystic structure in the spleen. Thank you for allowing us to participate in the care of your patient. Lab Data Lab results reviewed: Yes I reviewed the patient's lab results. Labs: Laboratory Tests Range/Units 10/04/22 10/04/22 10/04/22 20:10 20:10 20:22 WBC (4.4-10.8) 10^3/uL 23.89 H RBC (3.93-5.22) 10^6/uL 5.18 Hgb (11.2-15.7) g/dL 15.5 Hct (36.0-46.0) % 44.3 MCV (80-95) fL 86 MCH (27.0-33.0) pg 29.9 MCHC (32.0-36.0) % 35.0 RDW (11.7-14.6) % 13.3 Plt Count (130-400) 10^3/uL 419 H MPV (8.0-11.0) fL 10.0 Immature Gran % 0.7 Neutrophils % 81.3 Lymphocytes % 11.6 Monocytes % 6.2 Eosinophils % 0.0 Basophils % 0.2 Nucleated RBC % (0.0-0.3) % 0.0 Absolute Neutrophils (1.2-6.7) 10^3/uL 19.42 H Absolute Lymphocytes (1.2-3.4) 10^3/uL 2.77 Absolute Monocytes (0.1-0.8) 10^3/uL 1.48 H Absolute Eosinophils (0.0-0.7) 10^3/uL 0.00 Absolute Basophils (0.0-0.2) 10^3/uL 0.05 Sodium (136-145) mmol/L 133 L Potassium (3.5-5.1) mmol/L 3.4 L Chloride (98-107) mmol/L 96 L Carbon Dioxide (21.0-32.0) mmol/L 23.9 Anion Gap (3-11) mmol/L 13.1 H BUN (7-18) mg/dL 10 Creatinine (0.55-1.02) mg/dL 0.7 Est GFR (CKD-EPI 2020) (mL/min/1.73m2) 107.28 Glucose (74-106) mg/dL 110 H Calcium (8.5-10.1) mg/dL 9.0 Magnesium (1.8-2.4) mg/dL 2.5 H Total Bilirubin (0.2-1.0) mg/dL 0.7 AST (15-37) U/L 32 ALT (14-59) U/L 42 Alkaline Phosphatase (46-116) U/L 125 H Total Protein (6.4-8.2) g/dL 8.3 H Albumin (3.4-5.0) g/dL 4.0 Lipase (16-77) U/L 47 Urine Color (Yellow) Yellow Urine Clarity (Clear) Clear Urine pH (5-8) 7.0 Ur Specific [place] (1.005-1.025) 1.020 Urine Protein (Negative) mg/dL 100 H Urine Ketones (Negative) mg/dL >=160 H Urine Blood (Negative) Large H Urine Nitrite (Negative) Negative Urine Bilirubin (Negative) Small H Urine Urobilinogen (Up to 0.2) mg/dL 0.2 Ur Leukocyte Esterase (Negative) Negative Urine RBC (0-2) HPF 10-20 H Urine WBC (0-5) HPF 0-2 Ur Epithelial Cells (Negative) HPF Many Urine Crystals (Negative) HPF Negative Urine Bacteria (Negative) HPF Few Urine Casts (Negative) LPF Negative Urine Mucus (Negative) Trace Ur Culture Indicated? No/Sq. Contamination Urine Glucose (Negative) mg/dL Negative HPI General Mode of arrival: ambulatory . Date/Time Provider Initiated Documentation: 10/04/22 19:20 . Limitations to Documentation: no limitations . Information obtained by: patient, RN notes reviewed and old records reviewed . HPI Narrative: 46-year-old female presents to the ER with chief complaint of nausea vomiting since Tuesday left quadrant abdominal pain. She does have a prescription for Zofran at home which she reports is not helping. Upon initial eval she is having dry heaves and is having active emesis in the bag, she is incontinent of urine. She does have a past medical history of diverticulosis, gastritis hiatal hernia. Surgical history includes cholecystectomy and bilateral oophorectomy. Related Data Home Medications Medication Instructions Recorded Confirmed acetaminophen 325 mg tablet 650 mg PO Q4H PRN PRN #30 tabs 06/16/19 10/06/22 (Tylenol) triamcinolone acetonide 0.5 % 1 applic topical BID #45 grams 02/26/20 10/06/22 topical cream ferrous sulfate 325 mg (65 mg 325 mg PO DAILY #30 tabs 01/16/21 10/06/22 iron) tablet (FeroSul) zolpidem 5 mg tablet 5 mg PO QHS PRN 04/08/21 10/06/22 albuterol sulfate 90 mcg/actuation 1 puff inhalation Q4H PRN ##3 05/29/21 10/06/22 aerosol inhaler (ProAir HFA) duloxetine 30 mg capsule,delayed 30 mg PO DAILY #90 caps 06/30/22 10/06/22 release tiotropium bromide 1.25 2 puff inhalation Q24H #12 grams 07/02/22 10/06/22 mcg/actuation mist for inhalation (Spiriva Respimat) ondansetron 4 mg disintegrating 4 mg PO Q6H PRN nausea and 07/23/22 10/06/22 tablet vomiting #14 tabs omeprazole 40 mg capsule,delayed 40 mg PO BID #180 tab-caps 08/04/22 10/06/22 release metoclopramide HCl 5 mg tablet 5 mg PO QACHS PRN nausea and 10/04/22 10/06/22 (Reglan) vomiting #10 tabs sucralfate 100 mg/mL oral 10 ml PO QAC 1 month #900 mL 10/06/22 10/06/22 suspension Previous Rx's Medication Instructions Recorded acetaminophen 325 mg tablet 650 mg PO Q4H PRN PRN #30 tabs 06/16/19 (Tylenol) triamcinolone acetonide 0.5 % 1 applic topical BID #45 grams 02/26/20 topical cream ferrous sulfate 325 mg (65 mg 325 mg PO DAILY #30 tabs 01/16/21 iron) tablet (FeroSul) albuterol sulfate 90 mcg/actuation 1 puff inhalation Q4H PRN ##3 05/29/21 aerosol inhaler (ProAir HFA) duloxetine 30 mg capsule,delayed 30 mg PO DAILY #90 caps 06/30/22 release tiotropium bromide 1.25 2 puff inhalation Q24H #12 grams 07/02/22 mcg/actuation mist for inhalation (Spiriva Respimat) ondansetron 4 mg disintegrating 4 mg PO Q6H PRN nausea and 07/23/22 tablet vomiting #14 tabs omeprazole 40 mg capsule,delayed 40 mg PO BID #180 tab-caps 08/04/22 release metoclopramide HCl 5 mg tablet 5 mg PO QACHS PRN nausea and 10/04/22 (Reglan) vomiting #10 tabs sucralfate 100 mg/mL oral 10 ml PO QAC 1 month #900 mL 10/06/22 suspension Allergies Allergy/AdvReac Type Severity Reaction Status Date / Time hydrocodone AdvReac Severe Restlessnes Verified 10/06/22 15:13 s nicotine AdvReac Severe Caused Verified 10/06/22 15:13 pain down extremity ropinirole AdvReac Intermediate Insomnia, Unverified 10/06/22 15:13 pounding heart amoxicillin AdvReac thrush Verified 10/06/22 15:13 bupropion [From Wellbutrin] AdvReac jitters Verified 10/06/22 15:13 gabapentin AdvReac sob Verified 10/06/22 15:13 tramadol AdvReac restlessnes Verified 10/06/22 15:13 s varenicline [From Chantix] AdvReac vomiting Verified 10/06/22 15:13 General Stated Complaint: Abd Prob ROSI: 3 Review of Systems All systems reviewed & are unremarkable except as noted in HPI and below Gastrointestinal Gastrointestinal: Reports abdominal pain, Reports nausea and Reports vomiting Genitourinary Genitourinary: Reports as per HPI PFSH All Active Problems (Updated 10/06/22 @ 15:42 by Iraida Kumar MD) Anxiety (Chronic) Working with Aubrey Gabriel Chronic obstructive lung disease (Chronic) Diarrhea (Chronic) chronic diarrhea Gastroesophageal reflux disease (Chronic) per EGD-01/16 Hyperlipidemia (Chronic) Insomnia disorder (Chronic 05/01/15) Migraine (Chronic 07/06/11) 2 headaches / month; triggers are noxious smells Smoker (Chronic) started age 16; 1 ppd Chronic pain (Chronic) Improved with duloxetine Sacroiliac joint dysfunction of right side (Chronic) Leukocytosis (Chronic) chronic, prior eval with hematology at [facility] Nocturnal myoclonus (Chronic) no improvement with Ropinirole. Gastroenteritis (Acute) Medical History Abdominal pain (08/12/14) extensive workup at [facility] [place] 2010- no specific cause Abnormal auditory perception of both ears (04/04/17) Acute gastritis REACTIVE GASTROPATHY 01/19/10- DR. ADAMS PER EGD 09/01/16 DR. LOWRY-SEVERE GASTRITIS WITH AN ULCER Allergic eosinophilia INTRAEPITHELIAL EOSINOPHILS, 01/19/10- Rima ADAMS PER EGD Diverticulosis (09/01/16) with history of diverticulitis DUB (dysfunctional uterine bleeding) Hiatal hernia (09/01/16) Uterine fibroid Surgical History History of bilateral salpingo-oophorectomy Status post cholecystectomy Family History Mother , 69 Essential hypertension Heart disease Hyperlipidemia Myocardial infarction AFTER SURGERY AND BLEEDING W/ BLOOD CLOT TO THE HEART. Father Alcohol abuse Personal history of malignant neoplasm THROAT/LIVER/LUNG Brother Alcohol abuse Personal history of malignant neoplasm LIVER Grandfather Personal history of malignant neoplasm Heart disease Grandmother Essential hypertension Stroke Grandmother Personal history of malignant neoplasm Social History Smoking/Tobacco Use Status: Current every day Tobacco Type: cigarettes Smoking packs per day: 1 Smoking cigarettes per day: 20.0 Years smoked: 24 Smoking pack- years: 24.00 Tobacco: How many years used: 26 Quit status: considering quitting Second Hand Exposure: Yes Counseling given: provider counseling Smoking risk assessment performed?: Yes Alcohol Intake: never Drug use: Occasionally Substance use type: marijuana Caregiver/Support person: No Household members: spouse and children Housing: house Number of Children: 2 Communication Needs: None Do you need help understanding health information?: Never current occupation: works at home. Pets and animals: Yes Pets and animals: cat(s), dog(s) and farm animals Sexually active: Yes Do you think of yourself as: straight/heterosexual Current gender identity: decline to answer What is your relationship status?: How often do you talk on the phone with friends or family?: never How often do you get together with friends or relatives?: decline to answer How often do you attend orthodoxy or orthodoxy services?: decline to answer Do you belong to any clubs or organized social groups?: no Panel score (0-1 are the most socially isolated patients): 1 What type of physical activity do you participate in: none Duration: 15-30 minutes/day Frequency: 3-4 times per week Renetta/Christian: None Seatbelt use: always Helmet use: Yes Drive intox or ride w/intox electric train driver: No Do you feel safe at home: Yes Do you feel safe in your relationship?: Yes Additional Social history: Enjoys gardening. Exam Narrative Exam Narrative: Constitutional: Alert and oriented x3. Appears older than stated age. Normal body habitus. Head: Normocephalic, no trauma. Eyes: Pupils PERRL, Red reflex noted, EOM's intact. Eyelids symmetrical without lesions, discharge, or swelling. ENT: Bilateral TM's WNL, External ear normal to inspection, no mastoid TTP, swelling, or erythema, Nasal turbinates WNL, no nasal discharge. Normal dentition, Posterior pharynx WNL, no exudate. Chest: RRR, Normal S1, S2, distal pulses intact. Resp: Lungs clear to auscultation bilaterally, no wheezes, rales, or rhonchi. Abdomen: Soft, non-distended, Normoactive bowel sounds all 4 quads. Musculoskeletal: Normal gait, 5/5 strength to all four extremities. Skin: No suspicious rashes or lesions. Capillary refill less than 2 sec. Neurologic: Cranial nerves II-XII intact. Alert and oriented x 3. Motor: No deficits noted. Sensory: Intact bilaterally all 4 extremities. Reflexes: DTR's intact bilaterally.. Hematologic/Lymphatic: No ecchymosis, no lymphadenopathy. Course Vital Signs Vital signs: Vital Signs Temperature 36.7 C 10/04/22 19:10 Pulse 82 10/04/22 19:10 Respiratory Rate 18 10/04/22 19:10 Pulse Oximetry 98 10/04/22 19:10 Temperature 36.7 C 10/04/22 19:10 Temperature Source Oral 10/04/22 19:10 Pulse 82 10/04/22 19:10 Respiratory Rate 18 10/04/22 19:10 Respiratory Effort Normal, Non-Labored 10/04/22 19:11 Blood Pressure 130/87 10/04/22 19:11 Pulse Oximetry 98 10/04/22 19:10 Oxygen Delivery Method Room Air 10/04/22 19:10 Oxygen Flow Rate 0 10/04/22 19:10
[2022-10-04 20:16] LABS: Abs Immature Grans 0.16 10^3/uL (0.0-0.06); Absolute Basophil Count 0.05 10^3/uL (0.0-0.2); Absolute Monocyte Count 1.48 10^3/uL (0.1-0.8); Basophils % 0.2; HCT 44.3 % (36.0-46.0); HGB 15.5 g/dL (11.2-15.7); Immature Grans % 0.7; Lymphocytes % 11.6; MCH 29.9 pg (27.0-33.0); MCV 86 fL (80-95); Monocytes % 6.2; Neutrophils % 81.3; Platelet Count 419 10^3/uL (130-400); RBC 5.18 10^6/uL (3.93-5.22); RDW 13.3 % (11.7-14.6); RDW-SD 41.4 fL; WBC 23.89 10^3/uL (4.4-10.8)
[2022-10-04 20:27] LABS: Absolute Lymphocyte Count 2.77 10^3/uL (1.2-3.4); Absolute Neutrophil Count 19.42 10^3/uL (1.2-6.7)
[2022-10-04 20:34] LABS: ALT 42 U/L (14-59); AST 32 U/L (15-37); Alkaline Phosphatase 125 U/L (46-116); Anion Gap 13.1 mmol/L (3-11); BUN 10 mg/dL (7-18); Bilirubin, Total 0.7 mg/dL (0.2-1.0); CO2 23.9 mmol/L (21.0-32.0); CREATININE 0.7 mg/dL (0.55-1.02); Chloride 96 mmol/L (98-107); Estimated GFR 107.28 (mL/min/1.73m2); Glucose 110 mg/dL (74-106); Lipase 47 U/L (16-77); Magnesium 2.5 mg/dL (1.8-2.4); Potassium 3.4 mmol/L (3.5-5.1); Sodium 133 mmol/L (136-145); Total Protein 8.3 g/dL (6.4-8.2)
[2022-10-04 20:35] LABS: Bilirubin Small (Negative); Blood Large (Negative); Clarity Clear (Clear); Glucose Negative (Negative); Ketones >=160 mg/dL (Negative); Leukocyte Esterase Negative (Negative); Nitrite Negative (Negative); Urobilinogen 0.2 mg/dL (Up to 0.2)
[2022-10-04] MEDS: Ondansetron 4 MG/2 ML VIAL IVP (20:37)
[2022-10-04] MEDS: Normal Saline 1,000 ML 1000 ML IV (20:37)
[2022-10-04 20:45] LABS: Bacteria Few HPF (Negative); C & S Indicated? No/Sq. Contamination; Casts Negative LPF (Negative); Crystals Negative HPF (Negative); Epithelial Cells Many HPF (Negative); Mucus Trace (Negative); WBC 0-2 HPF (0-5)
--- NOTE | 2022-10-04 21:00 | DI.CT_ITS ---
Exam(s) CT ABDOMEN PELVIS W EXAM: CT ABDOMEN PELVIS W CLINICAL HISTORY: Nausea, Vomiting, Left side Abdominal pain. TECHNIQUE: Imaging Protocol: Axial computed tomography images with coronal and sagittal reformatted images were created and reviewed CONTRAST MATERIAL: Intravenous: Omnipaque-350 100cc Oral: None COMPARISON: CT ABD PELVIS WITH CONTRAST from 09/04/[address] ABDOMEN PELVIS W from 02/15/[address] ABDOMEN PELVIS W from 07/23/2022 FINDINGS: VISUALIZED LUNG BASES: No nodules nor pleural effusions evident. ABDOMEN: There is no ascites. Small-moderate size hiatal hernia again noted. LIVER: There are no focal hepatic lesions evident. No dilated intrahepatic ducts. GALLBLADDER/BILIARY: Gallbladder again noted be surgically absent. CBD is not dilated. PANCREAS: There is a benign-appearing 5 x 4 millimeter hypodensity in the superior aspect of the panc reatic tail. Best seen on the coronal images. Another smaller hypodensity in the pancreas is seen i n the body measuring 3 mm. These findings are unchanged from the CT scan of July 2022. Also unchan ged from CT scan of February 2020. Therefore benign. SPLEEN: Spleen size is normal. In the superior aspect of the spleen there is a well-defined benign-a ppearing cyst measuring 2.2 by 2.1 by 1.9 cm. This cyst was not evident in the spleen on CT scan of February 2020 and has slightly increased in size from the most recent CT scan July 2022. No other sp lenic lesions. Splenic and portal veins are patent. ADRENALS: Bilateral thickened adrenal glands again noted, most probably hyperplasia. KIDNEYS:No cysts evident. No solid renal masses. No calculi nor hydronephrosis.. ABDOMINAL AORTA: Abdominal aorta is not enlarged. LYMPH NODES:There is no retroperitoneal nor paraaortic adenopathy. ABDOMINAL WALL: No evidence of significant anterior abdominal wall nor inguinal hernia. GI: There is no evidence of bowel obstruction, free air, nor abscess. PELVIS: GI: No evidence of appendicitis.There is sigmoid diverticuli but no evidence of acute diverticulitis. LYMPH NODES: There is no intrapelvic nor inguinal adenopathy. REPRODUCTIVE: There is a cyst in the right ovary measuring 1.8 by 1.7 cm, possibly follicular. Small er cyst in the left ovary measuring 0.9 x 0.6 cm noted, most probably follicular. Uterus is antevert ed. Nabothian cysts noted in the upper cervix. Endometrium appears somewhat heterogeneous. Can be further studied with ultrasound. URINARY BLADDER: No calculi nor obvious masses evident OSSEOUS: No fractures and no significant osseous lesions. IMPRESSION: 1. Previous cholecystectomy. The biliary tree is not dilated. 2. Stable benign-appearing pancreatic findings as described above. Unchanged from CT scan of February 2020. 3. Single cyst in the spleen which was not evident in February 2020. It is slightly increased in size from the more recent CT scans. Nevertheless has the appearance of a simple cyst. No other focal sp lenic findings. Spleen size is normal. 4. Heterogeneous appearance of the endometrium of the uterus. Recommend follow-up ultrasound better evaluation. There cysts in both ovaries which are probably follicular. The largest is in the right ovary measuring 18 x 17 mm. No free fluid. Sigmoid diverticuli but no evidence of acute diverticulitis. Fluid-filled bowel loops both large and small bowel. No obvious bowel obstruction. RADIATION DOSE DELIVERED: 1,017.11mGy.cm Total DLP DATA REPOSITORY: All CT scans at this facility are submitted to the National Radiology Data Registry (NRDR) Dose Index Registry (DIR) with the [employer] (ACR). RADIATION OPTIMIZATION: All CT scans at this facility use at least one of these dose optimization te chniques: automated exposure control; mA and/or kV adjustment per patient size (includes targeted exa ms where dose is matched to clinical indication); or iterative reconstruction.
[2022-10-04] MEDS: FAMOTIDINE 20 MG in Normal Saline 100 ML 400 MG IVPB (21:38)
[2022-10-04] MEDS: Omnipaque 350 MG/ML 100 ML BTL IJ (21:58)
[2022-10-04] MEDS: Normal Saline Flush 10 ML SYR IVP (21:59)
[2022-10-04] MEDS: Normal Saline - Diluent 50 ML VIAL IJ (22:00)
--- NOTE | 2022-10-04 22:42 | DI.VRAD_ITS ---
PROCEDURE INFORMATION: Exam: CT Abdomen And Pelvis With Contrast Exam date and time: 10/04/2022 10:02 PM Age: 46 years old Clinical indication: Nausea and vomiting; Abdominal pain; Localized; Patient HX: Nausea, vomiting, left sided abd pain TECHNIQUE: Imaging protocol: Computed tomography of the abdomen and pelvis with contrast. Radiation optimization: All CT scans at this facility use at least one of these dose optimization techniques: automated exposure control; mA and/or kV adjustment per patient size (includes targeted exams where dose is matched to clinical indication); or iterative reconstruction. Contrast material: OMNIPAQUE 350; Contrast volume: 100 ml; Contrast route: INTRAVENOUS (IV); COMPARISON: CT ABDOMEN PELVIS W 07/23/2022 4:29 PM FINDINGS: Diaphragm: A small hiatal hernia is noted. Liver: Unremarkable liver. No mass identified. Gallbladder and bile ducts: The patient is status post cholecystectomy. Pancreas: No ductal dilation. No pancreatic lesion seen. Spleen: There has been slight interval increase in size of splenic cystic structure measuring 2.2 x 2.0 x 1.9 cm, previously 2.1 x 1.6 x 1.5 cm. Adrenal glands: The adrenal glands are unremarkable. No defined mass. Kidneys and ureters: The kidneys are unremarkable. No hydronephrosis. Stomach and bowel: No obstruction. No mucosal thickening. Nonspecific fluid is noted throughout the ascending and transverse colon. Appendix: No evidence of appendicitis. Intraperitoneal space: No free air. No significant fluid collection. Vasculature: No abdominal aortic aneurysm. Lymph nodes: No enlarged lymph nodes. Urinary bladder: Unremarkable urinary bladder. Reproductive: Cystic structures again noted in the region of the cervix, possibly nabothian cysts. Bones/joints: No acute fracture. Soft tissues: No significant subcutaneous soft tissue abnormality. IMPRESSION: 1. No evidence of bowel obstruction. 2. Nonspecific fluid noted throughout the ascending and transverse colon. Correlate with clinical findings for any associated inflammatory change. 3. Minimal interval increase in size of simple cystic structure in the spleen. Dictated and Authenticated by: Stephy Gallardo MD. Ordering:KACIE Ugarte MD
[2022-10-04] MEDS: Metoclopramide 10 MG/2 ML VIAL IVP (23:24)
== END 2022-10-05 00:07 | disposition home or self-care (01) ==
PROVIDERS: Emergency Provider Registered Nurse Emergency; PCP Family Medicine
DX: K52.9 Noninfective gastroenteritis and colitis, unspecified (principal); R11.2 Nausea with vomiting, unspecified; R19.7 Diarrhea, unspecified
CPT/HCPCS: 36415; 80053; 81025; 83690; 96361; 96365; 96375; 99285; 74177; 81003; 81015; 83735; 85025; 99284; J2405; J2765; J3490

== ENCOUNTER 2022-11-04 02:21 | Outpatient (CLI) | payer MEDICAID, SELFPAY ==
--- NOTE | 2022-11-04 12:40 | DI.MAMMO_ITS ---
Exam(s) MAMMO SCREENING EXAM: MAMMO SCREENING CLINICAL HISTORY: screening Z12.39 FOR BREAST CANCER TECHNIQUE: Mammograms were interpreted according to the usual protocol including computer analysis w [employer] CAD system, tomosynthesis and C-view imaging. COMPARISON: 2016 and 2020 FINDINGS: The breasts are composed of scattered fibroglandular densities, Breast Density category B. No suspicious masses or suspicious microcalcifications are seen. No skin thickening or abnormal axillary lymph nodes are seen. There has been no significant change from prior exams. IMPRESSION: BI-RADS Category 1, Negative mammogram Yearly screening mammography is recommended. Breast Density - Category B, scattered fibroglandular densities. A negative radiographic report should not delay biopsy if a dominant or clinically suspicious mass is present. Up to ten percent of cancers are not identified on mammography. A negative report may reinforce clinical impression. Adenosis and dense breasts may obscure an underlying neoplasm. False positive reports average 6 to 10%. Patient will receive a letter notifying them of these results.
== END 2022-11-04 02:41 ==
LOC: DI 02:21
PROVIDERS: PCP Family Medicine; Visit Provider Family Medicine
DX: Z12.31 Encounter for screening mammogram for malignant neoplasm of breast (principal)
CPT/HCPCS: 77063; 77067

== ENCOUNTER 2022-12-20 19:37 | Emergency (ER) | payer MEDICAID, SELFPAY ==
[2022-12-20 19:49] VITALS: BP 151/86; PULSE 72; RESP 26; TEMP 37.2; O2SAT 99
--- NOTE | 2022-12-20 20:30 | DI.CT_ITS ---
Exam(s) CT ABDOMEN PELVIS W EXAM: CT ABDOMEN PELVIS W CLINICAL HISTORY: Abdominal pain, nausea vomiting. TECHNIQUE: Imaging Protocol: Axial computed tomography images with coronal and sagittal reformatted images were created and reviewed CONTRAST MATERIAL: Intravenous: Omnipaque 350 Contrast volume:100 ml Oral: yes / no COMPARISON: No exams were available for comparison FINDINGS: ABDOMEN: Lung Bases: Normal where visualized. Liver: Normal density. No measurable mass. Gallbladder and biliary tract: Status post cholecystectomy. No radiodense calculus or dilation. Pancreas: Normal density, no abnormal calcifications or inflammatory process. Spleen: Cyst again noted. Kidneys: Normal size, contour and axis. No radiodense stones or obstructive uropathy. No suspicious m asses seen. Adrenal glands: No masses seen. Abdominal Aorta: Abdominal portion non-dilated. Atherosclerotic changes. Soft tissues: Unremarkable. PELVIS: Bladder: No gross wall thickening. No calculi.No focal mass. Bowel: No obstruction. No bowel wall thickening. Appendix normal.mild diverticulosis Peritoneal cavity: No ascites, collection or mesenteric inflammatory response. Bones: Unremarkable for age. Mildly enlarged uterus with small fibroid. Nabothian cysts. Ovaries unremarkable. Lymph nodes: Unremarkable. Impression: No acute abnormality. RADIATION DOSE DELIVERED: 865.2mGy.cm Total DLP DATA REPOSITORY: All CT scans at this facility are submitted to the National Radiology Data Registry (NRDR) Dose Index Registry (DIR) with the [employer] (ACR). RADIATION OPTIMIZATION: All CT scans at this facility use at least one of these dose optimization te chniques: automated exposure control; mA and/or kV adjustment per patient size (includes targeted exa ms where dose is matched to clinical indication); or iterative reconstruction.
[2022-12-20 20:47] LABS: Abs Immature Grans 0.15 10^3/uL (0.0-0.06); Absolute Lymphocyte Count 2.57 10^3/uL (1.2-3.4); Basophils % 0.1; HCT 41.3 % (36.0-46.0); HGB 14.1 g/dL (11.2-15.7); Immature Grans % 0.6; Lymphocytes % 10.7; MCH 29.7 pg (27.0-33.0); MCHC 34.1 % (32.0-36.0); MCV 87 fL (80-95); Monocytes % 6.3; Neutrophils % 82.3; Platelet Count 429 10^3/uL (130-400); RBC 4.75 10^6/uL (3.93-5.22); RDW 14.5 % (11.7-14.6); WBC 24.02 10^3/uL (4.4-10.8)
[2022-12-20 20:50] LABS: Absolute Basophil Count 0.02 10^3/uL (0.0-0.2); Absolute Monocyte Count 1.51 10^3/uL (0.1-0.8); Absolute Neutrophil Count 19.77 10^3/uL (1.2-6.7)
[2022-12-20] MEDS: Ondansetron 4 MG/2 ML VIAL IVP (20:51)
[2022-12-20] MEDS: Normal Saline 1,000 ML 1000 ML IV ×2 (20:51→23:05)
[2022-12-20 20:56] LABS: ALT 27 U/L (14-59); AST 23 U/L (15-37); Albumin 3.9 g/dL (3.4-5.0); Alkaline Phosphatase 123 U/L (46-116); Anion Gap 11.4 mmol/L (3-11); BUN 11 mg/dL (7-18); Bilirubin, Total 0.5 mg/dL (0.2-1.0); CO2 26.6 mmol/L (21.0-32.0); CREATININE 0.7 mg/dL (0.55-1.02); Chloride 96 mmol/L (98-107); Estimated GFR 106.62 (mL/min/1.73m2); Glucose 113 mg/dL (74-106); Lipase 41 U/L (16-77); Magnesium 2.3 mg/dL (1.8-2.4); Potassium 3.3 mmol/L (3.5-5.1); Sodium 134 mmol/L (136-145)
[2022-12-20] MEDS: Normal Saline - Diluent 50 ML VIAL IJ (21:05)
[2022-12-20] MEDS: Omnipaque 350 MG/ML 100 ML BTL IJ (21:05)
[2022-12-20 21:06] LABS: Diff Comment Diff Reviewed
[2022-12-20 21:07] LABS: RBC Morphology Normal
--- NOTE | 2022-12-20 21:46 | DI.VRAD_ITS ---
PROCEDURE INFORMATION: Exam: CT Abdomen And Pelvis With Contrast Exam date and time: 12/20/2022 9:12 PM Age: 47 years old Clinical indication: Other: Abdominal pain, nasuea, vomitting TECHNIQUE: Imaging protocol: Computed tomography of the abdomen and pelvis with contrast. Radiation optimization: All CT scans at this facility use at least one of these dose optimization techniques: automated exposure control; mA and/or kV adjustment per patient size (includes targeted exams where dose is matched to clinical indication); or iterative reconstruction. Contrast material: OMNI 350; Contrast volume: 100 ml; Contrast route: INTRAVENOUS (IV); COMPARISON: CT ABDOMEN PELVIS W 10/04/2022 10:02 PM FINDINGS: Liver: Normal. No mass. Gallbladder and bile ducts: Gallbladder is surgically absent. Pancreas: Normal. No ductal dilation. Spleen: Simple 1.4 cm splenic cyst has decreased in size from previous, compatible with a benign etiology. Adrenal glands: Normal. No mass. Kidneys and ureters: Normal. No hydronephrosis. Stomach and bowel: Unremarkable. No obstruction. No mucosal thickening. Appendix: No evidence of appendicitis. Intraperitoneal space: Unremarkable. No free air. No significant fluid collection. Vasculature: Moderate atherosclerotic calcification in the aorta. No evidence of aortic aneurysm or dissection. Lymph nodes: Unremarkable. No enlarged lymph nodes. Urinary bladder: Unremarkable as visualized. Reproductive: A few small nabothian cysts noted in the cervix. Uterus and ovaries are otherwise unremarkable. Bones/joints: Unremarkable. No acute fracture. Soft tissues: Unremarkable. IMPRESSION: No acute abnormality. Stable/chronic findings as noted. Dictated and Authenticated by: Ravi Sanchez MD. Ordering:OFE Bernard MD
--- NOTE | 2022-12-20 22:26 | ED.GENADUL_ITS ---
Discharge Plan Disposition Patient Disposition: Home Discharge Details Clinical Impression: Nausea & vomiting Primary Care Provider: Iraida Kumar ED Provider: Marco Antonio Rapp Home Meds and New Rx's Prescriptions: New prochlorperazine maleate [Compazine] 10 mg tablet 10 mg PO Q6H PRN (Reason: nausea and vomiting) Qty: 20 0RF Continued triamcinolone acetonide 0.5 % cream 1 applic topical BID Qty: 45 2RF ferrous sulfate [FeroSul] 325 mg (65 mg iron) tablet 325 mg PO DAILY Qty: 30 3RF Patient Comments: Pt states she doesn't take albuterol sulfate [ProAir HFA] 90 mcg/actuation HFA aerosol inhaler 1 puff Inhalation Q4H PRN Qty: 3 1RF omeprazole 40 mg capsule,delayed release(DR/EC) 40 mg PO BID Qty: 180 1RF zolpidem 5 mg tablet 5 mg PO QHS PRN duloxetine 30 mg capsule,delayed release(DR/EC) 30 mg PO DAILY Qty: 90 3RF Spiriva Respimat 1.25 mcg/actuation mist 2 puff inhalation Q24H Qty: 12 3RF acetaminophen [Tylenol] 325 mg Tablet 650 mg PO Q4H PRN PRNQty: 30 0RF Discharge Instructions Instructions: Acute Nausea and Vomiting (ED) Additional Instructions: At this time no emergent findings were noted. Please slowly advance your diet as tolerated and take the medication as prescribed. It is very important that you follow-up with a GI specialist to further investigate your symptoms If you develop any new or significant worsening symptoms feel free to return to the emergency department for reassessment Referrals: Iraida Kumar MD [Primary Care Provider] - Medical Decision Making Patient presenting the emergency department for chief complaint of nausea vomiting and some abdominal pain since Tuesday. Patient reports that her home nausea medication is no longer working. She does state that she has had multiple episodes in the past with no specific finding and she has a GI specialty appointment in 1 week in [place] for endoscopy. Patient has significant past medical history of anxiety, COPD, acid reflux, migraines, chronic pain. Physical exam shows left lower quadrant tenderness otherwise unremarkable exam. We will plan on checking labs and CT imaging given multiple days of vomiting. Pending results will give IV fluids and Zofran. Review of labs show nonspecific leukocytosis with white count of 24. Of note the patient has had same labs in the past with similar presentation. CMP shows slight hyponatremia, hypokalemia, anion gap is elevated at 11.4. Glucose slightly elevated at 113 and alk phos at 123. All other LFTs including lipase are within normal range. Urinalysis shows ketones and trace blood again otherwise nondiagnostic. Review of CT imaging shows no acute findings. Patient reassessed and still is having some dry heaving. Patient given Compazine, additional fluids, and Benadryl. Reassessed patient and patient states significant improvement of symptoms. Patient agreeable to go home and follow-up with GI specialist which I feel that is most beneficial given that she already has follow-up arranged and this is a chronic ongoing condition. After discussion of diagnosis and plan of care patient has no further needs, questions, or concerns and states clear understanding to return to the emergency department for any worsening symptoms. This documentation was generated using [employer] dictation system, please disregard any oddities of phrase or misspellings. Imaging Data Radiologic Study: Imaging: CT Scan Radiologist's impression: Exam(s) PROCEDURE INFORMATION: Exam: CT Abdomen And Pelvis With Contrast Exam date and time: 12/20/2022 9:12 PM Age: 47 years old Clinical indication: Other: Abdominal pain, nasuea, vomitting TECHNIQUE: Imaging protocol: Computed tomography of the abdomen and pelvis with contrast. Radiation optimization: All CT scans at this facility use at least one of these dose optimization techniques: automated exposure control; mA and/or kV adjustment per patient size (includes targeted exams where dose is matched to clinical indication); or iterative reconstruction. Contrast material: OMNI 350; Contrast volume: 100 ml; Contrast route: INTRAVENOUS (IV); COMPARISON: CT ABDOMEN PELVIS W 10/04/2022 10:02 PM FINDINGS: Liver: Normal. No mass. Gallbladder and bile ducts: Gallbladder is surgically absent. Pancreas: Normal. No ductal dilation. Spleen: Simple 1.4 cm splenic cyst has decreased in size from previous, compatible with a benign etiology. Adrenal glands: Normal. No mass. Kidneys and ureters: Normal. No hydronephrosis. Stomach and bowel: Unremarkable. No obstruction. No mucosal thickening. Appendix: No evidence of appendicitis. Intraperitoneal space: Unremarkable. No free air. No significant fluid collection. Vasculature: Moderate atherosclerotic calcification in the aorta. No evidence of aortic aneurysm or dissection. Lymph nodes: Unremarkable. No enlarged lymph nodes. Urinary bladder: Unremarkable as visualized. Reproductive: A few small nabothian cysts noted in the cervix. Uterus and ovaries are otherwise unremarkable. Bones/joints: Unremarkable. No acute fracture. Soft tissues: Unremarkable. IMPRESSION: No acute abnormality. Stable/chronic findings as noted. Dictated and Authenticated by: Ravi Sanchez MD. Lab Data Lab results reviewed: Yes I reviewed the patient's lab results. HPI General Mode of arrival: ambulatory . Date/Time Provider Initiated Documentation: 12/20/22 19:39 . Limitations to Documentation: no limitations . Information obtained by: patient, family and RN notes reviewed . History of Present Illness 47 year old F presents to the emergency department with the chief complaint of Abdominal pain nausea vomiting, described as moderate and similar to prior episodes, Quality is described as aching, and is localized to the abdomen. Patient started experiencing this day(s) (3) and it has been constant. No relieving factors improve symptom(s), No exacerbating factors reported . Patient notes no other symptoms.. Patient did receive the following treatments prior to arrival, none Related Data Home Medications Medication Instructions Recorded Confirmed acetaminophen 325 mg tablet 650 mg PO Q4H PRN PRN #30 tabs 06/16/19 12/20/22 (Tylenol) triamcinolone acetonide 0.5 % 1 applic topical BID #45 grams 02/26/20 12/20/22 topical cream ferrous sulfate 325 mg (65 mg 325 mg PO DAILY #30 tabs 01/16/21 12/20/22 iron) tablet (FeroSul) zolpidem 5 mg tablet 5 mg PO QHS PRN 04/08/21 12/20/22 albuterol sulfate 90 mcg/actuation 1 puff inhalation Q4H PRN ##3 05/29/21 12/20/22 aerosol inhaler (ProAir HFA) duloxetine 30 mg capsule,delayed 30 mg PO DAILY #90 caps 06/30/22 12/20/22 release tiotropium bromide 1.25 2 puff inhalation Q24H #12 grams 07/02/22 12/20/22 mcg/actuation mist for inhalation (Spiriva Respimat) omeprazole 40 mg capsule,delayed 40 mg PO BID #180 tab-caps 08/04/22 12/20/22 release prochlorperazine maleate 10 mg 10 mg PO Q6H PRN nausea and 12/21/22 tablet (Compazine) vomiting #20 tabs Previous Rx's Medication Instructions Recorded acetaminophen 325 mg tablet 650 mg PO Q4H PRN PRN #30 tabs 06/16/19 (Tylenol) triamcinolone acetonide 0.5 % 1 applic topical BID #45 grams 02/26/20 topical cream ferrous sulfate 325 mg (65 mg 325 mg PO DAILY #30 tabs 01/16/21 iron) tablet (FeroSul) albuterol sulfate 90 mcg/actuation 1 puff inhalation Q4H PRN ##3 05/29/21 aerosol inhaler (ProAir HFA) duloxetine 30 mg capsule,delayed 30 mg PO DAILY #90 caps 06/30/22 release tiotropium bromide 1.25 2 puff inhalation Q24H #12 grams 07/02/22 mcg/actuation mist for inhalation (Spiriva Respimat) omeprazole 40 mg capsule,delayed 40 mg PO BID #180 tab-caps 08/04/22 release prochlorperazine maleate 10 mg 10 mg PO Q6H PRN nausea and 12/21/22 tablet (Compazine) vomiting #20 tabs Allergies Allergy/AdvReac Type Severity Reaction Status Date / Time hydrocodone AdvReac Severe Restlessnes Verified 10/06/22 15:13 s nicotine AdvReac Severe Caused Verified 10/06/22 15:13 pain down extremity ropinirole AdvReac Intermediate Insomnia, Unverified 10/06/22 15:13 pounding heart amoxicillin AdvReac thrush Verified 10/06/22 15:13 bupropion [From Wellbutrin] AdvReac jitters Verified 10/06/22 15:13 gabapentin AdvReac sob Verified 10/06/22 15:13 tramadol AdvReac restlessnes Verified 10/06/22 15:13 s varenicline [From Chantix] AdvReac vomiting Verified 10/06/22 15:13 General Stated Complaint: Nausea/Vomit/Diar ROSI: 3 Review of Systems Constitutional Constitutional: Reports chills, Denies fever(s), Denies headache(s), Reports malaise and Reports poor appetite ENT Ears, Nose, Mouth, and Throat: Denies headache(s) Cardiovascular Cardiovascular: Denies chest pain and Denies dyspnea Respiratory Respiratory: Denies cough and Denies dyspnea Gastrointestinal Gastrointestinal: Reports as per HPI, Reports abdominal pain, Denies melena, Denies change in bowel habits, Denies constipation, Denies diarrhea, Reports nausea and Reports vomiting Genitourinary Genitourinary: Denies hematuria, Denies urinary incontinence, Denies urinary hesitancy and Denies urinary urgency Integumentary/Breasts Skin/Breast: Denies rash Neurologic Neurologic: Denies headache(s) PFSH All Active Problems (Updated 12/20/22 @ 23:25 by Marco Antonio Rapp NP) Anxiety (Chronic) Working with Aubrey Gabriel Chronic obstructive lung disease (Chronic) Diarrhea (Chronic) chronic diarrhea Gastroesophageal reflux disease (Chronic) per EGD-01/16 Hyperlipidemia (Chronic) Insomnia disorder (Chronic 05/01/15) Migraine (Chronic 07/06/11) 2 headaches / month; triggers are noxious smells Smoker (Chronic) started age 16; 1 ppd Chronic pain (Chronic) Improved with duloxetine Sacroiliac joint dysfunction of right side (Chronic) Leukocytosis (Chronic) chronic, prior eval with hematology at [facility] Nocturnal myoclonus (Chronic) no improvement with Ropinirole. Nausea & vomiting (Acute) Medical History Abdominal pain (08/12/14) extensive workup at [facility] [place] 2010- no specific cause Abnormal auditory perception of both ears (04/04/17) Acute gastritis REACTIVE GASTROPATHY 01/19/10- DR. ADAMS PER EGD 09/01/16 DR. LOWRY-SEVERE GASTRITIS WITH AN ULCER Allergic eosinophilia INTRAEPITHELIAL EOSINOPHILS, 01/19/10- Rima ADAMS PER EGD Diverticulosis (09/01/16) with history of diverticulitis DUB (dysfunctional uterine bleeding) Hiatal hernia (09/01/16) Uterine fibroid Surgical History History of bilateral salpingo-oophorectomy Status post cholecystectomy Family History Mother , 69 Essential hypertension Heart disease Hyperlipidemia Myocardial infarction AFTER SURGERY AND BLEEDING W/ BLOOD CLOT TO THE HEART. Father Alcohol abuse Personal history of malignant neoplasm THROAT/LIVER/LUNG Brother Alcohol abuse Personal history of malignant neoplasm LIVER Grandfather Personal history of malignant neoplasm Heart disease Grandmother Essential hypertension Stroke Grandmother Personal history of malignant neoplasm Social History Smoking/Tobacco Use Status: Current every day Tobacco Type: cigarettes Smoking packs per day: 1 Smoking cigarettes per day: 20.0 Years smoked: 24 Smoking pack- years: 24.00 Tobacco: How many years used: 26 Quit status: considering quitting Second Hand Exposure: Yes Counseling given: provider counseling Smoking risk assessment performed?: Yes Alcohol Intake: never Drug use: Rarely Substance use type: marijuana Caregiver/Support person: No Household members: spouse, children and other Details: [facility] Housing: house Number of Children: 2 Communication Needs: None Do you need help understanding health information?: Never current occupation: works at home. Pets and animals: Yes Pets and animals: cat(s), dog(s) and farm animals Sexually active: Yes Do you think of yourself as: straight/heterosexual Current gender identity: decline to answer What is your relationship status?: How often do you talk on the phone with friends or family?: never How often do you get together with friends or relatives?: decline to answer How often do you attend anabaptism or adventist services?: decline to answer Do you belong to any clubs or organized social groups?: no Panel score (0-1 are the most socially isolated patients): 1 What type of physical activity do you participate in: walking Duration: 15-30 minutes/day Frequency: 3-4 times per week Renetta/Jewish: None Seatbelt use: always Helmet use: Yes Drive intox or ride w/intox service parts driver: No Do you feel safe at home: Yes Do you feel safe in your relationship?: Yes Additional Social history: Enjoys gardening. Exam Const General: cooperative Orientation: alert, awake and oriented x3 Resp Effort & Inspection: normal respiratory effort and able to speak in complete sentences Auscultation: clear to auscultation bilaterally Cardio Rate: regular rate Rhythm: regular rhythm Heart Sounds: S1 normal and S2 normal GI Palpation: soft, no hepatosplenomegaly, not firm, no guarding, no masses, no pulsatile masses, not rigid, no splenomegaly and tender in the LLQ Auscultation: normal bowel sounds Back/Spine/Pelvis Back: no CVA tenderness Neuro General: patient alert, patient awake, patient oriented x3, gait normal and moves all extremities Course Vital Signs Vital signs: Vital Signs Temperature 37.2 C 12/20/22 19:49 Pulse 72 12/20/22 19:49 Respiratory Rate 26 H 12/20/22 19:49 Blood Pressure 151/86 H 12/20/22 19:49 Pulse Oximetry 99 12/20/22 19:49 Temperature 37.2 C 12/20/22 19:49 Temperature Source Temporal Artery Scan 12/20/22 19:49 Pulse 72 12/20/22 19:49 Respiratory Rate 26 H 12/20/22 19:49 Respiratory Effort Normal 12/20/22 20:00 Blood Pressure 151/86 H 12/20/22 19:49 Blood Pressure Position Sitting 12/20/22 19:49 Pulse Oximetry 99 12/20/22 19:49 Oxygen Delivery Method Room Air 12/20/22 19:49 Oxygen Flow Rate 0 12/20/22 19:49 Pain Level 7 12/20/22 19:49 Lab/Test Results Lab/Test Results: Laboratory Tests Range/Units 12/20/22 12/20/22 20:04 20:04 WBC (4.4-10.8) 10^3/uL 24.02 H RBC (3.93-5.22) 10^6/uL 4.75 Hgb (11.2-15.7) g/dL 14.1 Hct (36.0-46.0) % 41.3 MCV (80-95) fL 87 MCH (27.0-33.0) pg 29.7 MCHC (32.0-36.0) % 34.1 RDW (11.7-14.6) % 14.5 Plt Count (130-400) 10^3/uL 429 H MPV (8.0-11.0) fL 11.0 Immature Gran % 0.6 Neutrophils % 82.3 Lymphocytes % 10.7 Monocytes % 6.3 Eosinophils % 0.0 Basophils % 0.1 Nucleated RBC % (0.0-0.3) % 0.0 Absolute Neutrophils (1.2-6.7) 10^3/uL 19.77 H Absolute Lymphocytes (1.2-3.4) 10^3/uL 2.57 Absolute Monocytes (0.1-0.8) 10^3/uL 1.51 H Absolute Eosinophils (0.0-0.7) 10^3/uL 0.00 Absolute Basophils (0.0-0.2) 10^3/uL 0.02 RBC Morphology Normal Sodium (136-145) mmol/L 134 L Potassium (3.5-5.1) mmol/L 3.3 L Chloride (98-107) mmol/L 96 L Carbon Dioxide (21.0-32.0) mmol/L 26.6 Anion Gap (3-11) mmol/L 11.4 H BUN (7-18) mg/dL 11 Creatinine (0.55-1.02) mg/dL 0.7 Est GFR (CKD-EPI 2020) (mL/min/1.73m2) 106.62 Glucose (74-106) mg/dL 113 H Calcium (8.5-10.1) mg/dL 9.0 Magnesium (1.8-2.4) mg/dL 2.3 Total Bilirubin (0.2-1.0) mg/dL 0.5 AST (15-37) U/L 23 ALT (14-59) U/L 27 Alkaline Phosphatase (46-116) U/L 123 H Total Protein (6.4-8.2) g/dL 8.0 Albumin (3.4-5.0) g/dL 3.9 Lipase (16-77) U/L 41
[2022-12-20 22:44] LABS: Bilirubin Negative (Negative); Blood Trace-intact (Negative); Clarity Clear (Clear); Glucose Negative (Negative); Ketones 15 mg/dL (Negative); Leukocyte Esterase Negative (Negative); Nitrite Negative (Negative); Urobilinogen 0.2 mg/dL (Up to 0.2); pH 7.5 (5-8)
[2022-12-20 22:51] LABS: WBC Negative HPF (0-5)
[2022-12-20 22:52] LABS: Bacteria Negative HPF (Negative); C & S Indicated? No; Crystals Negative HPF (Negative); Epithelial Cells Rare HPF (Negative); Mucus Negative (Negative); RBC 0-2 HPF (0-2)
[2022-12-20] MEDS: diphenhydrAMINE 50 MG/ML VIAL 25 MG IVP (23:05)
[2022-12-20] MEDS: Prochlorperazine 10 MG/2 ML VIAL IVP (23:05)
[2022-12-21 00:22] VITALS: BP 142/80; PULSE 92; RESP 24; TEMP 36.8; O2SAT 96
== END 2022-12-21 00:24 | disposition home or self-care (01) ==
PROVIDERS: Emergency Provider Nurse Practitioner Family; PCP Family Medicine
DX: R11.2 Nausea with vomiting, unspecified (principal)
CPT/HCPCS: 36415; 80053; 83690; 96361; 96374; 96375; 99285; 74177; 81003; 81015; 83735; 85025; 99284; J0780; J1200; J2405; J3490

== ENCOUNTER 2023-01-17 18:48 | Emergency (ER) | payer MEDICAID, SELFPAY ==
[2023-01-17] VITALS (32 sets, daily range): BP systolic 154–172; BP diastolic 72–95; PULSE 65–75; RESP 18; TEMP 36.5; O2SAT 95–100
--- NOTE | 2023-01-17 19:33 | ED.GENADUL_ITS ---
Discharge Plan Disposition Patient Disposition: Home Condition: Improving Discharge Details Chief Complaint: Nausea/Vomit/Diar Clinical Impression: Vomiting Primary Care Provider: Iraida Kumar ED Provider: Taz Whitfield Home Meds and New Rx's Prescriptions: No Action triamcinolone acetonide 0.5 % cream 1 applic topical BID Qty: 45 2RF ferrous sulfate [FeroSul] 325 mg (65 mg iron) tablet 325 mg PO DAILY Qty: 30 3RF Patient Comments: Pt states she doesn't take albuterol sulfate [ProAir HFA] 90 mcg/actuation HFA aerosol inhaler 1 puff Inhalation Q4H PRN Qty: 3 1RF omeprazole 40 mg capsule,delayed release(DR/EC) 40 mg PO BID Qty: 180 1RF zolpidem 5 mg tablet 5 mg PO QHS PRN duloxetine 30 mg capsule,delayed release(DR/EC) 30 mg PO DAILY Qty: 90 3RF Spiriva Respimat 1.25 mcg/actuation mist 2 puff inhalation Q24H Qty: 12 3RF acetaminophen [Tylenol] 325 mg Tablet 650 mg PO Q4H PRN PRNQty: 30 0RF prochlorperazine maleate [Compazine] 10 mg tablet 10 mg PO Q6H PRN (Reason: nausea and vomiting) Qty: 20 0RF Discharge Instructions Instructions: Acute Nausea and Vomiting (ED) Medical Decision Making 47-year-old female history of GERD, gastritis, recent upper endoscopy showing gastritis and esophageal narrowing presents with nausea and vomiting over the last day. Patient afebrile nontoxic however dry heaving and uncomfortable on arrival. Chart review showing extensive history of GERD/gastritis as well as possible cannabinoid hyperemesis. Will trial droperidol, famotidine, fluids, will obtain basic labs lipase close reassessment of symptoms. Patient Dors is recent CT scan. If not improving after medications will consider imaging. Consider recurrent GERD versus gastritis versus enteritis versus viral illness versus foodborne illness lower suspicion for bowel obstruction cholecystitis or appendicitis. 22: 07 patient resting more comfortably no longer vomiting. 22: 27 continues to rest comfortably. No further vomiting. Patient to follow- up with GI team, she has an appointment within the next week. Home care instructions and return precautions given HPI General Date/Time Provider Initiated Documentation: 01/17/23 19:18 . HPI Narrative: 47-year-old female history of chronic GERD, gastritis, recent endoscopy showing gastritis and esophageal narrowing, presents with nausea and vomiting over the last day. Related Data Home Medications Medication Instructions Recorded Confirmed acetaminophen 325 mg tablet 650 mg PO Q4H PRN PRN #30 tabs 06/16/19 12/20/22 (Tylenol) triamcinolone acetonide 0.5 % 1 applic topical BID #45 grams 02/26/20 12/20/22 topical cream ferrous sulfate 325 mg (65 mg 325 mg PO DAILY #30 tabs 01/16/21 12/20/22 iron) tablet (FeroSul) zolpidem 5 mg tablet 5 mg PO QHS PRN 04/08/21 12/20/22 albuterol sulfate 90 mcg/actuation 1 puff inhalation Q4H PRN ##3 05/29/21 12/20/22 aerosol inhaler (ProAir HFA) duloxetine 30 mg capsule,delayed 30 mg PO DAILY #90 caps 06/30/22 12/20/22 release tiotropium bromide 1.25 2 puff inhalation Q24H #12 grams 07/02/22 12/20/22 mcg/actuation mist for inhalation (Spiriva Respimat) omeprazole 40 mg capsule,delayed 40 mg PO BID #180 tab-caps 08/04/22 12/20/22 release prochlorperazine maleate 10 mg 10 mg PO Q6H PRN nausea and 12/21/22 tablet (Compazine) vomiting #20 tabs Previous Rx's Medication Instructions Recorded acetaminophen 325 mg tablet 650 mg PO Q4H PRN PRN #30 tabs 06/16/19 (Tylenol) triamcinolone acetonide 0.5 % 1 applic topical BID #45 grams 02/26/20 topical cream ferrous sulfate 325 mg (65 mg 325 mg PO DAILY #30 tabs 01/16/21 iron) tablet (FeroSul) albuterol sulfate 90 mcg/actuation 1 puff inhalation Q4H PRN ##3 05/29/21 aerosol inhaler (ProAir HFA) duloxetine 30 mg capsule,delayed 30 mg PO DAILY #90 caps 06/30/22 release tiotropium bromide 1.25 2 puff inhalation Q24H #12 grams 07/02/22 mcg/actuation mist for inhalation (Spiriva Respimat) omeprazole 40 mg capsule,delayed 40 mg PO BID #180 tab-caps 08/04/22 release prochlorperazine maleate 10 mg 10 mg PO Q6H PRN nausea and 12/21/22 tablet (Compazine) vomiting #20 tabs Allergies Allergy/AdvReac Type Severity Reaction Status Date / Time hydrocodone AdvReac Severe Restlessnes Verified 01/17/23 19:39 s nicotine AdvReac Severe Caused Verified 01/17/23 19:39 pain down extremity ropinirole AdvReac Intermediate Insomnia, Unverified 01/17/23 19:39 pounding heart amoxicillin AdvReac thrush Verified 01/17/23 19:39 bupropion [From Wellbutrin] AdvReac jitters Verified 01/17/23 19:39 gabapentin AdvReac sob Verified 01/17/23 19:39 tramadol AdvReac restlessnes Verified 01/17/23 19:39 s varenicline [From Chantix] AdvReac vomiting Verified 01/17/23 19:39 General Stated Complaint: Nausea/Vomit/Diar ROSI: 3 Review of Systems Narrative: Physical Examination General: alert, awake, cooperative, appears uncomfortable, dry heaving HEENT: normocephalic, atraumatic; PERRL, EOM intact, conjunctiva normal; no nasal discharge; moist mucous membranes, oral and pharyngeal mucosa normal, tolerating secretions Neck: supple, trachea midline; full ROM Chest: normal to inspection Respiratory: normal respiratory effort, speaking in full sentences, clear to auscultation, no wheezing, rales or rhonchi Cardiac: regular rate, regular rhythm, S1S2 intact, no murmurs rubs or gallops GI: abdomen soft, non-tender, non-distended; no palpable mass or hepatosplenomegaly Skin: no lesions, rashes or trauma appreciated Neuro: AAOx3, normal speech, moving all extremities Psych: Appropriate mood and affect PFSH All Active Problems (Updated 01/17/23 @ 22:28 by Taz Whitfield MD) Anxiety (Chronic) Working with Aubrey Gabriel Chronic obstructive lung disease (Chronic) Diarrhea (Chronic) chronic diarrhea Gastroesophageal reflux disease (Chronic) per EGD-01/16 Hyperlipidemia (Chronic) Insomnia disorder (Chronic 05/01/15) Migraine (Chronic 07/06/11) 2 headaches / month; triggers are noxious smells Smoker (Chronic) started age 16; 1 ppd Chronic pain (Chronic) Improved with duloxetine Sacroiliac joint dysfunction of right side (Chronic) Leukocytosis (Chronic) chronic, prior eval with hematology at [facility] Nocturnal myoclonus (Chronic) no improvement with Ropinirole. Nausea & vomiting (Acute) Vomiting (Acute) Medical History Abdominal pain (08/12/14) extensive workup at [facility] [place]- no specific cause Abnormal auditory perception of both ears (04/04/17) Acute gastritis REACTIVE GASTROPATHY 01/19/10- DR. ADAMS PER EGD 09/01/16 DR. LOWRY-SEVERE GASTRITIS WITH AN ULCER Allergic eosinophilia INTRAEPITHELIAL EOSINOPHILS, 01/19/10- Rima ADAMS PER EGD Diverticulosis (09/01/16) with history of diverticulitis DUB (dysfunctional uterine bleeding) Hiatal hernia (09/01/16) Uterine fibroid Surgical History History of bilateral salpingo-oophorectomy Status post cholecystectomy Family History Mother , 69 Essential hypertension Heart disease Hyperlipidemia Myocardial infarction AFTER SURGERY AND BLEEDING W/ BLOOD CLOT TO THE HEART. Father Alcohol abuse Personal history of malignant neoplasm THROAT/LIVER/LUNG Brother Alcohol abuse Personal history of malignant neoplasm LIVER Grandfather Personal history of malignant neoplasm Heart disease Grandmother Essential hypertension Stroke Grandmother Personal history of malignant neoplasm Social History Smoking/Tobacco Use Status: Current every day Tobacco Type: cigarettes Smoking packs per day: 1 Smoking cigarettes per day: 20.0 Years smoked: 24 Smoking pack- years: 24.00 Tobacco: How many years used: 26 Quit status: considering quitting Second Hand Exposure: Yes Counseling given: provider counseling Smoking risk assessment performed?: Yes Alcohol Intake: never Drug use: Never Caregiver/Support person: No Household members: spouse, children and other Details: [facility] Housing: house Number of Children: 2 Communication Needs: None Do you need help understanding health information?: Never current occupation: works at home. Pets and animals: Yes Pets and animals: cat(s), dog(s) and farm animals Sexually active: Yes Do you think of yourself as: straight/heterosexual Current gender identity: decline to answer What is your relationship status?: How often do you talk on the phone with friends or family?: never How often do you get together with friends or relatives?: decline to answer How often do you attend jewish or jainism services?: decline to answer Do you belong to any clubs or organized social groups?: no Panel score (0-1 are the most socially isolated patients): 1 What type of physical activity do you participate in: walking Duration: 15-30 minutes/day Frequency: 3-4 times per week Renetta/Orthodox: None Seatbelt use: always Helmet use: Yes Drive intox 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 Course Vital Signs Vital signs: Vital Signs Temperature 36.5 C 01/17/23 18:51 Pulse 73 01/17/23 18:51 Respiratory Rate 18 01/17/23 18:51 Blood Pressure 162/88 H 01/17/23 18:51 Pulse Oximetry 100 01/17/23 18:51 Temperature 36.5 C 01/17/23 18:51 Temperature Source Skin 01/17/23 18:51 Pulse 73 01/17/23 18:51 Respiratory Rate 18 01/17/23 18:51 Respiratory Effort Normal 01/17/23 19:03 Blood Pressure 162/88 H 01/17/23 18:51 Blood Pressure Position Sitting 01/17/23 18:51 Pulse Oximetry 100 01/17/23 18:51 Oxygen Delivery Method Room Air 01/17/23 18:51 Oxygen Flow Rate 0 01/17/23 18:51 Pain Level 8 01/17/23 18:51
[2023-01-17] MEDS: Famotidine 20 MG/2 ML VIAL IVP (19:39)
[2023-01-17] MEDS: Droperidol 5 MG/2 ML VIAL 1.25 MG IVP (19:41)
[2023-01-17] MEDS: Normal Saline 1,000 ML 1000 ML IV ×2 (19:45→21:22)
[2023-01-17 20:04] LABS: Absolute Basophil Count 0.04 10^3/uL (0.0-0.2); Absolute Lymphocyte Count 1.52 10^3/uL (1.2-3.4); Absolute Monocyte Count 0.48 10^3/uL (0.1-0.8); Absolute Neutrophil Count 17.88 10^3/uL (1.2-6.7); Basophils % 0.2; HCT 44.3 % (36.0-46.0); HGB 14.9 g/dL (11.2-15.7); Immature Grans % 0.5; Lymphocytes % 7.6; MCH 29.4 pg (27.0-33.0); MCHC 33.6 % (32.0-36.0); MCV 87 fL (80-95); MPV 11.1 fL (8.0-11.0); Monocytes % 2.4; Neutrophils % 89.3; Platelet Count 457 10^3/uL (130-400); RBC 5.07 10^6/uL (3.93-5.22); RDW 14.2 % (11.7-14.6); RDW-SD 45.3 fL; WBC 20.02 10^3/uL (4.4-10.8)
[2023-01-17 20:19] LABS: ALT 24 U/L (14-59); AST 20 U/L (15-37); Alkaline Phosphatase 136 U/L (46-116); Anion Gap 15.7 mmol/L (3-11); BUN 6 mg/dL (7-18); Bilirubin, Total 0.5 mg/dL (0.2-1.0); CO2 22.3 mmol/L (21.0-32.0); CREATININE 0.7 mg/dL (0.55-1.02); Calcium 9.5 mg/dL (8.5-10.1); Chloride 98 mmol/L (98-107); Estimated GFR 106.62 (mL/min/1.73m2); Glucose 170 mg/dL (74-106); Lipase 55 U/L (16-77); Potassium 3.9 mmol/L (3.5-5.1); Sodium 136 mmol/L (136-145); Total Protein 8.2 g/dL (6.4-8.2)
--- NOTE | 2023-01-17 20:45 | NUR.NOTE ---
PT states that her nausea has improved Nursing Note:
[2023-01-17] MEDS: Mylanta Suspension 30 ML CUP PO (21:22)
== END 2023-01-17 22:34 | disposition home or self-care (01) ==
PROVIDERS: Emergency Provider Emergency Medicine; PCP Family Medicine
DX: R11.10 Vomiting, unspecified (principal)
CPT/HCPCS: 80053; 83690; 96361; 96374; 96375; 99284; 85025; J1790

== ENCOUNTER 2024-07-03 18:11 | Emergency (ER) | payer SELFPAY ==
[2024-07-03 18:25] VITALS: BP 177/101; PULSE 77; RESP 16; O2SAT 96
[2024-07-03 18:27] VITALS: BP 177/101; PULSE 77; RESP 16; O2SAT 96
--- NOTE | 2024-07-03 18:50 | ED.GENADUL_ITS ---
Discharge Plan Disposition Patient Disposition: Home Condition: Improving Discharge Details Clinical Impression: Colitis, GERD (gastroesophageal reflux disease), Esophageal stricture Primary Care Provider: Iraida Kumar ED Provider: Harvinder Cortez Meds and New Rx's Prescriptions: New ondansetron 8 mg tablet,disintegrating 8 mg PO Q8H PRNQty: 30 0RF amoxicillin-pot clavulanate 875-125 mg tablet 1 tab PO BID Qty: 14 0RF Continued valacyclovir 500 mg tablet 500 mg PO BID PRN (Reason: hsv) Qty: 6 1RF Rx Instructions: Take bid for 3 days. duloxetine 30 mg capsule,delayed release(DR/EC) 30 mg PO DAILY Qty: 90 3RF Spiriva Respimat 1.25 mcg/actuation mist 2 puff inhalation Q24H Qty: 12 3RF zolpidem 5 mg tablet 5 mg PO QHS PRN (Reason: insomnia) Qty: 30 5RF pantoprazole 40 mg tablet,delayed release (DR/EC) 40 mg PO BID Qty: 180 3RF cyclobenzaprine 5 mg tablet 5 mg PO QHS PRN (Reason: muscle spasm) Qty: 14 0RF Discharge Instructions Instructions: Esophageal Dilation, Esophageal Stricture (DC), Colitis (DC) Discharge Data Discharge Date/Time-TO BE ENTERED AT DEPARTURE: 07/03/24 23:41 Discharge Physician: Harvinder Cortez HPI General Date/Time Provider Initiated Documentation: 07/03/24 18:33 . HPI Narrative: Patient presents emergency department complaining of left upper quadrant and left flank pain associated with nausea and vomiting. States that she went to her doctor 5 days ago because she was having back pain and according to her they tested her urine and they thought it was not a kidney stone the patient has gastritis and takes pantoprazole and states that she has been vomiting bile. Also reports some diarrhea. Denies fever denies chills denies hematuria, patient also reports if esophageal stricture but she says that she has no problems swallowing Related Data Home Medications ?Medication ?Instructions ?Recorded ?Confirmed duloxetine 30 mg capsule,delayed 30 mg PO DAILY #90 caps 05/30/24 07/03/24 release pantoprazole 40 mg tablet,delayed 40 mg PO BID #180 tabs 05/30/24 07/03/24 release tiotropium bromide 1.25 2 puff inhalation Q24H #12 grams 05/30/24 07/03/24 mcg/actuation mist for inhalation (Spiriva Respimat) valacyclovir 500 mg tablet 500 mg PO BID PRN hsv #6 tabs 05/30/24 07/03/24 zolpidem 5 mg tablet 5 mg PO QHS PRN insomnia #30 tabs 05/30/24 07/03/24 cyclobenzaprine 5 mg tablet 5 mg PO QHS PRN muscle spasm #14 06/27/24 07/03/24 tabs amoxicillin 875 mg-potassium 1 tab PO BID #14 tabs 07/03/24 clavulanate 125 mg tablet ondansetron 8 mg disintegrating 8 mg PO Q8H PRN #30 tabs 07/03/24 tablet Previous Rx's ?Medication ?Instructions ?Recorded duloxetine 30 mg capsule,delayed 30 mg PO DAILY #90 caps 05/30/24 release pantoprazole 40 mg tablet,delayed 40 mg PO BID #180 tabs 05/30/24 release tiotropium bromide 1.25 2 puff inhalation Q24H #12 grams 05/30/24 mcg/actuation mist for inhalation (Spiriva Respimat) valacyclovir 500 mg tablet 500 mg PO BID PRN hsv #6 tabs 05/30/24 zolpidem 5 mg tablet 5 mg PO QHS PRN insomnia #30 tabs 05/30/24 cyclobenzaprine 5 mg tablet 5 mg PO QHS PRN muscle spasm #14 06/27/24 tabs amoxicillin 875 mg-potassium 1 tab PO BID #14 tabs 07/03/24 clavulanate 125 mg tablet ondansetron 8 mg disintegrating 8 mg PO Q8H PRN #30 tabs 07/03/24 tablet Allergies Allergy/AdvReac Type Severity Reaction Status Date / Time hydrocodone AdvReac Severe Restlessnes Verified 07/03/24 18:27 s nicotine AdvReac Severe Caused Verified 07/03/24 18:27 pain down extremity ropinirole AdvReac Intermediate Insomnia, Unverified 07/03/24 18:27 pounding heart amoxicillin AdvReac thrush Verified 07/03/24 18:27 bupropion (From Wellbutrin) AdvReac jitters Verified 07/03/24 18:27 gabapentin AdvReac sob Verified 07/03/24 18:27 tramadol AdvReac restlessnes Verified 07/03/24 18:27 s varenicline (From Chantix) AdvReac vomiting Verified 07/03/24 18:27 General Stated Complaint: Nausea/Vomit/Diar ROSI: 3 Review of Systems Narrative: Review of Systems: Constitutional: No fevers, chills, sweats Eye: No recent visual problems ENT: No ear pain, nasal congestion, sore throat Respiratory: No shortness of breath, cough Cardiovascular: No Chest pain, palpitations, syncope Genitourinary: No hematuria Cresencio/Lymph: Negative for bruising tendency, swollen lymph glands Endocrine: Negative for excessive thirst, excessive hunger Musculoskeletal: No neck pain, joint pain, muscle pain, decreased range of motion Integumentary: No rash, pruritus, abrasions Neurologic: Alert & oriented X 4 Psychiatric: No anxiety, depression Exam Narrative Exam Narrative: Exam; vitals signs as reported above normal Constitutional; In no acute distress, afebrile General: cooperative, healthy appearing, comfortable and no acute distress HEENT: Head: normal to inspection, no palpable skull fracture and normocephalic atraumatic Eyes: : appearance normal, both eyes and all related structures EOM intact bilaterally Pupils: PERRL : conjunctiva normal Direct ophthalmoscopy: normal light reflex, normal conjunctiva, normal visual acuity Ears: Normal TM, normal external canal Nose: normal no rhinorreha Neck no JVD, supple non tender Neck: normal visual inspection, full ROM and no lymphadenopathy Chest: normal inspection of the chest Respiratory : normal respiratory effort and able to speak in complete sentences no wheezing no rales Cardio Rate: regular rate, rhythm: regular rhythm normal heart sounds S1 and S2 no murmurs, gallops, or rubs GI : normal to inspection, normal bowel sounds, soft, non tender, non distended, no organomegaly Back/Spine/ no CVA tenderness Thoracic/Lumbar Spine: no tenderness or deformities Skin no rashes or lesions Neuro: patient alert oriented x 4 and no meningeal signs, Cranial Nerves: CN's II-XI intact bilaterally, Cognition: normal cognition, Speech: speech normal, Gait: normal gait, Depp tendon reflexes normal 2+ muscle strength 5/5 bilaterally Extremities, no edema, full range of motion, normal strength Course Vital Signs Vital signs: Vital Signs Pulse 77 07/03/24 18:25 Respiratory Rate 16 07/03/24 18:25 Blood Pressure 177/101 H 07/03/24 18:25 Pulse Oximetry 96 07/03/24 18: Pulse 77 07/03/24 18:27 Respiratory Rate 16 07/03/24 18:27 Blood Pressure 177/101 H 07/03/24 18:27 Pulse Oximetry 96 07/03/24 18:27 Medical Decision Making MDM: Summary: Patient presented to the emergency department with left upper quadrant abdominal pain very uncomfortable and episodes of nausea and vomiting. Initially I thought she could have a kidney stone but CT scan of the abdomen pelvis did not show any kidney stones but shows inflammation of the transverse colon most compatible with infectious or inflammatory colitis is read by the radiologist. She was giving initially Zofran and IV fluids with improvement of her symptoms. She also states that she has reflux and later states that she wanted to get some thing for her esophagus she was giving sucralfate with improvement and Reglan for her nausea. She states she has improved significantly and been sleeping in the room says that this happens occasionally and she will see a surgeon. Will also give her some antibiotics but she does report that she had diarrhea associated with his nausea and this colitis could be infectious colitis or gastroenteritis Data Review Analysis All the data on this patient was reviewed by me including laboratory and imaging studies as well as bedside studies performed by me Independent review of Studies Imaging CT scan reveals colitis of the transverse colon at the level where she has pain Lab: Patient has a white a white count of 17,000 but her white count seems to be chronically elevated from previous visits but this could also be signs of infection Risk Stratification: Patient with normal CT scan with no acute abdomen who has questionable colitis in her transverse colon she was given Reglan Zofran and with appropriate symptoms she will be discharged on Zofran as well as ciprofloxacin for could be diarrhea or enteritis colitis Differential Diagnosis: 1. Colitis 2. Infectious colitis 3. Gastroenteritis 4. Renal colic 5. Consultants: Shared disposition: Patient states he is improved and will be discharged home since her nausea has resolved at this time and told her that if it recurs which is vomiting to return to the emergency department Impression: Medical Records Medical records reviewed: Yes I reviewed the patient's medical records. Imaging Data Radiologic Study: Attestation: I personally reviewed and interpreted this imaging study as follows: Imaging: CT Scan Radiologist's impression: Infectious or inflammatory colitis no kidney stones Lab Data Lab results reviewed: Yes I reviewed the patient's lab results. Quality:SDOH Health Related Social Needs: No Data to Display PFSH All Active Problems (Updated 07/03/24 @ 23:17 by Harvinder Cortez MD) Esophageal stricture (Acute) GERD (gastroesophageal reflux disease) (Chronic) Colitis (Acute) Esophageal dysphagia (Chronic) Nocturnal myoclonus (Chronic) no improvement with Ropinirole. Leukocytosis (Chronic) chronic, prior eval with hematology at [facility] Sacroiliac joint dysfunction of right side (Chronic) Chronic pain (Chronic) Improved with duloxetine Smoker (Chronic) started age 16; 1 ppd Migraine (Chronic 07/06/11) 2 headaches / month; triggers are noxious smells Insomnia disorder (Chronic 05/01/15) Hyperlipidemia (Chronic) Gastroesophageal reflux disease (Chronic) per EGD-01/16; esophagitis on EGD 12/2022 Diarrhea (Chronic) chronic diarrhea Chronic obstructive lung disease (Chronic) Anxiety (Chronic) Working with Aubrey Gabriel Medical History DUB (dysfunctional uterine bleeding) Uterine fibroid Hiatal hernia (09/01/16) Diverticulosis (09/01/16) with history of diverticulitis Allergic eosinophilia INTRAEPITHELIAL EOSINOPHILS, 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 ADAMS PER EGD 09/01/16 DR. LOWRY-SEVERE GASTRITIS WITH AN ULCER Abnormal auditory perception of both ears (04/04/17) Abdominal pain (08/12/14) extensive workup at [facility] [place] 2010- no specific cause Surgical History History of bilateral salpingo-oophorectomy Status post cholecystectomy Family History Mother , 69 Essential hypertension Heart disease Hyperlipidemia Myocardial infarction AFTER SURGERY AND BLEEDING W/ BLOOD CLOT TO THE HEART. Father Alcohol abuse Personal history of malignant neoplasm THROAT/LIVER/LUNG Brother Alcohol abuse Personal history of malignant neoplasm LIVER Grandfather Personal history of malignant neoplasm Heart disease Grandmother Essential hypertension Stroke Grandmother Personal history of malignant neoplasm Social History Smoking/Tobacco Use Status: Current every day Tobacco Type: cigarettes Smoking packs per day: 1 Smoking cigarettes per day: 20.0 Years smoked: 24 Smoking pack- years: 24.00 Tobacco: How many years used: 26 Quit status: considering quitting Second Hand Exposure: Yes Counseling given: provider counseling Smoking risk assessment performed?: Yes Alcohol Intake: never Drug use: Never Caregiver/Support person: No Household members: spouse, children and other Details: [facility] Housing: house Number of Children: 2 Communication Needs: None Do you need help understanding health information?: Never current occupation: unable to work due to stomach problems Pets and animals: Yes Pets and animals: cat(s), dog(s) and farm animals Sexually active: Yes Do you think of yourself as: straight/heterosexual Current gender identity: decline to answer What is your relationship status?: How often do you talk on the phone with friends or family?: never How often do you get together with friends or relatives?: decline to answer How often do you attend yazdanism or latter day services?: decline to answer Do you belong to any clubs or organized social groups?: no Panel score (0-1 are the most socially isolated patients): 1 What type of physical activity do you participate in: walking Duration: 15-30 minutes/day Frequency: 3-4 times per week Renetta/Gnosticism: None Seatbelt use: always Helmet use: Yes Drive intox or ride w/intox 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
--- NOTE | 2024-07-03 19:00 | DI.CT_ITS ---
Exam(s) CT RENAL COLIC WO EXAM: CT RENAL COLIC WO CLINICAL HISTORY: left flank pain vomiting. TECHNIQUE: Imaging Protocol: Axial computed tomography images with coronal and sagittal reformatted images were created and reviewed. Oral: no COMPARISON: CT CT ABDOMEN PELVIS W from 08/17/[address] ABDOMEN PELVIS W from 12/20/2022 FINDINGS: Lung Bases: No acute findings. Tiny hiatal hernia. Liver: Normal density. No suspicious mass. Gallbladder and biliary tract: Cholecystectomy peer no biliary dilation. Pancreas: Normal density. No abnormal calcifications or inflammatory process. Spleen: Normal. Kidneys: Normal size, contour and axis. No radiodense stones. No obstructive uropathy. No suspicious masses seen. Adrenal glands: No masses seen. Mildly prominent adrenal glands, not significantly changed from stevie or. Lymph nodes: Within normal limits. Vasculature: Abdominal aorta non-dilated. Mild atherosclerotic changes. Soft tissues: Unremarkable. Bladder: Empty. No wall thickening. No mass or calculi. Bowel: The colon is nearly free of stool. Mild diverticulosis of the descending and sigmoid colon. No evidence of diverticulitis. No obstruction or bowel wall thickening. Appendix normal. Peritoneal cavity: No ascites. No focal collection. No mesenteric inflammatory response. Reproductive organs: Unremarkable. Bones: Unremarkable for age. IMPRESSION: No acute abnormality in the abdomen or pelvis. RADIATION DOSE DELIVERED: 584.85mGy.cm Total DLP 584.85mGy.cm Total DLP DATA REPOSITORY: All CT scans at this facility are submitted to the National Radiology Data Registry (NRDR) Dose Index Registry (DIR) with the [employer] (ACR). RADIATION OPTIMIZATION: All CT scans at this facility use at least one of these dose optimization te chniques: automated exposure control; mA and/or kV adjustment per patient size (includes targeted exa ms where dose is matched to clinical indication); or iterative reconstruction.
[2024-07-03 19:22] LABS: Abs Immature Grans 0.12 10^3/uL (0.0-0.06); Absolute Lymphocyte Count 1.92 10^3/uL (1.2-3.4); Absolute Monocyte Count 0.72 10^3/uL (0.1-0.8); Basophils % 0.2 %; HCT 44.1 % (36.0-46.0); HGB 15.4 g/dL (11.2-15.7); Immature Grans % 0.7 %; Lymphocytes % 10.7 %; MCH 30.9 pg (27.0-33.0); MCHC 34.9 % (32.0-36.0); MCV 88 fL (80-95); MPV 10.2 fL (8.0-11.0); Neutrophils % 84.4 %; Platelet Count 369 10^3/uL (130-400); RBC 4.99 10^6/uL (3.93-5.22); RDW 12.7 % (11.7-14.6); RDW-SD 41.2 fL; WBC 17.93 10^3/uL (4.4-10.8)
[2024-07-03 19:24] LABS: Absolute Basophil Count 0.04 10^3/uL (0.0-0.2); Absolute Neutrophil Count 15.13 10^3/uL (1.2-6.7)
[2024-07-03] MEDS: Ondansetron 4 MG/2 ML VIAL IVP (19:33)
[2024-07-03] MEDS: Normal Saline 1,000 ML 1000 ML IV (19:33)
[2024-07-03 19:42] LABS: ALT 37 U/L (14-59); AST 24 U/L (15-37); Albumin 4.1 g/dL (3.4-5.0); Alkaline Phosphatase 133 U/L (46-116); Anion Gap 12.7 mmol/L (3-11); BUN 12 mg/dL (7-18); Bilirubin, Total 0.67 mg/dL (0.2-1.0); CO2 26.3 mmol/L (21.0-32.0); CREATININE 0.7 mg/dL (0.55-1.02); Calcium 10.1 mg/dL (8.5-10.1); Chloride 96 mmol/L (98-107); Estimated GFR 105.95 (mL/min/1.73m2); Glucose 137 mg/dL (74-106); Lipase 34 U/L (<78); Potassium 3.2 mmol/L (3.5-5.1); Sodium 135 mmol/L (136-145)
[2024-07-03 20:26] LABS: Bilirubin Negative (Negative); Blood Negative (Negative); Clarity Sl Cloudy (Clear); Glucose Negative (Negative); Ketones 40 mg/dL (Negative); Leukocyte Esterase Negative (Negative); Nitrite Negative (Negative); Specific Gravity 1.025 (1.005-1.025); Urobilinogen 0.2 mg/dL (Up to 0.2)
--- NOTE | 2024-07-03 20:33 | DI.VRAD_ITS ---
PROCEDURE INFORMATION: Exam: CT Abdomen And Pelvis Without Contrast Exam date and time: 07/03/2024 7:37 PM Age: 48 years old Clinical indication: Other: Left flank pain, vomiting TECHNIQUE: Imaging protocol: Computed tomography of the abdomen and pelvis without contrast. COMPARISON: CT ABDOMEN PELVIS W 12/20/2022 9:12 PM FINDINGS: Lungs: Lung bases clear Diaphragm: Small hiatal hernia. Liver: Grossly unremarkable unenhanced liver. Gallbladder and biliary ducts: Prior cholecystectomy. No biliary dilatation. Pancreas: Grossly unremarkable unenhanced pancreas. Spleen: Grossly unremarkable unenhanced spleen. Adrenal glands: Bilateral adrenal enlargement. Asymmetric periadrenal fat stranding on the left. Kidneys and ureters: Grossly unremarkable unenhanced kidneys. No radiopaque urinary tract stones, hydronephrosis, or evidence of recent stone passage. Stomach and bowel: No oral contrast. Stomach partially decompressed. No small bowel dilatation to suggest obstruction. Colon largely well evacuated of fecal material and collapsed through much of its course. Apparent mural thickening through the collapsed well evacuated distal transverse colon, descending colon, and sigmoid colon. Artifact of incomplete distension? Acute segmental colitis? No focal acute diverticulitis. Appendix: Normal appendix. Intraperitoneal space: No gross ascites or free air. Vasculature: Normal caliber abdominal aorta. Lymph nodes: No pathologically enlarged mesenteric, retroperitoneal, or pelvic sidewall lymph nodes. Urinary bladder: Urinary bladder collapsed and not well evaluated but grossly unremarkable, as seen. Reproductive: Uterus and ovaries partially obscured but normal in size. Bones/joints: No acute fracture seen among the bones of the abdomen or pelvis. Soft tissues: No significant ventral or inguinal hernia. IMPRESSION: 1. Bilateral adrenal enlargement, nonspecific. Clinical correlation is recommended to exclude adrenal hyperplasia. 2. Asymmetric periadrenal fat stranding on the left. Although nonspecific, clinical correlation is recommended to exclude acute adrenal pathology such as adrenal ischemia, infection, inflammation, or hemorrhage. 3. Small hiatal hernia. 4. Colon largely well evacuated of fecal material. Apparent mural thickening through the collapsed, well evacuated distal transverse colon, descending colon, and sigmoid colon. Artifact of incomplete distension is suspected. Acute segmental colitis could probably have a similar appearance. Clinical correlation is recommended. If there is clinical concern for colitis, infectious, inflammatory, or ischemic etiologies would be considered. Dictated and Authenticated by: Roger Lerma MD. Orderin Diego Blanton MD
[2024-07-03 20:34] LABS: Epithelial Cells Rare HPF (Negative); RBC Negative HPF (0-2)
[2024-07-03 20:35] LABS: Bacteria Rare HPF (Negative); C & S Indicated? No; Casts Negative LPF (Negative); Crystals Mod Calcium Oxalate HPF (Negative); Mucus Trace (Negative)
[2024-07-03] MEDS: Metoclopramide 10 MG/2 ML VIAL IVP (21:29)
[2024-07-03] MEDS: Sucralfate 1 GM TAB PO (21:29)
[2024-07-03 23:41] VITALS: BP 158/88; PULSE 76; RESP 22; TEMP 37.1; O2SAT 97
== END 2024-07-03 23:41 | disposition home or self-care (01) ==
PROVIDERS: Emergency Provider Emergency Medicine Emergency Medical Services; PCP Family Medicine
DX: R11.10 Vomiting, unspecified (principal); E87.6 Hypokalemia
CPT/HCPCS: 80053; 81025; 83690; 96361; 96374; 96375; 99284; 74176; 81003; 81015; 83735; 85025; J2405; J2765

== ENCOUNTER 2024-07-04 17:46 | Emergency (ER) | payer SELFPAY ==
[2024-07-04 17:56] VITALS: BP 188/112; PULSE 77; RESP 16; TEMP 36.6; O2SAT 98
--- NOTE | 2024-07-04 18:21 | W.ED.GENAD ---
Discharge Plan Disposition Patient Disposition: Home Condition: Stable Discharge Details Clinical Impression: Vomiting Primary Care Provider: Iraida Kumar ED Provider: Austin Dong Home Meds and New Rx's Prescriptions: New potassium chloride 20 mEq tablet extended release 20 meq PO DAILY Qty: 10 0RF Continued valacyclovir 500 mg tablet 500 mg PO BID PRN (Reason: hsv) Qty: 6 1RF Rx Instructions: Take bid for 3 days. duloxetine 30 mg capsule,delayed release(DR/EC) 30 mg PO DAILY Qty: 90 3RF Spiriva Respimat 1.25 mcg/actuation mist 2 puff inhalation Q24H Qty: 12 3RF zolpidem 5 mg tablet 5 mg PO QHS PRN (Reason: insomnia) Qty: 30 5RF pantoprazole 40 mg tablet,delayed release (DR/EC) 40 mg PO BID Qty: 180 3RF cyclobenzaprine 5 mg tablet 5 mg PO QHS PRN (Reason: muscle spasm) Qty: 14 0RF ondansetron 8 mg tablet,disintegrating 8 mg PO Q8H PRNQty: 30 0RF amoxicillin-pot clavulanate 875-125 mg tablet 1 tab PO BID Qty: 14 0RF No Action sucralfate 1 gram tablet 1 g PO QACHS Qty: 90 0RF Discharge Instructions Instructions: High Potassium Diet, Potassium Chloride, Nausea and Vomiting, Adult ED Additional Instructions: You were seen in the emergency department for your continued nausea and vomiting, he had mildly low potassium which I have prescribed supplement for you, you are able to tolerate p.o. intake, please continue your at home antinausea meds, please hydrate and nourish yourself slowly as to not overwhelm your stomach. Please return for any further intractable nausea or vomiting, severe increase in pain with fever. Referrals: Iraida Kumar MD [Primary Care Provider] - Discharge Data Discharge Date/Time-TO BE ENTERED AT DEPARTURE: 07/04/24 23:09 HPI General Date/Time Provider Initiated Documentation: 07/04/24 18:21. HPI Narrative: 48 year-old female presents to ED today by POV/ambulating with a chief complaint of nausea/vomiting/diarrhea with onset Tuesday. Quality described as LLQ abdominal pain- seen last night and diagnosed with colitis, placed on Augmentin- reports intractable vomiting and inability to take her antibiotics, no radiation to fever, chest pain, shortness of breath, cough. Severity is described as 10/10. Palliating factors include nothing specific helping. Provoking factors include nothing specific. Patient not anticoagulated. Related Data Home Medications ?Medication ?Instructions ?Recorded ?Confirmed duloxetine 30 mg capsule,delayed 30 mg PO DAILY #90 caps 05/30/24 07/04/24 release pantoprazole 40 mg tablet,delayed 40 mg PO BID #180 tabs 05/30/24 07/04/24 release tiotropium bromide 1.25 2 puff inhalation Q24H #12 grams 05/30/24 07/04/24 mcg/actuation mist for inhalation (Spiriva Respimat) valacyclovir 500 mg tablet 500 mg PO BID PRN hsv #6 tabs 05/30/24 07/04/24 zolpidem 5 mg tablet 5 mg PO QHS PRN insomnia #30 tabs 05/30/24 07/04/24 cyclobenzaprine 5 mg tablet 5 mg PO QHS PRN muscle spasm #14 06/27/24 07/04/24 tabs amoxicillin 875 mg-potassium 1 tab PO BID #14 tabs 07/03/24 07/04/24 clavulanate 125 mg tablet ondansetron 8 mg disintegrating 8 mg PO Q8H PRN #30 tabs 07/03/24 07/04/24 tablet potassium chloride 20 mEq 20 meq PO DAILY #10 tabs 07/04/24 tablet,extended release sucralfate 1 gram tablet 1 g PO QACHS #90 tabs 07/05/24 Previous Rx's ?Medication ?Instructions ?Recorded duloxetine 30 mg capsule,delayed 30 mg PO DAILY #90 caps 05/30/24 release pantoprazole 40 mg tablet,delayed 40 mg PO BID #180 tabs 05/30/24 release tiotropium bromide 1.25 2 puff inhalation Q24H #12 grams 05/30/24 mcg/actuation mist for inhalation (Spiriva Respimat) valacyclovir 500 mg tablet 500 mg PO BID PRN hsv #6 tabs 05/30/24 zolpidem 5 mg tablet 5 mg PO QHS PRN insomnia #30 tabs 05/30/24 cyclobenzaprine 5 mg tablet 5 mg PO QHS PRN muscle spasm #14 06/27/24 tabs amoxicillin 875 mg-potassium 1 tab PO BID #14 tabs 07/03/24 clavulanate 125 mg tablet ondansetron 8 mg disintegrating 8 mg PO Q8H PRN #30 tabs 07/03/24 tablet potassium chloride 20 mEq 20 meq PO DAILY #10 tabs 07/04/24 tablet,extended release sucralfate 1 gram tablet 1 g PO QACHS #90 tabs 07/05/24 Allergies Allergy/AdvReac Type Severity Reaction Status Date / Time hydrocodone AdvReac Severe Restlessnes Verified 07/04/24 17:58 s nicotine AdvReac Severe Caused Verified 07/04/24 17:58 pain down extremity ropinirole AdvReac Intermediate Insomnia, Unverified 07/04/24 17:58 pounding heart amoxicillin AdvReac thrush Verified 07/04/24 17:58 bupropion (From Wellbutrin) AdvReac jitters Verified 07/04/24 17:58 gabapentin AdvReac sob Verified 07/04/24 17:58 tramadol AdvReac restlessnes Verified 07/04/24 17:58 s varenicline (From Chantix) AdvReac vomiting Verified 07/04/24 17:58 General Stated Complaint: Abd Prob ROSI: 3 Review of Systems All systems reviewed & are unremarkable except as noted in HPI and below Exam Narrative Exam Narrative: GENERAL APPEARANCE: Well-nourished, non-toxic, awake and alert, atraumatic, no acute distress. SKIN: Warm, pink, dry, intact, without rashes/lesions/ulcerations. HEAD: Normocephalic, atraumatic, normal hair distribution for gender/age. EYES: Normal conjunctiva, no exudates on lids/lashes. ENT: Nares patent, no circumoral cyanosis, no facial swelling NECK: Supple, trachea midline, painless cervical ROM. LUNGS/CHEST: Lungs CTA bilaterally, non-labored respirations, normal A/P diameter, symmetrical expansion, no chest wall deformity HEART (CV/PV): Regular rate and rhythm without murmur, no peripheral edema, no JVD. ABDOMEN: Soft, non-distended, no guarding, diffuse tenderness, active vomiting, no rebound tenderness. MSK: Normal ROM, no swelling/deformity to bilateral UEs or LEs, moving all extremities without weakness, no cyanosis, spine midline without tenderness, normal curvature. NEURO: Mental Status AAOx4 - alert to person, place, time, events No facial droop, no forehead involvement. Motor: No focal weakness - strength 5/5 in bilateral UEs and LEs, proximal and distal, symmetric. Sensory: sensation intact to light touch globally. Gait normal: patient ambulated without ataxia into ED room. PSYCH: euthymic, cooperative, pleasant, appropriate speech Course Vital Signs Vital signs: Vital Signs Temperature 36.6 C 07/04/24 17:56 Pulse 77 07/04/24 17:56 Respiratory Rate 16 07/04/24 17:56 Blood Pressure 188/112 H 07/04/24 17:56 Pulse Oximetry 98 07/04/24 17:56 Temperature 36.6 C 07/04/24 17:56 Temperature Source Oral 07/04/24 17:56 Pulse 77 07/04/24 17:56 Respiratory Rate 16 07/04/24 17:56 Blood Pressure 188/112 H 07/04/24 17:56 Blood Pressure Position Sitting 07/04/24 17:56 Pulse Oximetry 98 07/04/24 17:56 Oxygen Delivery Method Room Air 07/04/24 17:56 Oxygen Flow Rate 0 07/04/24 17:56 Pain Level 8 07/04/24 17:56 Medical Decision Making This dictation utilizes [id number] dictation software and may contain unedited grammatical errors. 48 year-old female presents to ED today by POV/ambulating with a chief complaint of nausea/vomiting/diarrhea with onset Tuesday. Quality described as LLQ abdominal pain- seen last night and diagnosed with colitis, placed on Augmentin- reports intractable vomiting and inability to take her antibiotics, no radiation to fever, chest pain, shortness of breath, cough. Severity is described as 10/10. Palliating factors include nothing specific helping. Provoking factors include nothing specific. Patients' medical history: Diverticulosis, gastritis, status post cholecystectomy, esophageal stricture, GERD, COPD, anxiety. Family and social history: Noncontributory. Pertinent exam findings / vital signs include diffuse abdominal tenderness, active vomiting. Differential / pathologies of concern include intractable nausea vomiting, colitis, electrolyte abnormality. Diagnostic studies of: -CBC, CMP, lactate, CRP/ESR, magnesium, lipase, UA. -CBC shows leukocytosis that is declining from prior values -CRP/ESR is negative -Lactate negative -CMP shows hypokalemia 3.0, normal magnesium -Lipase negative -UA benign Interventions of: -IV Tylenol, Toradol, potassium and p.o. potassium, 1 L LR, Dilaudid 0.5, IV ampicillin-sulbactam, IV Compazine with relief of nausea. ED Course/Assessment/Plan: 48-year-old female presents with intractable nausea and vomiting after being diagnosed with colitis yesterday and started on Augmentin, she is unable to tolerate her p.o. antibiotics at home, give her plenty of analgesics as well as antiemetics and IV antibiotics, repleted her potassium, she tolerated p.o. intake, was sent home with p.o. Zofran and counseled significantly on slow hydration and nourishment with strict return criteria for any acute worsening despite treatment or other emergent concerns. Findings not consistent with surgical abdomen, dangerous electrolyte abnormality, sepsis. Disposition of vomiting. Patient verbalized understanding of the plan and return to ED criteria and engaged in shared decision making. Medical Records Medical records reviewed: Yes I reviewed the patient's medical records. Lab Data Lab results reviewed: Yes I reviewed the patient's lab results. Labs: Laboratory Tests Range/Units 07/04/24 07/04/24 19:00 20:11 WBC (4.4-10.8) 10^3/uL 14.29 H RBC (3.93-5.22) 10^6/uL 4.70 Hgb (11.2-15.7) g/dL 14.6 Hct (36.0-46.0) % 42.0 MCV (80-95) fL 89 MCH (27.0-33.0) pg 31.1 MCHC (32.0-36.0) % 34.8 RDW (11.7-14.6) % 12.4 Plt Count (130-400) 10^3/uL 312 MPV (8.0-11.0) fL 10.1 Immature Gran % % 0.3 Neutrophils % % 78.7 Lymphocytes % % 14.6 Monocytes % % 6.2 Eosinophils % % 0.0 Basophils % % 0.2 Nucleated RBC % (0.0-0.3) % 0.0 Absolute Neutrophils (1.2-6.7) 10^3/uL 11.25 H Absolute Lymphocytes (1.2-3.4) 10^3/uL 2.09 Absolute Monocytes (0.1-0.8) 10^3/uL 0.89 H Absolute Eosinophils (0.0-0.7) 10^3/uL 0.00 Absolute Basophils (0.0-0.2) 10^3/uL 0.03 ESR (0-20) mm/hr 14 VBG Lactate (<or=2.0) mmol/L 1.2 Sodium (136-145) mmol/L 136 Potassium (3.5-5.1) mmol/L 3.0 L Chloride (98-107) mmol/L 99 Carbon Dioxide (21.0-32.0) mmol/L 27.2 Anion Gap (3-11) mmol/L 9.8 BUN (7-18) mg/dL 6 L Creatinine (0.55-1.02) mg/dL 0.6 Est GFR (CKD-EPI 2020) (mL/min/1.73m2) 109.96 Glucose (74-106) mg/dL 126 H Calcium (8.5-10.1) mg/dL 9.1 Magnesium (1.8-2.4) mg/dL 2.1 Total Bilirubin (0.2-1.0) mg/dL 0.81 AST (15-37) U/L 27 ALT (14-59) U/L 43 Alkaline Phosphatase (46-116) U/L 120 H C-Reactive Protein (<or=0.5) mg/dL < 0.50 Total Protein (6.4-8.2) g/dL 7.3 Albumin (3.4-5.0) g/dL 3.8 Lipase (<78) U/L 28 Urine Color (Yellow) Yellow Urine Clarity (Clear) Clear Urine pH (5-8) 7.5 Ur Specific [place] (1.005-1.025) 1.015 Urine Protein (Neg-Trace) mg/dL Negative Urine Ketones (Negative) mg/dL 80 H Urine Blood (Negative) Trace-intact H Urine Nitrite (Negative) Negative Urine Bilirubin (Negative) Negative Urine Urobilinogen (Up to 0.2) mg/dL 0.2 Ur Leukocyte Esterase (Negative) Negative Urine RBC (0-2) HPF 0-2 Urine WBC (0-5) HPF Negative Ur Epithelial Cells (Negative) HPF Rare Urine Crystals (Negative) HPF Few Amorphous Urine Bacteria (Negative) HPF Rare Urine Casts (Negative) LPF Negative Urine Mucus (Negative) Trace Ur Culture Indicated? No Urine Glucose (Negative) mg/dL Negative Quality:SDOH Health Related Social Needs: No Data to Display PFSH All Active Problems (Updated 07/04/24 @ 22:31 by BRANT Coates) Vomiting (Acute) Esophageal stricture (Acute) GERD (gastroesophageal reflux disease) (Chronic) Colitis (Acute) Esophageal dysphagia (Chronic) Nocturnal myoclonus (Chronic) no improvement with Ropinirole. Leukocytosis (Chronic) chronic, prior eval with hematology at [facility] Sacroiliac joint dysfunction of right side (Chronic) Chronic pain (Chronic) Improved with duloxetine Smoker (Chronic) started age 16; 1 ppd Migraine (Chronic 07/06/11) 2 headaches / month; triggers are noxious smells Insomnia disorder (Chronic 05/01/15) Hyperlipidemia (Chronic) Gastroesophageal reflux disease (Chronic) per EGD-01/16; esophagitis on EGD 12/2022 Diarrhea (Chronic) chronic diarrhea Chronic obstructive lung disease (Chronic) Anxiety (Chronic) Working with Aubrey Gabriel Medical History DUB (dysfunctional uterine bleeding) Uterine fibroid Hiatal hernia (09/01/16) Diverticulosis (09/01/16) with history of diverticulitis Allergic eosinophilia INTRAEPITHELIAL EOSINOPHILS, 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 ADAMS PER EGD 09/01/16 DR. LOWRY-SEVERE GASTRITIS WITH AN ULCER Abnormal auditory perception of both ears (04/04/17) Abdominal pain (08/12/14) extensive workup at [facility] 2010- no specific cause Surgical History History of bilateral salpingo-oophorectomy Status post cholecystectomy Family History Mother , 69 Essential hypertension Heart disease Hyperlipidemia Myocardial infarction AFTER SURGERY AND BLEEDING W/ BLOOD CLOT TO THE HEART. Father Alcohol abuse Personal history of malignant neoplasm THROAT/LIVER/LUNG Brother Alcohol abuse Personal history of malignant neoplasm LIVER Grandfather Personal history of malignant neoplasm Heart disease Grandmother Essential hypertension Stroke Grandmother Personal history of malignant neoplasm Social History Smoking/Tobacco Use Status: Current every day Tobacco Type: cigarettes Smoking packs per day: 1 Smoking cigarettes per day: 20.0 Years smoked: 24 Smoking pack-years: 24.00 Tobacco: How many years used: 26 Quit status: considering quitting Second Hand Exposure: Yes Counseling given: provider counseling Smoking risk assessment performed?: Yes Alcohol Intake: never Drug use: Never Substance use type: does not use Caregiver/Support person: No Household members: spouse, children and other Details: [facility] Housing: house Number of Children: 2 Communication Needs: None Do you need help understanding health information?: Never current occupation: unable to work due to stomach problems Pets and animals: Yes Pets and animals: cat(s), dog(s) and farm animals Sexually active: Yes Do you think of yourself as: straight/heterosexual Current gender identity: decline to answer What is your relationship status?: How often do you talk on the phone with friends or family?: never How often do you get together with friends or relatives?: decline to answer How often do you attend yazdanism or sikhism services?: decline to answer Do you belong to any clubs or organized social groups?: no Panel score (0-1 are the most socially isolated patients): 1 What type of physical activity do you participate in: walking Duration: 15-30 minutes/day Frequency: 3-4 times per week Renetta/Gnosticism: None Seatbelt use: always Helmet use: Yes Drive intox or ride w/intox catshovel driver: No Do you feel safe at home: Yes Do you feel safe in your relationship?: Yes Additional Social history: Enjoys gardening.
[2024-07-04 18:23] VITALS: BP 188/112; PULSE 77; RESP 16; TEMP 36.6; O2SAT 98
[2024-07-04 19:03] LABS: Lactate 1.2 mmol/L (<or=2.0)
[2024-07-04 19:06] LABS: Abs Immature Grans 0.05 10^3/uL (0.0-0.06); Absolute Basophil Count 0.03 10^3/uL (0.0-0.2); Absolute Neutrophil Count 11.25 10^3/uL (1.2-6.7); Basophils % 0.2 %; HGB 14.6 g/dL (11.2-15.7); Immature Grans % 0.3 %; Lymphocytes % 14.6 %; MCH 31.1 pg (27.0-33.0); MCHC 34.8 % (32.0-36.0); MCV 89 fL (80-95); MPV 10.1 fL (8.0-11.0); Monocytes % 6.2 %; Neutrophils % 78.7 %; Platelet Count 312 10^3/uL (130-400); RDW 12.4 % (11.7-14.6); RDW-SD 40.7 fL; WBC 14.29 10^3/uL (4.4-10.8)
[2024-07-04 19:07] LABS: Absolute Lymphocyte Count 2.09 10^3/uL (1.2-3.4); Absolute Monocyte Count 0.89 10^3/uL (0.1-0.8); ESR 14 mm/hr (0-20)
[2024-07-04] MEDS: AMPICILLIN/SULBACTAM 3 GM in Normal Saline 100 ML IVPB (19:09)
[2024-07-04] MEDS: ACETAMINOPHEN 1,000 MG/100 ML BAG 400 MG IVPB (19:10)
[2024-07-04] MEDS: Prochlorperazine 10 MG/2 ML VIAL 5 MG IVP (19:10)
[2024-07-04] MEDS: Ketorolac 15 MG/ML VIAL IVP (19:10)
[2024-07-04 19:18] LABS: C-Reactive Protein < 0.50 mg/dL (<or=0.5); Lipase 28 U/L (<78); Magnesium 2.1 mg/dL (1.8-2.4)
[2024-07-04 19:22] LABS: ALT 43 U/L (14-59); AST 27 U/L (15-37); Albumin 3.8 g/dL (3.4-5.0); Alkaline Phosphatase 120 U/L (46-116); Anion Gap 9.8 mmol/L (3-11); BUN 6 mg/dL (7-18); Bilirubin, Total 0.81 mg/dL (0.2-1.0); CO2 27.2 mmol/L (21.0-32.0); CREATININE 0.6 mg/dL (0.55-1.02); Calcium 9.1 mg/dL (8.5-10.1); Chloride 99 mmol/L (98-107); Estimated GFR 109.96 (mL/min/1.73m2); Glucose 126 mg/dL (74-106); Sodium 136 mmol/L (136-145); Total Protein 7.3 g/dL (6.4-8.2)
[2024-07-04] MEDS: MAGNESIUM SULFATE 1 GM/100 ML BAG IV_INF (19:54)
[2024-07-04] MEDS: POTASSIUM CHLORIDE 20 MEQ/100 ML BAG 50 MEQ IV_INF (19:54)
[2024-07-04] MEDS: Potassium Chloride 20 MEQ TABCR 40 MEQ PO (19:55)
[2024-07-04 20:30] LABS: Bilirubin Negative (Negative); Blood Trace-intact (Negative); Clarity Clear (Clear); Glucose Negative (Negative); Ketones 80 mg/dL (Negative); Leukocyte Esterase Negative (Negative); Nitrite Negative (Negative); Specific Gravity 1.015 (1.005-1.025); Urobilinogen 0.2 mg/dL (Up to 0.2); pH 7.5 (5-8)
[2024-07-04 20:42] LABS: Bacteria Rare HPF (Negative); C & S Indicated? No; Casts Negative LPF (Negative); Crystals Few Amorphous HPF (Negative); Epithelial Cells Rare HPF (Negative); Mucus Trace (Negative); RBC 0-2 HPF (0-2); WBC Negative HPF (0-5)
[2024-07-04] MEDS: Lactated Ringers 1,000 ML 1000 ML IV (21:45)
[2024-07-04 22:46] VITALS: BP 151/106; PULSE 71; RESP 16; TEMP 36.7; O2SAT 96
== END 2024-07-04 23:09 | disposition home or self-care (01) ==
PROVIDERS: Emergency Provider Physician Assistant; PCP Family Medicine
DX: R11.2 Nausea with vomiting, unspecified (principal); E87.6 Hypokalemia; F17.210 Nicotine dependence, cigarettes, uncomplicated; Z90.49 Acquired absence of other specified parts of digestive tract
CPT/HCPCS: 36415; 80053; 83690; 85652; 96365; 96366; 96367; 96368; 96375; 99284; 81003; 81015; 83605; 83735; 85025; 86140; J0131; J0295; J0780; J1885; J3475; J3480

== ENCOUNTER 2024-07-17 08:26 | Day surgery (SDC) | payer SELFPAY ==
[2024-07-17 08:48] VITALS: BP 128/93; PULSE 95; RESP 16; TEMP 36.7; O2SAT 98
[2024-07-17] MEDS: Lactated Ringers 1,000 ML 80 ML IV (09:07)
--- NOTE | 2024-07-17 10:36 | W.ANESPRE ---
General Info Date of Service Date Performed: 07/17/24 Height: 5 ft 2 in Weight: 69.1 kg Body Mass Index (BMI): 27.8 Surgical Procedure: Operation Date: 07/17/24 09:50 Proposed Procedure Side Surgeon p Gastroscopy Ranjan Fournier MD Meds Allergies and Home Medications Allergies Allergy/AdvReac Type Severity Reaction Status Date / Time hydrocodone AdvReac Severe Restlessnes Verified 07/17/24 09:05 s nicotine AdvReac Severe Caused Verified 07/17/24 09:05 pain down extremity potassium chloride AdvReac Severe Swelling/Ed Unverified 07/17/24 09:06 rachelle ropinirole AdvReac Intermediate Insomnia, Verified 07/17/24 09:05 pounding heart amoxicillin AdvReac thrush Verified 07/17/24 09:05 bupropion (From Wellbutrin) AdvReac jitters Verified 07/17/24 09:05 gabapentin AdvReac sob Verified 07/17/24 09:05 tramadol AdvReac restlessnes Verified 07/17/24 09:05 s varenicline (From Chantix) AdvReac vomiting Verified 07/17/24 09:05 Home Medication ?Medication ?Instructions ?Recorded duloxetine 30 mg capsule,delayed 30 mg PO DAILY #90 caps 05/30/24 release pantoprazole 40 mg tablet,delayed 40 mg PO BID #180 tabs 05/30/24 release tiotropium bromide 1.25 2 puff inhalation Q24H #12 grams 05/30/24 mcg/actuation mist for inhalation (Spiriva Respimat) valacyclovir 500 mg tablet 500 mg PO BID PRN hsv #6 tabs 05/30/24 zolpidem 5 mg tablet 5 mg PO QHS PRN insomnia #30 tabs 05/30/24 cyclobenzaprine 5 mg tablet 5 mg PO QHS PRN muscle spasm #14 06/27/24 tabs ondansetron 8 mg disintegrating 8 mg PO Q8H PRN #30 tabs 07/03/24 tablet potassium chloride 20 mEq 20 meq PO DAILY #10 tabs 07/04/24 tablet,extended release sucralfate 1 gram tablet 1 g PO QACHS #90 tabs 07/05/24 Current Visit Medications: Current Medications Generic Name Dose Route Start Last Admin Trade Name Freq PRN Reason Stop Dose Admin Ringer's Solution 1,000 mls @ 80 mls/hr 07/17/24 06:00 07/17/24 09:07 IV 07/17/24 23:59 80 mls/hr INFUSION MONICA Administration IV Miscellaneous Supplies 1 each 07/17/24 06:00 Iv Access IV 07/17/24 23:59 DIRECTED MONICA Sodium Chloride 0 ml 07/17/24 06:00 Normal Saline Flush 10 Ml Syr IV 07/17/24 23:59 PRN PRN Sodium Chloride 0 ml 07/17/24 06:00 Normal Saline 10 Ml Vial IJ 07/17/24 23:59 DIRECTED PRN Sterile Water 0 ml 07/17/24 06:00 Water,Injection,Sterile 10 Ml Vial IJ 07/17/24 23:59 DIRECTED PRN PFSH Active Problems Active Problems: Problem Status Onset Code Vomiting Acute R11.10 Esophageal stricture Acute K22.2 GERD (gastroesophageal reflux disease) Chronic K21.9 Colitis Acute K52.9 Esophageal dysphagia Chronic R13.19 Nocturnal myoclonus Chronic G47.69 Leukocytosis Chronic D72.829 Sacroiliac joint dysfunction of right side Chronic M53.3 Chronic pain Chronic G89.29 Smoker Chronic F17.200 Migraine Chronic 07/06/11 G43.909 Insomnia disorder Chronic 05/01/15 G47.00 Hyperlipidemia Chronic E78.5 Gastroesophageal reflux disease Chronic K21.9 Diarrhea Chronic R19.7 Chronic obstructive lung disease Chronic J44.9 Anxiety Chronic F41.9 Medical History Medical History DUB (dysfunctional uterine bleeding) Uterine fibroid Hiatal hernia (09/01/16) Diverticulosis (09/01/16) with history of diverticulitis Allergic eosinophilia INTRAEPITHELIAL EOSINOPHILS, 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 ADAMS PER EGD 09/01/16 DR. LOWRY-SEVERE GASTRITIS WITH AN ULCER Abnormal auditory perception of both ears (04/04/17) Abdominal pain (08/12/14) extensive workup at [facility] [place] 2010- no specific cause Surgical History Surgical History History of bilateral salpingo-oophorectomy Status post cholecystectomy Tobacco Smoking/Tobacco Use Status: Current every day Tobacco Type: cigarettes Smoking packs per day: 1 Smoking cigarettes per day: 20.0 Years smoked: 24 Smoking pack-years: 24.00 Passive smoking exposure: Yes Second hand exposure: Yes Counseling given: provider counseling Alcohol Alcohol Intake: never Substance Use Substance use: Never Substance use type: does not use Details: 07/17/24- pt reports she smoked 2 cigarettes this morning Vital Signs and Lab Results Vital Signs Most Recent Vital Signs in EMR: Most Recent Vital Signs Temp Pulse Resp BP Pulse Ox 36.7 C 95 H 16 128/93 H 98 07/17/24 08:48 07/17/24 08:48 07/17/24 08:48 07/17/24 08:48 07/17/24 08:48 Point of Care Results Point of Care Results: POC- Test(urine) Negative 07/17/24 09:10 Lab Results Blood Type / Crossmatch: No Data to Display Complete Blood Count: White Blood Count 14.29 10^3/uL (4.4-10.8) H 07/04/24 19:00 Red Blood Count 4.70 10^6/uL (3.93-5.22) 07/04/24 19:00 Hemoglobin 14.6 g/dL (11.2-15.7) 07/04/24 19:00 Hematocrit 42.0 % (36.0-46.0) 07/04/24 19:00 Platelet Count 312 10^3/uL (130-400) 07/04/24 19:00 Venous Blood Lactate 1.2 mmol/L (<or=2.0) 07/04/24 19:00 Complete Metabolic Panel: Sodium 136 mmol/L (136-145) 07/04/24 19:00 Potassium 3.0 mmol/L (3.5-5.1) L 07/04/24 19:00 Chloride 99 mmol/L (98-107) 07/04/24 19:00 Carbon Dioxide 27.2 mmol/L (21.0-32.0) 07/04/24 19:00 BUN 6 mg/dL (7-18) L 07/04/24 19:00 Creatinine 0.6 mg/dL (0.55-1.02) 07/04/24 19:00 Est GFR (CKD-EPI 2020) 109.96 (mL/min/1.73m2) 07/04/24 19:00 Magnesium 2.1 mg/dL (1.8-2.4) 07/04/24 19:00 Calcium 9.1 mg/dL (8.5-10.1) 07/04/24 19:00 Albumin 3.8 g/dL (3.4-5.0) 07/04/24 19:00 Glucose 126 mg/dL (74-106) H 07/04/24 19:00 C-Reactive Protein < 0.50 mg/dL (<or=0.5) 07/04/24 19:00 Liver Function Panel: Alanine Aminotransferase (ALT/SGPT) 43 U/L (14-59) 07/04/24 19:00 Aspartate Amino Transf (AST/SGOT) 27 U/L (15-37) 07/04/24 19:00 Coagulation Panel: No Data to Display Cardiac Panel: No Data to Display Arterial Blood Gas: No Data to Display Venous Blood Gas: No Data to Display Pancreas Panel: Lipase 28 U/L (<78) 07/04/24 19:00 Thyroid Panel: No Data to Display Infectious Disease: No Data to Display Blood Cultures: No Data to Display Toxicology Panel: No Data to Display Panel: No Data to Display Anesthesia Assessment and Plan Anesthesia History Personal History: Other Family History: No Family History of Anesthesia Complications Exercise Tolerance Exercise Tolerance: Metabolic Equivalents>4 Pertinent Negatives Pertinent Negatives: No Symptoms of GERD Cardiac & Pulmonary Exam Cardiac Exam: Normal S1/S2 Heart Sounds Pulmonary Exam: Clear Bilateral Breath Sounds Implantable Cardiac Device Does patient have a Pacemaker or an ICD?: No Airway Exam Known Difficult Airway: No Mallampati Class: 2 Mouth Opening: Normal (> 3cm) Thyromental Distance: Greater than 3 cm Neck Range of Motion: Full ROM Neck Circumference: Normal Teeth Condition: Normal Dentition ASA Classification ASA Score: ASA 2 Emergency Case?: No NPO Status NPO Status: NPO Clears >2 hours, Solids >8 hours Status Status: Not Relevant due to Medical History Anesthesia Plan Resuscitation Status: Full Code Anesthesia Technique: General Anesthesia Airway Planned: Natural Airway Monitors Used: Standard Monitors Preoperative Comments:: smokes 1/2PPD
[2024-07-17 10:37] VITALS: BMI 27.8
--- NOTE | 2024-07-17 11:00 | STOM_PTH ---
PATIENT: Eli Garcia LOC: [facility] U#:[id number] AGE/SX: 48/F ROOM: RE07/17/[address]: Ranjan Fournier : 1975 BED: DIS: 07/17/2024 SPEC #: [id number] RECD: 07/17/24 12:26 STATUS: GINGER RE #: [id number] DIANA: 07/17/24 11:[address]: Ranjan Fournier DEPT: Surgical Specimen RECD BY: Lorie Galan ENTERED: 07/17/24 12:28 SP TYPE: STOMACH OTHR DR: Iraida Kumar Tissues: 1 - BIOPSY BOWEL 2 - STOMACH BIOPSY 3 - ESOPHAGUS BIOPSY Procedures: GROSS AND MICRO LEVEL 4 Comments: [id number]
[2024-07-17 11:08] VITALS: BP 112/84; PULSE 101; RESP 18; TEMP 36.3; O2SAT 94
--- NOTE | 2024-07-17 11:12 | W.ANESPOSTOP ---
Postoperative Evaluation Date, Time and Location Date Performed: 07/17/24 Time Performed: 11:12 Patient Location: Day Surgery Unit Vital Signs Most Recent Imported Vital Signs: Most Recent Vital Signs Temp Pulse Resp BP Pulse Ox 36.7 C 95 H 16 128/93 H 98 07/17/24 08:48 07/17/24 08:48 07/17/24 08:48 07/17/24 08:48 07/17/24 08:48 Pain Score Most Recent Pain Score: Most Recent Pain Score Pain Level 0 07/17/24 08:48 Assessment Mental Status: Awake (Alert & Oriented to Patient Baseline) Airway and Respiratory Function: Patent airway with normal (patient baseline) respiratory exam Cardiovascular Function: Hemodynamically Stable Hydration Status: Adequately Hydrated Nausea & Vomiting: No Nausea or Vomiting Pain: Pt. Denies Any Pain Peripheral Nerve Block: Patient did not receive a nerve block
--- NOTE | 2024-07-17 11:13 | W.PM.ENDDOP ---
Date of service: 07/17/24 Time of Service: 11:13 Endoscopy Report PROCEDURE DESCRIPTION: PROCEDURES PERFORMED: 1. EGD with biopsies PREOPERATIVE DIAGNOSIS: Dysphagia POSTOPERATIVE DIAGNOSIS: Duodenitis, bile reflux, moderate(2-3cm) type III paraesophageal hernia(Hill grade 3) SURGEON: Carloz Fournier MD INDICATION FOR PROCEDURE: 48-year-old woman who has had long?standing dysphagia and stomach issues for a long time. She says she knows she has a hiatal hernia. She knows that she has bile reflux. She has been struggling with dysphagia for quite some time and sometimes feels like she chokes on her own saliva and simple foods and fluids FINDINGS: D2/D3 = normal D1/bulb = normal -mildly inflamed, cold forceps biopsies taken Pylorus = normal Antrum = mildly irritated appearance, no ulcers, cold forceps biopsies were taken to rule out H. pylori routinely Body = significant amount of visible bile was pooled in the stomach/fundus Fundus = normal, no polyps Cardia = normal Hiatus = Hill grade 3 hiatal defect and visible hiatal hernia. Careful assessment shows it is a moderate?size type III paraesophageal hernia. Distal esophagus = no inflammation, no esophagitis, no Monique's, no stricture. I took biopsies of the mucosa to assess for possible underlying eosinophilic esophagitis. It is visibly obvious that there is some mechanical kinking that occurs secondary to the paraesophageal hernia and there is an accordion?like folding action that takes place visually. This is probably the cause of the dysphagia Mid esophagus = normal Proximal esophagus/hypopharynx/vocal cords = normal SURVEILLANCE-INTERVAL/FOLLOW-UP: Follow-up in the office to discuss findings and next steps. The dysphagia is related to the hiatal hernia. A lot of her other issues are probably bile reflux mediated. A course forward will depend on specific and unique goals since there are multiple problems going on. Specimens: Yes EBL: Minimal COMPLICATIONS: None Procedure in detail: The patient gave written consent and was in agreement with the indications, the potential risks as well as the benefits of the procedure. The patient was taken to the endoscopy suite and laid on their left side. Anesthesia was given which was tolerated well. We performed a timeout and we are in agreement I started the procedure. A well-lubricated endoscope was gently and carefully advanced down the esophagus, into the stomach the scope was and through the pylorus into the duodenum. The scope was then slowly withdrawn with the above-noted findings/interventions. The patient tolerated the procedure well and was taken to recovery.
--- NOTE | 2024-07-17 11:19 | PDOC.DSDIS_ITS ---
Date of service: 07/17/24 Discharge Plan Disposition Patient Disposition: Home Condition: Good Discharge Details Attending Provider: Ranjan Fournier Primary Care Provider: Iraida Kumar Home Meds and New Rx's Prescriptions: No Action valacyclovir 500 mg tablet 500 mg PO BID PRN (Reason: hsv) Qty: 6 1RF Rx Instructions: Take bid for 3 days. duloxetine 30 mg capsule,delayed release(DR/EC) 30 mg PO DAILY Qty: 90 3RF Spiriva Respimat 1.25 mcg/actuation mist 2 puff inhalation Q24H Qty: 12 3RF zolpidem 5 mg tablet 5 mg PO QHS PRN (Reason: insomnia) Qty: 30 5RF pantoprazole 40 mg tablet,delayed release (DR/EC) 40 mg PO BID Qty: 180 3RF cyclobenzaprine 5 mg tablet 5 mg PO QHS PRN (Reason: muscle spasm) Qty: 14 0RF sucralfate 1 gram tablet 1 g PO QACHS Qty: 90 0RF ondansetron 8 mg tablet,disintegrating 8 mg PO Q8H PRNQty: 30 0RF potassium chloride 20 mEq tablet extended release 20 meq PO DAILY Qty: 10 0RF Discharge Instructions Additional Instructions: FINDINGS: Bile reflux was again seen. This is sometimes seen after gallbladder surgery. It is a poorly?understood problem with equally poorly?understood management strategies and no clear-cut way to fix it. This would have no impact on your swallowing however. You have a moderate?size hiatal hernia. This is specifically called a type III paraesophageal hernia and this is causing a kink to occur in your esophagus when you swallow. Much like an accordion has kinks in it. Hiatal hernias can be surgically repaired. If you want to discuss the findings and next steps further, you can schedule follow-up office in the office for discussion. This is optional and you can also follow-up with your PCP if you would rather do so. You do NOT have an esophagus stricture and there is NOT a disease entity that c an be stretched to relieve your swallowing problems. Stand Alone Forms: Anesthesia Discharge Inst., Colonoscopy Post Instructions, Sherrill Bertrand (DSU) Activity:: Activity as Tolerated Diet:: As Tolerated
[2024-07-17 11:37] VITALS: BP 123/77; PULSE 86; RESP 18; TEMP 36.4; O2SAT 95
== END 2024-07-17 11:52 | disposition home or self-care (01) ==
PROVIDERS: PCP Family Medicine; Visit Provider Student in an Organized Health Care Education/Training Program
PROC: 0DJ68ZZ Inspection of Stomach, Via Natural or Artificial Opening Endoscopic (ICD-10-PCS; CPT 43235; principal; 2024-07-17 09:45)
DX: K29.80 Duodenitis without bleeding (principal); K29.60 Other gastritis without bleeding; K44.9 Diaphragmatic hernia without obstruction or gangrene; K21.00 Gastro-esophageal reflux disease with esophagitis, without bleeding
CPT/HCPCS: 43239; 81025; 88305; J2003; J2704

== ENCOUNTER 2024-09-05 01:41 | Outpatient (CLI) | payer SELFPAY ==
[2024-09-05 17:31] LABS: Anion Gap 6.6 mmol/L (3-11); BUN 8 mg/dL (7-18); CO2 30.4 mmol/L (21.0-32.0); CREATININE 0.7 mg/dL (0.55-1.02); Calcium 9.7 mg/dL (8.5-10.1); Chloride 105 mmol/L (98-107); Estimated GFR 105.95 (mL/min/1.73m2); Glucose 98 mg/dL (74-106); Magnesium 2.2 mg/dL (1.8-2.4); Potassium 4.2 mmol/L (3.5-5.1); Sodium 142 mmol/L (136-145); Vitamin D 25 Total 16 ng/mL (30-100)
== END 2024-09-05 01:42 | disposition home or self-care (01) ==
LOC: LBO 01:42
PROVIDERS: PCP Family Medicine; Visit Provider Family Medicine
DX: E55.9 Vitamin D deficiency, unspecified (principal); E87.6 Hypokalemia
CPT/HCPCS: 36415; 80048; 82306; 83735

== ENCOUNTER 2024-10-24 15:15 | Emergency (ER) | payer SELFPAY ==
[2024-10-24 15:16] VITALS: BP 165/108; PULSE 80; RESP 20; TEMP 36.3; O2SAT 96
[2024-10-24 15:21] VITALS: BP 165/108; PULSE 80; RESP 20; TEMP 36.3; O2SAT 96
--- NOTE | 2024-10-24 16:15 | DI.CT_ITS ---
Exam(s) CT ABDOMEN PELVIS W EXAM: CT ABDOMEN PELVIS W CLINICAL HISTORY: LUQ abd pain, N/V. TECHNIQUE: Imaging Protocol: Axial computed tomography images with coronal and sagittal reformatted images were created and reviewed CONTRAST MATERIAL: Intravenous: Omnipaque 350 Contrast volume:75 ml Oral: no COMPARISON: No exams were available for comparison FINDINGS: ABDOMEN and PELVIS: Lung Bases: No acute findings. Small hiatal hernia. Liver: Normal density. No suspicious mass. Gallbladder and biliary tract: Cholecystectomy. No biliary dilation. Pancreas: Normal density. No abnormal calcifications or inflammatory process. No evidence of mass. Spleen: Normal. Kidneys: Normal size, contour and axis. No radiodense stones. No obstructive uropathy. No suspicious masses seen. Adrenal glands: No masses seen. Vasculature: Abdominal aorta non-dilated. Soft tissues: Unremarkable. Bladder: No gross wall thickening. No calculi.No focal mass. Bowel: Stomach is unremarkable. The small bowel is nondistended. There is very little fecal material in the colon. Mild diverticulosis. No evidence of diverticulitis. No obstruction. No bowel wall thickening. Appendix normal. Peritoneal cavity: No ascites. No focal collection. No mesenteric inflammatory response. No free air. Bones: Unremarkable for age. Reproductive organs: Unremarkable. Lymph nodes: No pathologically enlarged lymph nodes. IMPRESSION:: No acute abnormality in the abdomen or pelvis. RADIATION DOSE DELIVERED: Total DLP DATA REPOSITORY: All CT scans at this facility are submitted to the National Radiology Data Registry (NRDR) Dose Index Registry (DIR) with the [employer] ([employer]). RADIATION OPTIMIZATION: All CT scans at this facility use at least one of these dose optimization techniques: automated exposure control; mA and/or kV adjustment per patient size (includes targeted exams where dose is matched to clinical indication); or iterative reconstruction.
[2024-10-24 16:18] LABS: Bilirubin Negative (Negative); Blood Negative (Negative); Clarity Clear (Clear); Glucose Negative (Negative); Ketones >=160 mg/dL (Negative); Leukocyte Esterase Negative (Negative); Nitrite Negative (Negative); Urobilinogen 0.2 mg/dL (Up to 0.2); pH >= 9.0 (5-8)
--- NOTE | 2024-10-24 16:25 | ED.GENADUL_ITS ---
Discharge Plan Disposition Patient Disposition: Home Condition: Stable Discharge Details Clinical Impression: Vomiting Primary Care Provider: Iraida Kumar ED Provider: Shanel Posada Home Meds and New Rx's Prescriptions: New promethazine 12.5 mg suppository 12.5 mg AL Q6H PRN (Reason: nausea and vomiting) Qty: 12 0RF Rx Instructions: Thanks 1 suppository per rectum 6 hours as needed for nausea and vomiting metoclopramide HCl [Reglan] 5 mg tablet 5 mg PO QACHS PRN (Reason: nausea and vomiting) Qty: 10 0RF Rx Instructions: Please take 1 tablet by mouth on meals and at bedtime as needed for nausea or vomiting. No Action duloxetine 30 mg capsule,delayed release(DR/EC) 30 mg PO DAILY Qty: 90 3RF Spiriva Respimat 1.25 mcg/actuation mist 2 puff inhalation Q24H Qty: 12 3RF zolpidem 5 mg tablet 5 mg PO QHS PRN (Reason: insomnia) Qty: 30 5RF pantoprazole 40 mg tablet,delayed release (DR/EC) 40 mg PO BID Qty: 180 3RF cholecalciferol (vitamin D3) 1,250 mcg (50,000 unit) capsule 1,250 mcg PO QWEEK 56 Days Qty: 8 0RF Rx Instructions: Take one 50,000 unit capsule by mouth once weekly with food. multivitamin Tablet 1 tab PO DAILY cholecalciferol (vitamin D3) 125 mcg (5,000 unit) capsule 125 mcg PO DAILY ondansetron 8 mg tablet,disintegrating 8 mg PO Q8H PRNQty: 30 0RF Discharge Instructions Instructions: Nausea and Vomiting, Adult ED Additional Instructions: At this time your workup is largely unremarkable. CT shows no signs of infection no inflammation in the lining of your bowel, no obstruction no urinary tract infection. It does appear that you have some dehydration to go along with this however your potassium and sodium were within normal limits. Please continue to sip on Gatorade or similar while having vomiting or loose stools. Clear liquids for the next 2-3 days advance as tolerated. Stay away from anything fried fatty spicy or dairy. Advance with a bland diet as tolerated. Bananas rice apples toast. Take the nausea medications as needed. If you are actively vomiting use the rectal suppositories. If you are not actively vomiting you may try the oral medication. Please do not use them together at the same time. Follow up with primary care provider in 3-5 days. Return to ED sooner if any worsening or concerns. Referrals: Iraida Kumar MD [Primary Care Provider, Medicine] - 3 days Clinical Impression: Vomiting HPI General Mode of arrival: ambulatory . Date/Time Provider Initiated Documentation: 10/24/24 15:45 . Limitations to Documentation: no limitations . Information obtained by: patient, RN notes reviewed and old records reviewed . HPI Narrative: 49 year old female presents to ED with N/V and loose stools which began 3-4 days ago. Endorses chills, LUQ abd pain. Hx of Diverticulosis, acute gastritis, Colitis, sHx Cholecystectomy, , Bilateral salpingo-oophrectomy. Daily smoker, denies ETOh or drugs. Last took Zofran around 1330. Related Data Home Medications ?Medication ?Instructions ?Recorded ?Confirmed duloxetine 30 mg capsule,delayed 30 mg PO DAILY #90 ca ps 05/30/24 10/24/24 release pantoprazole 40 mg tablet,delayed 40 mg PO BID #180 ta bs 05/30/24 10/24/24 release tiotropium bromide 1.25 2 puff inhalation Q24H #12 g yosvany 05/30/24 10/24/24 mcg/actuation mist for inhalation (Spiriva Respimat) zolpidem 5 mg tablet 5 mg PO QHS PRN insomnia #30 tabs 05/30/24 10/24/24 ondansetron 8 mg disintegrating 8 mg PO Q8H PRN #30 ta bs 07/03/24 10/24/24 tablet cholecalciferol (vitamin D3) 125 125 mcg PO DAILY 09/3010/24/24 mcg (5,000 unit) capsule Held on 09/13/24. Instructions: Home Medication placed on hold at Doctor's office multivitamin 1 tab PO DAILY 09/10/2410/07 cholecalciferol (vitamin D3) 1,250 1,250 mcg PO QWEEK 8 weeks #8 caps 09/13/24 10/24/24 mcg (50,000 unit) capsule metoclopramide HCl 5 mg tablet 5 mg PO QACHS PRN nause a and 10/24/24 (Reglan) vomiting #10 tabs promethazine 12.5 mg rectal 12.5 mg AL Q6H PRN nausea and 10/24/24 suppository vomiting #12 ea Previous Rx's ?Medication ?Instructions ?Recorded duloxetine 30 mg capsule,delayed 30 mg PO DAILY #90 ca ps 05/30/24 release pantoprazole 40 mg tablet,delayed 40 mg PO BID #180 ta bs 05/30/24 release tiotropium bromide 1.25 2 puff inhalation Q24H #12 g yosvany 05/30/24 mcg/actuation mist for inhalation (Spiriva Respimat) zolpidem 5 mg tablet 5 mg PO QHS PRN insomnia #30 tabs 05/30/24 ondansetron 8 mg disintegrating 8 mg PO Q8H PRN #30 ta bs 07/03/24 tablet cholecalciferol (vitamin D3) 1,250 1,250 mcg PO QWEEK 8 weeks #8 caps 09/13/24 mcg (50,000 unit) capsule metoclopramide HCl 5 mg tablet 5 mg PO QACHS PRN nause a and 10/24/24 (Reglan) vomiting #10 tabs promethazine 12.5 mg rectal 12.5 mg AL Q6H PRN nausea and 10/24/24 suppository vomiting #12 ea Allergies Allergy/AdvReac Type Severity Reaction Status Date / Time hydrocodone AdvReac Severe Restlessnes Verified 10/24/24 15:23 s nicotine AdvReac Severe Caused Verified 10/24/24 15:23 pain down extremity potassium chloride AdvReac Severe Swelling/Ed Unverified 10/24/24 15:23 rachelle ropinirole AdvReac Intermediate Insomnia, Verified 10/24/24 15:23 pounding heart amoxicillin AdvReac thrush Verified 10/24/24 15:23 bupropion (From Wellbutrin) AdvReac jitters Verified 10/24/24 15:23 gabapentin AdvReac sob Verified 10/24/24 15:23 tramadol AdvReac restlessnes Verified 10/24/24 15:23 s varenicline (From Chantix) AdvReac vomiting Verified 10/24/24 15:23 General Stated Complaint: Abd Prob ROSI: 3 Review of Systems All systems reviewed & are unremarkable except as noted in HPI and below Gastrointestinal Gastrointestinal: Reports as per HPI, Reports abdominal pain, Denies melena, Denies hematochezia, Reports loose stools, Reports nausea and Reports vomiting Exam Narrative Exam Narrative: Constitutional: Alert and oriented x3. Appears stated age. Normal body habitus. Head: Normocephalic, no trauma. Eyes: Pupils PERRL, Red reflex noted, EOM's intact. Eyelids symmetrical without lesions, discharge, or swelling. ENT: Bilateral TM's WNL, External ear normal to inspection, no mastoid TTP, swelling, or erythema, Nasal turbinates WNL, no nasal discharge. Normal dentition, Posterior pharynx WNL, no exudate. Chest: RRR, Normal S1, S2, distal pulses intact. Resp: Lungs clear to auscultation bilaterally, no wheezes, rales, or rhonchi. Abdomen: Soft, non-distended, Normoactive bowel sounds all 4 quads. Musculoskeletal: Normal gait, Moves all 4 extremities without difficulty. Skin: No suspicious rashes or lesions. Capillary refill less than 2 sec. Neurologic: Cranial nerves II-XII intact. Alert and oriented x 3. Motor: No deficits noted. Sensory: Intact bilaterally all 4 extremities. Hematologic/Lymphatic: No ecchymosis, no lymphadenopathy. Course Vital Signs Vital signs: Vital Signs Temperature 36.3 C L 10/24/24 15:16 Pulse 80 10/24/24 15:16 Respiratory Rate 20 10/24/24 15:16 Blood Pressure 165/108 H 10/24/24 15:16 Pulse Oximetry 96 10/24/24 15:16 Temperature 36.3 C L 10/24/24 15:21 Pulse 80 10/24/24 15:21 Respiratory Rate 20 10/24/24 15:21 Blood Pressure 165/108 H 10/24/24 15:21 Blood Pressure Position Sitting 10/24/24 15:21 Pulse Oximetry 96 10/24/24 15:21 Oxygen Delivery Method Room Air 10/24/24 15:21 Oxygen Flow Rate 0 10/24/24 15:21 Lab/Test Results Lab/Test Results: Laboratory Tests Range/Units 10/24/24 16:06 Urine Color (Yellow) Yellow Urine Clarity (Clear) Clear Urine pH (5-8) >= 9.0 H Ur Specific [place] (1.005-1.025) 1.020 Urine Protein (Neg-Trace) mg/dL 30 H Urine Ketones (Negative) mg/dL >=160 H Urine Blood (Negative) Negative Urine Nitrite (Negative) Negative Urine Bilirubin (Negative) Negative Urine Urobilinogen (Up to 0.2) mg/dL 0.2 Ur Leukocyte Esterase (Negative) Negative Urine Glucose (Negative) mg/dL Negative Medical Decision Making 49 year old female presents to ED with N/V and loose stools which began 3-4 days ago. Endorses chills, LUQ abd pain. Hx of Diverticulosis, acute gastritis, Colitis, sHx Cholecystectomy, , Bilateral salpingo-oophrectomy. Daily smoker, denies ETOh or drugs. Last took Zofran around 1330. UA shows greater than 160 ketones, Negative Leuks negative Nitrates, labs including CBC, CMP, Lipase pending Liter NS and 4mg Zofran IV orderd, CT abd pelvis w Diff Dx includes colitis, gastroenteritis, cyclical vomiting syndrome, Diverticulitis, pancreatitis, viral illness. 1753: The patient reevaluation she reports that she was still feeling somewhat nauseous and still complaining of some left upper quadrant abdominal pain. Ketorolac 50 mg and Reglan 10 mg IV ordered. Patient has received a liter of normal saline. CT shows no acute abnormality in the abdomen, labs are largely at baseline, no evidence for urinary tract infection. White blood cell count is 16 however patient does have a history of leukocytosis. Informed by chief of staff doctor that patient is dry heaving, EKG ordered will consider droperidol if QT within typical limits. Expected disposition hopefully is discharged home with Reglan and Phenergan suppositories. Essentially negative workup at this time. EKG shows QT 463 which is acceptable, 2.5 mg of droperidol IV ordered. No further emesis noted however patient still complaining of some abdominal pain. GI cocktail ordered. P.o. challenge performed by ED staff patient able to tolerate p.o. without any additional emesis. Patient to be discharged home with strict follow-up care. Patient given prescription for Reglan for the next 5 days suspect cyclical vomiting noted. This text was generated using [employer] system, please disregard any oddities of phrase or misspellings. Medical Records Medical records reviewed: Yes I reviewed the patient's medical records. Lab Data Lab results reviewed: Yes I reviewed the patient's lab results. Labs: Laboratory Tests Range/Units 10/24/24 10/24/24 16:06 16:18 WBC (4.4-10.8) 10^3/uL 16.12 H RBC (3.93-5.22) 10^6/uL 5.01 Hgb (11.2-15.7) g/dL 15.4 Hct (36.0-46.0) % 44.9 MCV (80-95) fL 90 MCH (27.0-33.0) pg 30.7 MCHC (32.0-36.0) % 34.3 RDW (11.7-14.6) % 12.7 Plt Count (130-400) 10^3/uL 353 MPV (8.0-11.0) fL 10.7 Immature Gran % % 0.4 Neutrophils % % 84.5 Lymphocytes % % 12.0 Monocytes % % 2.6 Eosinophils % % 0.1 Basophils % % 0.4 Nucleated RBC % (0.0-0.3) % 0.0 Absolute Neutrophils (1.2-6.7) 10^3/uL 13.62 H Absolute Lymphocytes (1.2-3.4) 10^3/uL 1.93 Absolute Monocytes (0.1-0.8) 10^3/uL 0.42 Absolute Eosinophils (0.0-0.7) 10^3/uL 0.02 Absolute Basophils (0.0-0.2) 10^3/uL 0.06 Sodium (136-145) mmol/L 140 Potassium (3.5-5.1) mmol/L 3.7 Chloride (98-107) mmol/L 102 Carbon Dioxide (21.0-32.0) mmol/L 22.3 Anion Gap (3-11) mmol/L 15.7 H BUN (7-18) mg/dL 9 Creatinine (0.55-1.02) mg/dL 0.6 Est GFR (CKD-EPI 2020) (mL/min/1.73m2) 109.28 Glucose (74-106) mg/dL 164 H Calcium (8.5-10.1) mg/dL 9.5 Magnesium (1.8-2.4) mg/dL 1.9 Total Bilirubin (0.2-1.0) mg/dL 0.6 AST (15-37) U/L 18 ALT (14-59) U/L 29 Alkaline Phosphatase (46-116) U/L 144 H Total Protein (6.4-8.2) g/dL 7.9 Albumin (3.4-5.0) g/dL 4.0 Lipase (<78) U/L 31 Urine Color (Yellow) Yellow Urine Clarity (Clear) Clear Urine pH (5-8) >= 9.0 H Ur Specific [place] (1.005-1.025) 1.020 Urine Protein (Neg-Trace) mg/dL 30 H Urine Ketones (Negative) mg/dL >=160 H Urine Blood (Negative) Negative Urine Nitrite (Negative) Negative Urine Bilirubin (Negative) Negative Urine Urobilinogen (Up to 0.2) mg/dL 0.2 Ur Leukocyte Esterase (Negative) Negative Urine RBC (0-2) HPF 3-5 H Urine WBC (0-5) HPF Negative Ur Epithelial Cells (Negative) HPF Rare Urine Crystals (Negative) HPF Moderate Amorphous Urine Bacteria (Negative) HPF Moderate Urine Casts (Negative) LPF 0-2 Hyaline Urine Mucus (Negative) Negative Ur Culture Indicated? No Urine Glucose (Negative) mg/dL Negative PFSH All Active Problems (Updated 10/24/24 @ 18:27 by Shanel Posada NP) Vomiting (Acute) Low vitamin D level (Acute) Vomiting (bilious) following gastrointestinal surgery (Acute) Hiatal hernia (Chronic 09/01/16) stage 3 paraesophageal hernia on EGD 07/2024 Nocturnal myoclonus (Chronic) no improvement with Ropinirole. Leukocytosis (Chronic) chronic, prior eval with hematology at [facility] Sacroiliac joint dysfunction of right side (Chronic) Chronic pain (Chronic) Improved with duloxetine Smoker (Chronic) started age 16; 1 ppd Migraine (Chronic 07/06/11) 2 headaches / month; triggers are noxious smells Insomnia disorder (Chronic 05/01/15) Hyperlipidemia (Chronic) Gastroesophageal reflux disease (Chronic) per EGD-01/16; esophagitis on EGD 12/2022; esophagitis on EGD 07/2024 Diarrhea (Chronic) chronic diarrhea Chronic obstructive lung disease (Chronic) Anxiety (Chronic) Working with Aubrey Gabriel Medical History (Updated 10/24/24 @ 18:27 by Shanel Posada NP) DUB (dysfunctional uterine bleeding) Uterine fibroid Diverticulosis (09/01/16) with history of diverticulitis Allergic eosinophilia INTRAEPITHELIAL EOSINOPHILS, 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 ADAMS PER EGD 09/01/16 DR. LOWRY-SEVERE GASTRITIS WITH AN ULCER Abnormal auditory perception of both ears (04/04/17) Abdominal pain (08/12/14) extensive workup at [facility] [place] 2010- no specific cause Surgical History (Updated 07/23/24 @ 09:56 by Natali Raymundo) History of esophagogastroduodenoscopy (~07/2024) History of bilateral salpingo-oophorectomy Status post cholecystectomy Family History Mother , 69 Essential hypertension Heart disease Hyperlipidemia Myocardial infarction AFTER SURGERY AND BLEEDING W/ BLOOD CLOT TO THE HEART. Father Alcohol abuse Personal history of malignant neoplasm THROAT/LIVER/LUNG Brother Alcohol abuse Personal history of malignant neoplasm LIVER Grandfather Personal history of malignant neoplasm Heart disease Grandmother Essential hypertension Stroke Grandmother Personal history of malignant neoplasm Social History Smoking/Tobacco Use Status: Current every day Tobacco Type: cigarettes Smoking packs per day: 1 Smoking cigarettes per day: 20.0 Years smoked: 24 Smoking pack- years: 24.00 Tobacco: How many years used: 26 Quit status: considering quitting Second Hand Exposure: Yes Counseling given: provider counseling Smoking risk assessment performed?: Yes Alcohol Intake: never Drug use: Never Substance use type: does not use Details: 07/17/24- pt reports she smoked 2 cigarettes this chemotherapist/Support person: No Household members: spouse, children and other Details: [facility] Housing: house Number of Children: 2 Communication Needs: None Do you need help understanding health information?: Never current occupation: unable to work due to stomach problems Pets and animals: Yes Pets and animals: cat(s), dog(s) and farm animals Sexually active: Yes Do you think of yourself as: straight/heterosexual Current gender identity: decline to answer What is your relationship status?: How often do you talk on the phone with friends or family?: never How often do you get together with friends or relatives?: decline to answer How often do you attend voodoo or yazidi services?: decline to answer Do you belong to any clubs or organized social groups?: no Panel score (0-1 are the most socially isolated patients): 1 What type of physical activity do you participate in: walking Duration: 15-30 minutes/day Frequency: 3-4 times per week Renetta/Taoism: None Seatbelt use: always Helmet use: Yes Drive intox or ride w/intox tour bus driver: No Do you feel safe at home: Yes Do you feel safe in your relationship?: Yes
[2024-10-24 16:26] LABS: Abs Immature Grans 0.07 10^3/uL (0.0-0.06); Absolute Basophil Count 0.06 10^3/uL (0.0-0.2); Absolute Lymphocyte Count 1.93 10^3/uL (1.2-3.4); Absolute Monocyte Count 0.42 10^3/uL (0.1-0.8); Basophils % 0.4 %; Eosinophils % 0.1 %; HCT 44.9 % (36.0-46.0); HGB 15.4 g/dL (11.2-15.7); Immature Grans % 0.4 %; MCH 30.7 pg (27.0-33.0); MCHC 34.3 % (32.0-36.0); MCV 90 fL (80-95); MPV 10.7 fL (8.0-11.0); Monocytes % 2.6 %; Neutrophils % 84.5 %; Platelet Count 353 10^3/uL (130-400); RBC 5.01 10^6/uL (3.93-5.22); RDW 12.7 % (11.7-14.6); RDW-SD 41.7 fL; WBC 16.12 10^3/uL (4.4-10.8)
[2024-10-24 16:27] LABS: Absolute Eosinophil Count 0.02 10^3/uL (0.0-0.7); Absolute Neutrophil Count 13.62 10^3/uL (1.2-6.7)
[2024-10-24 16:27] LABS: Epithelial Cells Rare HPF (Negative); WBC Negative HPF (0-5)
[2024-10-24 16:28] LABS: Bacteria Moderate HPF (Negative); C & S Indicated? No; Casts 0-2 Hyaline LPF (Negative); Crystals Moderate Amorphous HPF (Negative); Mucus Negative (Negative)
[2024-10-24] MEDS: Normal Saline Flush 10 ML SYR IVP ×2 (16:38→18:09)
[2024-10-24] MEDS: Ondansetron 4 MG/2 ML VIAL IVP (16:38)
[2024-10-24] MEDS: Normal Saline 500 ML 1000 ML IV ×2 (16:38→17:28)
[2024-10-24 16:48] LABS: ALT 29 U/L (14-59); AST 18 U/L (15-37); Alkaline Phosphatase 144 U/L (46-116); Anion Gap 15.7 mmol/L (3-11); BUN 9 mg/dL (7-18); Bilirubin, Total 0.6 mg/dL (0.2-1.0); CO2 22.3 mmol/L (21.0-32.0); CREATININE 0.6 mg/dL (0.55-1.02); Calcium 9.5 mg/dL (8.5-10.1); Chloride 102 mmol/L (98-107); Estimated GFR 109.28 (mL/min/1.73m2); Glucose 164 mg/dL (74-106); Lipase 31 U/L (<78); Magnesium 1.9 mg/dL (1.8-2.4); Potassium 3.7 mmol/L (3.5-5.1); Sodium 140 mmol/L (136-145); Total Protein 7.9 g/dL (6.4-8.2)
[2024-10-24] MEDS: Normal Saline - Diluent 50 ML VIAL IJ (17:31)
[2024-10-24] MEDS: Omnipaque 350 MG/ML 100 ML BTL 75 ML IJ (17:34)
[2024-10-24] MEDS: Ketorolac 15 MG/ML VIAL IVP (18:08)
[2024-10-24] MEDS: Metoclopramide 10 MG/2 ML VIAL IVP (18:08)
[2024-10-24] MEDS: Normal Saline 500 ML IV (18:08)
[2024-10-24] MEDS: Famotidine 20 MG/2 ML VIAL IVP (18:09)
--- NOTE | 2024-10-24 18:30 | RT.EKG_ITS ---
APPROVED REPORT Exam: Resting ECG Reason for Exam: Eval QT Patient Location: E HR:62 bpm ECG Measurements Heart Rate 62 AXIS NM 139 P 67 QRSd 100 QRS 68 QT 463 T 80 QTc 473 Conclusion Sinus rhythm normal axis no stemi
[2024-10-24] MEDS: Droperidol 5 MG/2 ML VIAL 2.5 MG IVP (19:22)
[2024-10-24] MEDS: Lidocaine 2% Viscous 15 ML CUP PO (20:15)
[2024-10-24] MEDS: Mylanta Suspension 30 ML CUP PO (20:15)
[2024-10-24 20:47] VITALS: BP 182/92; PULSE 73; RESP 22; TEMP 36.3; O2SAT 98
== END 2024-10-24 20:47 | disposition home or self-care (01) ==
PROVIDERS: Emergency Provider Registered Nurse Emergency; PCP Family Medicine
DX: R10.12 Left upper quadrant pain (principal); R11.2 Nausea with vomiting, unspecified; Z87.19 Personal history of other diseases of the digestive system
CPT/HCPCS: 99284; 99285; 96374; 96375; 36415; 80053; 83690; 93005; 96361; 74177; 81003; 81015; 83735; 85025; 93010; J1790; J1885; J2405; J2765; J3490

== ENCOUNTER 2024-11-30 16:27 | Outpatient (CLI) | payer SELFPAY ==
[2024-11-30 17:36] LABS: Vitamin D 25 Total 35 ng/mL (30-100)
== END 2024-11-30 16:28 | disposition home or self-care (01) ==
LOC: LBO 16:29
PROVIDERS: PCP Family Medicine; Visit Provider Family Medicine
DX: R79.89 Other specified abnormal findings of blood chemistry (principal)
CPT/HCPCS: 36415; 82306

== ENCOUNTER 2024-12-07 10:13 | Emergency (ER) | payer SELFPAY ==
[2024-12-07 10:23] VITALS: BP 136/105; PULSE 98; RESP 16; TEMP 36.9; O2SAT 94
--- NOTE | 2024-12-07 10:45 | DI.CT_ITS ---
Exam(s) CT ABDOMEN PELVIS W EXAM: CT ABDOMEN PELVIS W CLINICAL HISTORY: abd pain and bloody stool. TECHNIQUE: Imaging Protocol: Axial computed tomography images with coronal and sagittal reformatted images were created and reviewed CONTRAST MATERIAL: Intravenous: Omnipaque-350 100cc Oral: None COMPARISON: CT CT ABDOMEN PELVIS W from 10/24/2024 FINDINGS: VISUALIZED LUNG BASES: No nodules nor pleural effusions evident. ABDOMEN: There is no ascites. No mesenteric masses. LIVER: There are no focal hepatic lesions evident. No dilated intrahepatic ducts. GALLBLADDER/BILIARY: Gallbladder is again noted be surgically absent. CBD is not dilated. PANCREAS: No evidence of pancreatic mass nor dilatation of the pancreatic duct. SPLEEN: Spleen is not enlarged. No obvious intrasplenic lesions. Splenic and portal veins are patent. ADRENALS: There are no significant adrenal masses. KIDNEYS:No cysts evident. No solid renal masses. No calculi nor hydronephrosis.. ABDOMINAL AORTA: Abdominal aorta is not enlarged. Iliac arteries are calcified but not enlarged. LYMPH NODES:There is no retroperitoneal nor paraaortic adenopathy. ABDOMINAL WALL: No evidence of significant anterior abdominal wall nor inguinal hernia. GI: There is no evidence of bowel obstruction, free air, nor abscess. There there are few diverticuli in the left side of the colon at the splenic flexure and another off the posterior wall of the descending-left colon few cm below this level. There also a few scattered diverticuli evident in the sigmoid. There appears to be a single diverticulum off the medial wall of the ascending-right colon. There is mild streaking around 1 of the diverticuli which is on the posterior wall of the descending-left colon just beyond the splenic flexure, possibly indicating subtle diverticulitis at this level. There is no streaking around the diverticuli seen in the upper sigmoid. PELVIS: GI: No evidence of appendicitis. LYMPH NODES: There is no intrapelvic nor inguinal adenopathy. REPRODUCTIVE: Age-appropriate URINARY BLADDER: No calculi nor obvious masses evident OSSEOUS: No fractures and no significant osseous lesions. IMPRESSION: 1. There are scattered diverticuli in the left side of the colon and sigmoid. One of these which is in the proximal descending colon exhibits some mild Melina diverticular streaking which may indicate diverticulitis. Findings called by myself to ER physician 12/07/2024 at 11:50 a.m. RADIATION DOSE DELIVERED: 560.41mGy.cm Total DLP DATA REPOSITORY: All CT scans at this facility are submitted to the National Radiology Data Registry (NRDR) Dose Index Registry (DIR) with the [employer] (ACR). RADIATION OPTIMIZATION: All CT scans at this facility use at least one of these dose optimization techniques: automated exposure control; mA and/or kV adjustment per patient size (includes targeted exams where dose is matched to clinical indication); or iterative reconstruction.
--- NOTE | 2024-12-07 11:00 | RT.EKG_ITS ---
APPROVED REPORT Exam: Resting ECG Reason for Exam: dizzy Patient Location: E HR:77 bpm ECG Measurements Heart Rate 77 AXIS ID 142 P 75 QRSd 97 QRS 48 QT 375 T 70 QTc 426 Conclusion Sinus rhythm...normal P axis, V-rate 60- 99
[2024-12-07 11:06] LABS: Abs Immature Grans 0.03 10^3/uL (0.0-0.06); HCT 45.9 % (36.0-46.0); HGB 15.6 g/dL (11.2-15.7); Immature Grans % 0.3 %; MCH 31.1 pg (27.0-33.0); MCHC 34.0 % (32.0-36.0); MCV 92 fL (80-95); MPV 10.8 fL (8.0-11.0); Platelet Count 315 10^3/uL (130-400); RBC 5.01 10^6/uL (3.93-5.22); RDW 13.1 % (11.7-14.6); RDW-SD 43.8 fL; WBC 10.86 10^3/uL (4.4-10.8)
--- NOTE | 2024-12-07 11:08 | W.ED.GENAD ---
Discharge Plan Disposition Patient Disposition: Home Condition: Stable Discharge Details Clinical Impression: Acute diverticulitis Primary Care Provider: Iraida Kumar ED Provider: Jewel Ortiz Home Meds and New Rx's Prescriptions: New amoxicillin-pot clavulanate 875-125 mg tablet 1 tab PO BID Qty: 19 0RF nystatin 100,000 unit/mL suspension 5 ml PO QID 7 Days Qty: 140 0RF Rx Instructions: swish for several minutes and swallow Continued Spiriva Respimat 1.25 mcg/actuation mist 2 puff inhalation Q24H Qty: 12 3RF zolpidem 5 mg tablet 5 mg PO QHS PRN (Reason: insomnia) Qty: 30 5RF multivitamin Tablet 1 tab PO DAILY pantoprazole 40 mg tablet,delayed release (DR/EC) 40 mg PO Q2D duloxetine 20 mg capsule,delayed release(DR/EC) 20 mg PO DAILY 21 Days Qty: 14 0RF Rx Instructions: 20mg daily for 1 week, then every other day for 2 weeks and then stop. pregabalin 75 mg capsule 75 mg PO BID Qty: 60 1RF ondansetron 8 mg tablet,disintegrating 8 mg PO Q8H PRNQty: 30 0RF promethazine 12.5 mg suppository 12.5 mg IA Q6H PRN (Reason: nausea and vomiting) Qty: 12 0RF Rx Instructions: Thanks 1 suppository per rectum 6 hours as needed for nausea and vomiting metoclopramide HCl [Reglan] 5 mg tablet 5 mg PO QACHS PRN (Reason: nausea and vomiting) Qty: 10 0RF Rx Instructions: Please take 1 tablet by mouth on meals and at bedtime as needed for nausea or vomiting. No Action cholecalciferol (vitamin D3) 125 mcg (5,000 unit) capsule 125 mcg PO DAILY Discharge Instructions Instructions: Diverticulitis Additional Instructions: Please allow for bowel rest. Maintain a clear liquid diet today and tomorrow morning. You may advance your diet to bland soft foods like rice tomorrow afternoon. Advance slowly daily thereafter. Take full course of antibiotic as prescribed. Please follow-up with your primary care physician. Please follow-up with gastroenterology as scheduled. Return to the emergency department immediately for any worsening or new concerning symptoms. Referrals: Iraida Kumar MD [Primary Care Provider, Medicine] HPI General Mode of arrival: ambulatory. Date/Time Provider Initiated Documentation: 12/07/24 10:55. Limitations to Documentation: no limitations. Information obtained by: patient. HPI Narrative: HISTORY OF PRESENT ILLNESS 49-year-old female with a history of gastrointestinal issues presenting with hematochezia. Patient noticed red blood in stool on 12/02/2024 and 12/07/2024, accompanied by severe, constant upper abdominal pain starting 12/07/2024, primarily on the left side but extending across the abdomen. She felt lightheaded and slightly nauseous without vomiting. Contacted doctor on 12/03/2024, advised to visit ER after documenting blood in stool. History of gastrointestinal issues for 15 years, three hospitalizations this year for vomiting episodes lasting up to 5 days. Colonoscopy in 2021 or 06/2022, scheduled for another on 01/03/2025. Endoscopy earlier this year revealed stage 3 hiatal hernia. No antacids taken today. PAST SURGICAL HISTORY: Cholecystectomy Related Data Home Medications ?Medication ?Instructions ?Recorded ?Confirmed tiotropium bromide 1.25 2 puff inhalation Q24H #12 grams 05/30/24 12/07/24 mcg/actuation mist for inhalation (Spiriva Respimat) zolpidem 5 mg tablet 5 mg PO QHS PRN insomnia #30 tabs 05/30/24 12/07/24 ondansetron 8 mg disintegrating 8 mg PO Q8H PRN #30 tabs 07/03/24 12/07/24 tablet cholecalciferol (vitamin D3) 125 125 mcg PO DAILY 09/10/24 12/07/24 mcg (5,000 unit) capsule Held on 09/13/24. Instructions: Home Medication placed on hold at Doctor's office multivitamin 1 tab PO DAILY 09/10/24 12/07/24 metoclopramide HCl 5 mg tablet 5 mg PO QACHS PRN nausea and 10/24/24 12/07/24 (Reglan) vomiting #10 tabs promethazine 12.5 mg rectal 12.5 mg IA Q6H PRN nausea and 10/24/24 12/07/24 suppository vomiting #12 ea duloxetine 20 mg capsule,delayed 20 mg PO DAILY 3 weeks #14 caps 11/30/24 12/07/24 release pantoprazole 40 mg tablet,delayed 40 mg PO Q2D 11/30/24 12/07/24 release pregabalin 75 mg capsule 75 mg PO BID #60 caps 11/30/24 12/07/24 amoxicillin 875 mg-potassium 1 tab PO BID #19 tabs 12/07/24 clavulanate 125 mg tablet nystatin 100,000 unit/mL oral 5 ml PO QID 7 days #140 mL 12/07/24 suspension Previous Rx's ?Medication ?Instructions ?Recorded tiotropium bromide 1.25 2 puff inhalation Q24H #12 grams 05/30/24 mcg/actuation mist for inhalation (Spiriva Respimat) zolpidem 5 mg tablet 5 mg PO QHS PRN insomnia #30 tabs 05/30/24 ondansetron 8 mg disintegrating 8 mg PO Q8H PRN #30 tabs 07/03/24 tablet metoclopramide HCl 5 mg tablet 5 mg PO QACHS PRN nausea and 10/24/24 (Reglan) vomiting #10 tabs promethazine 12.5 mg rectal 12.5 mg IA Q6H PRN nausea and 10/24/24 suppository vomiting #12 ea duloxetine 20 mg capsule,delayed 20 mg PO DAILY 3 weeks #14 caps 11/30/24 release pregabalin 75 mg capsule 75 mg PO BID #60 caps 11/30/24 amoxicillin 875 mg-potassium 1 tab PO BID #19 tabs 12/07/24 clavulanate 125 mg tablet nystatin 100,000 unit/mL oral 5 ml PO QID 7 days #140 mL 12/07/24 suspension Allergies Allergy/AdvReac Type Severity Reaction Status Date / Time hydrocodone AdvReac Severe Restlessnes Verified 12/07/24 10:26 s nicotine AdvReac Severe Caused Verified 12/07/24 10:26 pain down extremity potassium chloride AdvReac Severe Swelling/Ed Unverified 12/07/24 10:26 rachelle ropinirole AdvReac Intermediate Insomnia, Verified 12/07/24 10:26 pounding heart amoxicillin AdvReac thrush Verified 12/07/24 10:26 bupropion (From Wellbutrin) AdvReac jitters Verified 12/07/24 10:26 gabapentin AdvReac sob Verified 12/07/24 10:26 tramadol AdvReac restlessnes Verified 12/07/24 10:26 s varenicline (From Chantix) AdvReac vomiting Verified 12/07/24 10:26 General Stated Complaint: Abd Prob ROSI: 3 Review of Systems All systems reviewed & are unremarkable except as noted in HPI and below Exam Const General: cooperative and no acute distress HENMT Mouth: moist mucous membranes Eyes Conjunctivae: normal conjunctivae Sclera: normal sclerae Neck Neck: trachea midline and supple Resp Auscultation: clear to auscultation bilaterally, no rales, no rhonchi and no wheezes Cardio Rate: regular rate and not tachycardic Rhythm: regular rhythm GI Palpation: soft, not firm, no guarding, no masses, not rigid and tender (Mild upper abdomen) Skin General skin exam: no rashes or lesions noted Neuro General: patient alert, patient awake, patient oriented x3 and tone normal Extrem General: no edema Course Vital Signs Vital signs: Vital Signs Temperature 36.9 C 12/07/24 10:23 Pulse 98 H 12/07/24 10:23 Respiratory Rate 16 12/07/24 10:23 Blood Pressure 136/105 H 12/07/24 10:23 Pulse Oximetry 94 12/07/24 10:23 Temperature 36.9 C 12/07/24 10:23 Temperature Source Oral 12/07/24 10:23 Pulse 98 H 12/07/24 10:23 Respiratory Rate 16 12/07/24 10:23 Blood Pressure 136/105 H 12/07/24 10:23 Blood Pressure Position Sitting 12/07/24 10:23 Pulse Oximetry 94 12/07/24 10:23 Oxygen Delivery Method Room Air 12/07/24 10:23 Oxygen Flow Rate 0 12/07/24 10:23 Pain Level 6 12/07/24 10:23 Lab/Test Results Lab/Test Results: Laboratory Tests Range/Units 12/07/24 10:43 WBC (4.4-10.8) 10^3/uL 10.86 H RBC (3.93-5.22) 10^6/uL 5.01 Hgb (11.2-15.7) g/dL 15.6 Hct (36.0-46.0) % 45.9 MCV (80-95) fL 92 MCH (27.0-33.0) pg 31.1 MCHC (32.0-36.0) % 34.0 RDW (11.7-14.6) % 13.1 Plt Count (130-400) 10^3/uL 315 MPV (8.0-11.0) fL 10.8 Immature Gran % % 0.3 Neutrophils % % 69.4 Lymphocytes % % 22.5 Monocytes % % 6.5 Eosinophils % % 0.7 Basophils % % 0.6 Nucleated RBC % (0.0-0.3) % 0.0 Absolute Neutrophils (1.2-6.7) 10^3/uL 7.54 H Absolute Lymphocytes (1.2-3.4) 10^3/uL 2.44 Absolute Monocytes (0.1-0.8) 10^3/uL 0.71 Absolute Eosinophils (0.0-0.7) 10^3/uL 0.08 Absolute Basophils (0.0-0.2) 10^3/uL 0.07 Medical Decision Making ASSESSMENT AND PLAN Initial Assessment: 49-year-old female with hematochezia and upper abdominal pain. Differential Diagnosis: - Diverticulitis: CT shows scattered diverticuli, mild peridiverticular streaking. Treat with Augmentin. - Upper GI source: Considered due to GI bleeding. Administered Protonix IV. ED Course: - Labs drawn - CT reviewed by radiology, discussed with Dr. Sheriff - Administered Protonix IV and Zofran - EKG performed, reviewed: sinus rhythm 77 bpm, nondiagnostic - Initiated Augmentin treatment Final Assessment: Observed in ED for 2-1/2 hours, remained stable. CT indicates diverticulitis. Labs show mild leukocytosis, normal hemoglobin, electrolytes, unremarkable LFTs. EKG nondiagnostic. Clinical Impression: - Acute diverticulitis - Gastrointestinal bleeding Disposition: - Discharge: Home, stable - Follow-Up: Primary care physician, gastroenterology appointment as scheduled Patient Education: Usual discharge instructions reviewed. This document was written with the assistance of [email or web address]. The patient consented to its use. Lab Data Lab results reviewed: Yes I reviewed the patient's lab results. Labs: Laboratory Tests Range/Units 12/07/24 10:43 WBC (4.4-10.8) 10^3/uL 10.86 H RBC (3.93-5.22) 10^6/uL 5.01 Hgb (11.2-15.7) g/dL 15.6 Hct (36.0-46.0) % 45.9 MCV (80-95) fL 92 MCH (27.0-33.0) pg 31.1 MCHC (32.0-36.0) % 34.0 RDW (11.7-14.6) % 13.1 Plt Count (130-400) 10^3/uL 315 MPV (8.0-11.0) fL 10.8 Immature Gran % % 0.3 Neutrophils % % 69.4 Lymphocytes % % 22.5 Monocytes % % 6.5 Eosinophils % % 0.7 Basophils % % 0.6 Nucleated RBC % (0.0-0.3) % 0.0 Absolute Neutrophils (1.2-6.7) 10^3/uL 7.54 H Absolute Lymphocytes (1.2-3.4) 10^3/uL 2.44 Absolute Monocytes (0.1-0.8) 10^3/uL 0.71 Absolute Eosinophils (0.0-0.7) 10^3/uL 0.08 Absolute Basophils (0.0-0.2) 10^3/uL 0.07 Sodium (136-145) mmol/L 141 Potassium (3.5-5.1) mmol/L 4.1 Chloride (98-107) mmol/L 102 Carbon Dioxide (21.0-32.0) mmol/L 31.6 Anion Gap (3-11) mmol/L 7.4 BUN (7-18) mg/dL 8 Creatinine (0.55-1.02) mg/dL 0.6 Est GFR (CKD-EPI 2020) (mL/min/1.73m2) 109.28 Glucose (74-106) mg/dL 99 Calcium (8.5-10.1) mg/dL 9.4 Total Bilirubin (0.2-1.0) mg/dL 0.3 AST (15-37) U/L 19 ALT (14-59) U/L 30 Alkaline Phosphatase (46-116) U/L 133 H Total Protein (6.4-8.2) g/dL 8.0 Albumin (3.4-5.0) g/dL 3.9 Lipase (<78) U/L 45 ABO/Rh A Positive Antibody Screen NEGATIVE PFSH All Active Problems Acute diverticulitis (Acute) Low vitamin D level (Acute) Vomiting (bilious) following gastrointestinal surgery (Acute) Hiatal hernia (Chronic 09/01/16) stage 3 paraesophageal hernia on EGD 07/2024 Nocturnal myoclonus (Chronic) no improvement with Ropinirole. Leukocytosis (Chronic) chronic, prior eval with hematology at [facility] Sacroiliac joint dysfunction of right side (Chronic) Chronic pain (Chronic) Improved with duloxetine Smoker (Chronic) started age 16; 1 ppd Migraine (Chronic 07/06/11) 2 headaches / month; triggers are noxious smells Insomnia disorder (Chronic 05/01/15) Hyperlipidemia (Chronic) Gastroesophageal reflux disease (Chronic) per EGD-01/16; esophagitis on EGD 12/2022; esophagitis on EGD 07/2024 Diarrhea (Chronic) chronic diarrhea Chronic obstructive lung disease (Chronic) Anxiety (Chronic) Working with Aubrey Gabriel Medical History DUB (dysfunctional uterine bleeding) Uterine fibroid Diverticulosis (09/01/16) with history of diverticulitis Allergic eosinophilia INTRAEPITHELIAL EOSINOPHILS, 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 ADAMS PER EGD 09/01/16 DR. LOWRY-SEVERE GASTRITIS WITH AN ULCER Abnormal auditory perception of both ears (04/04/17) Abdominal pain (08/12/14) extensive workup at [facility] [place] 2010- no specific cause Surgical History History of esophagogastroduodenoscopy (~07/2024) History of bilateral salpingo-oophorectomy Status post cholecystectomy Family History Mother , 69 Essential hypertension Heart disease Hyperlipidemia Myocardial infarction AFTER SURGERY AND BLEEDING W/ BLOOD CLOT TO THE HEART. Father Alcohol abuse Personal history of malignant neoplasm THROAT/LIVER/LUNG Brother Alcohol abuse Personal history of malignant neoplasm LIVER Grandfather Personal history of malignant neoplasm Heart disease Grandmother Essential hypertension Stroke Grandmother Personal history of malignant neoplasm Social History Smoking/Tobacco Use Status: Current every day Tobacco Type: cigarettes Smoking packs per day: 1 Smoking cigarettes per day: 20.0 Years smoked: 24 Smoking pack-years: 24.00 Tobacco: How many years used: 26 Quit status: considering quitting Second Hand Exposure: Yes Counseling given: provider counseling Smoking risk assessment performed?: Yes Alcohol Intake: never Drug use: Never Substance use type: does not use Details: 07/17/24- pt reports she smoked 2 cigarettes 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 Housing: house Number of Children: 2 Communication Needs: None Do you need help understanding health information?: Never current occupation: unable to work due to stomach problems Pets and animals: Yes Pets and animals: cat(s), dog(s) and farm animals Sexually active: Yes Do you think of yourself as: straight/heterosexual Current gender identity: decline to answer What is your relationship status?: How often do you talk on the phone with friends or family?: never How often do you get together with friends or relatives?: decline to answer How often do you attend adventism or baptist services?: decline to answer Do you belong to any clubs or organized social groups?: no Panel score (0-1 are the most socially isolated patients): 1 What type of physical activity do you participate in: walking Duration: 15-30 minutes/day Frequency: 3-4 times per week Renetta/Congregational: None Seatbelt use: always Helmet use: Yes Drive 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
[2024-12-07] MEDS: Omnipaque 350 MG/ML 100 ML BTL IJ (11:19)
[2024-12-07] MEDS: Normal Saline - Diluent 50 ML VIAL IJ (11:20)
[2024-12-07 11:25] LABS: ALT 30 U/L (14-59); AST 19 U/L (15-37); Albumin 3.9 g/dL (3.4-5.0); Alkaline Phosphatase 133 U/L (46-116); Anion Gap 7.4 mmol/L (3-11); BUN 8 mg/dL (7-18); Bilirubin, Total 0.3 mg/dL (0.2-1.0); CO2 31.6 mmol/L (21.0-32.0); Calcium 9.4 mg/dL (8.5-10.1); Chloride 102 mmol/L (98-107); Estimated GFR 109.28 (mL/min/1.73m2); Glucose 99 mg/dL (74-106); Lipase 45 U/L (<78); Potassium 4.1 mmol/L (3.5-5.1); Sodium 141 mmol/L (136-145); Total Protein 8.0 g/dL (6.4-8.2)
[2024-12-07] MEDS: Pantoprazole 40 MG VIAL IVP (11:37)
[2024-12-07] MEDS: Ondansetron 4 MG/2 ML VIAL IVP (11:37)
[2024-12-07 11:40] VITALS: BP 130/90; PULSE 78; RESP 18; O2SAT 97
[2024-12-07 12:59] VITALS: BP 136/90; PULSE 72; RESP 20; TEMP 36.9; O2SAT 97
[2024-12-07] MEDS: Amoxicillin 875/Clav. 125 TAB PO (13:03)
== END 2024-12-07 13:12 | disposition home or self-care (01) ==
PROVIDERS: Emergency Provider Student in an Organized Health Care Education/Training Program; PCP Family Medicine
DX: K57.32 Diverticulitis of large intestine without perforation or abscess without bleeding (principal); F17.210 Nicotine dependence, cigarettes, uncomplicated
CPT/HCPCS: 36415; 80053; 83690; 86850; 86900; 86901; 93005; 96374; 96375; 99285; 74177; 85025; 93010; J2405; J2470; J3490

== ENCOUNTER 2024-12-17 14:47 | Emergency (ER) | payer SELFPAY ==
[2024-12-17] VITALS (33 sets, daily range): BP systolic 120–158; BP diastolic 80–93; PULSE 75–115; RESP 9–30; TEMP 36.5–36.8; O2SAT 95–100
--- NOTE | 2024-12-17 16:30 | RT.EKG_ITS ---
APPROVED REPORT Exam: Resting ECG Reason for Exam: weakness Patient Location: E HR:78 bpm ECG Measurements Heart Rate 78 AXIS MS 120 P 63 QRSd 100 QRS 101 QT 416 T 69 QTc 473 Conclusion Sinus rhythm...normal P axis, V-rate 60- 99
--- NOTE | 2024-12-17 16:45 | DI.CT_ITS ---
Exam(s) CT ABDOMEN PELVIS W EXAM: CT ABDOMEN PELVIS W CLINICAL HISTORY: recent diverticulitis, now with vomiting incr pain TECHNIQUE: Imaging Protocol: Axial computed tomography images with coronal and sagittal reformatted images were created and reviewed. CONTRAST MATERIAL: Intravenous: Omnipaque 350 Contrast volume:75 mL Oral: No COMPARISON: CT CT ABDOMEN PELVIS W from 10/24/[address] ABDOMEN PELVIS W from 12/07/2024 FINDINGS: ABDOMEN: Lung Bases: There is a small hiatal hernia. Liver: There is decreased attenuation of the liver consistent with fatty infiltration. No measurable mass. Portal, Superior Mesenteric, and Splenic Veins: Unremarkable. Gallbladder and Biliary Tract: Status post cholecystectomy. No significant biliary ductal dilatation is present. Pancreas: Normal density, no abnormal calcifications or inflammatory process. Spleen: Normal. Adrenals: No masses seen. Kidneys: Normal size, contour and axis. No radiodense stones or obstructive uropathy. No masses seen. Abdominal Aorta: Abdominal portion non-dilated. Atherosclerotic calcification is present. Bowel: There is diverticulosis of the colon without evidence of acute diverticulitis. There is no bowel wall thickening or obstruction present. There is no pneumatosis. There is no evidence of appendicitis. Peritoneal Cavity: No ascites, collection or mesenteric inflammatory response. No free air. Lymph Nodes: Within normal limits. Bones: Within normal limits for the patient's age. Soft Tissues: Unremarkable. PELVIS: Bladder: Symmetric distention, no gross wall thickening. Reproductive Organs: Unremarkable as visualized. Lymph Nodes: Within normal limits. Bones: Within normal limits for the patient's age. IMPRESSION: 1. No acute abdominal or pelvic process. 2. Colonic diverticulosis without evidence of acute diverticulitis at this time. If symptoms persist, a repeat examination may be obtained. RADIATION DOSE DELIVERED: 444.8mGy.cm Total DLP DATA REPOSITORY: All CT scans at this facility are submitted to the National Radiology Data Registry (NRDR) Dose Index Registry (DIR) with the [employer] (A[employer]). RADIATION OPTIMIZATION: All CT scans at this facility use at least one of these dose optimization techniques: automated exposure control; mA and/or kV adjustment per patient size (includes targeted exams where dose is matched to clinical indication); or iterative reconstruction.
[2024-12-17] MEDS: Normal Saline 1,000 ML 1000 ML IV ×2 (17:20→19:24)
[2024-12-17] MEDS: Prochlorperazine 10 MG/2 ML VIAL IVP (17:21)
[2024-12-17 17:23] LABS: Abs Immature Grans 0.09 10^3/uL (0.0-0.06); HCT 43.8 % (36.0-46.0); HGB 15.2 g/dL (11.2-15.7); Immature Grans % 0.4 %; MCH 30.9 pg (27.0-33.0); MCHC 34.7 % (32.0-36.0); MCV 89 fL (80-95); MPV 10.9 fL (8.0-11.0); Platelet Count 338 10^3/uL (130-400); RBC 4.92 10^6/uL (3.93-5.22); RDW 12.6 % (11.7-14.6); RDW-SD 41.5 fL; WBC 20.69 10^3/uL (4.4-10.8)
[2024-12-17 17:45] LABS: ALT 39 U/L (14-59); AST 25 U/L (15-37); Albumin 4.0 g/dL (3.4-5.0); Alkaline Phosphatase 133 U/L (46-116); Anion Gap 16.5 mmol/L (3-11); BUN 11 mg/dL (7-18); Bilirubin, Total 0.8 mg/dL (0.2-1.0); CO2 21.5 mmol/L (21.0-32.0); Calcium 9.5 mg/dL (8.5-10.1); Chloride 100 mmol/L (98-107); Estimated GFR 105.30 (mL/min/1.73m2); Glucose 188 mg/dL (74-106); Lipase 25 U/L (<78); Potassium 3.5 mmol/L (3.5-5.1); Sodium 138 mmol/L (136-145); Total Protein 8.0 g/dL (6.4-8.2)
[2024-12-17] MEDS: Normal Saline - Diluent 50 ML VIAL IJ (17:46)
[2024-12-17] MEDS: Omnipaque 350 MG/ML 100 ML BTL IJ (17:47)
--- NOTE | 2024-12-17 17:52 | DI.RAD_ITS ---
Exam(s) XR CHEST 2V PA LATERAL EXAM: XR CHEST 2V PA LATERAL CLINICAL HISTORY: luq pain TECHNIQUE: 2D digital imaging was performed of the chest. Two images were obtained. PA and lateral views were obtained. COMPARISON: CR XR CHEST 2V PA LATERAL from 02/18/2022 FINDINGS: MEDIASTINUM: Normal. HEART: Normal. PULMONARY VASCULATURE: Normal. LUNGS: Clear. PLEURAL SPACE: No pleural effusion or pneumothorax. BONE:Within normal limits for the patient's age. OTHER FINDINGS:Normal. IMPRESSION: No acute pulmonary findings. DATA REPOSITORY: RADIATION DOSE DELIVERED:
[2024-12-17 19:23] LABS: Magnesium 1.8 mg/dL (1.8-2.4)
[2024-12-17] MEDS: diphenhydrAMINE 50 MG/ML VIAL 25 MG IVP (19:23)
[2024-12-17 19:24] LABS: Glucose Negative (Negative)
[2024-12-17 19:30] LABS: C & S Indicated? No; RBC 0-2 HPF (0-2); WBC Negative HPF (0-5)
[2024-12-17 19:32] LABS: Lab Add On Test DONE
--- NOTE | 2024-12-17 21:16 | W.ED.GENAD ---
Discharge Plan Disposition Patient Disposition: Home Condition: Stable Discharge Details Clinical Impression: Nausea vomiting and diarrhea, Elevated WBC count Primary Care Provider: Iraida Kumar ED Provider: Lorie Mesa Home Meds and New Rx's Prescriptions: New promethazine 25 mg tablet 25 mg PO TID PRNQty: 10 0RF promethazine 25 mg suppository 25 mg CO Q6H PRNQty: 12 0RF Continued Spiriva Respimat 1.25 mcg/actuation mist 2 puff inhalation Q24H Qty: 12 3RF zolpidem 5 mg tablet 5 mg PO QHS PRN (Reason: insomnia) Qty: 30 5RF multivitamin Tablet 1 tab PO DAILY cholecalciferol (vitamin D3) 125 mcg (5,000 unit) capsule 125 mcg PO DAILY pantoprazole 40 mg tablet,delayed release (DR/EC) 40 mg PO Q2D duloxetine 20 mg capsule,delayed release(DR/EC) 20 mg PO DAILY 21 Days Qty: 14 0RF Rx Instructions: 20mg daily for 1 week, then every other day for 2 weeks and then stop. pregabalin 75 mg capsule 75 mg PO BID Qty: 60 1RF ondansetron 8 mg tablet,disintegrating 8 mg PO Q8H PRNQty: 30 0RF promethazine 12.5 mg suppository 12.5 mg CO Q6H PRN (Reason: nausea and vomiting) Qty: 12 0RF Rx Instructions: Thanks 1 suppository per rectum 6 hours as needed for nausea and vomiting metoclopramide HCl [Reglan] 5 mg tablet 5 mg PO QACHS PRN (Reason: nausea and vomiting) Qty: 10 0RF Rx Instructions: Please take 1 tablet by mouth on meals and at bedtime as needed for nausea or vomiting. Discharge Instructions Instructions: Nausea and Vomiting, Adult ED, Leukocytosis (ED) Additional Instructions: Take the Phenergan as needed for nausea and vomiting have written you for suppositories and oral medication, do not use both the suppository and oral medications simultaneously or at the same time Clear liquid diet until you are able to tolerate p.o. recommend estrella clark, Gatorade popsicles broth Please follow-up with primary care physician in 1 to 2 days for assessment and to have your white blood cell count checked as it is elevated today Please return earlier should you have new or worsening complaints Referrals: Iraida Kumar MD [Primary Care Provider, Medicine] HPI General Date/Time Provider Initiated Documentation: 12/17/24 15:35. HPI Narrative: 49-year-old female with nausea, vomiting, and diarrhea since 0800 hours. Episode of blood in stool on Tuesday, none today. No sick contacts. History of similar episodes. Recent diverticulitis diagnosis on 12/07/2024, completed Augmentin. PMH: allergic eosinophilia, acute gastritis, bleeding. Received Benadryl and Compazine for vomiting. Leukocytosis and shift noted, similar to past episodes. Related Data Home Medications ?Medication ?Instructions ?Recorded ?Confirmed tiotropium bromide 1.25 2 puff inhalation Q24H #12 grams 05/30/24 12/17/24 mcg/actuation mist for inhalation (Spiriva Respimat) zolpidem 5 mg tablet 5 mg PO QHS PRN insomnia #30 tabs 05/30/24 12/17/24 ondansetron 8 mg disintegrating 8 mg PO Q8H PRN #30 tabs 07/03/24 12/17/24 tablet cholecalciferol (vitamin D3) 125 125 mcg PO DAILY 09/10/24 12/17/24 mcg (5,000 unit) capsule multivitamin 1 tab PO DAILY 09/10/24 12/17/24 metoclopramide HCl 5 mg tablet 5 mg PO QACHS PRN nausea and 10/24/24 12/17/24 (Reglan) vomiting #10 tabs promethazine 12.5 mg rectal 12.5 mg CO Q6H PRN nausea and 10/24/24 12/17/24 suppository vomiting #12 ea duloxetine 20 mg capsule,delayed 20 mg PO DAILY 3 weeks #14 caps 11/30/24 12/17/24 release pantoprazole 40 mg tablet,delayed 40 mg PO Q2D 11/30/24 12/17/24 release pregabalin 75 mg capsule 75 mg PO BID #60 caps 11/30/24 12/17/24 promethazine 25 mg rectal 25 mg CO Q6H PRN #12 ea 12/17/24 suppository promethazine 25 mg tablet 25 mg PO TID PRN #10 tabs 12/17/24 Previous Rx's ?Medication ?Instructions ?Recorded tiotropium bromide 1.25 2 puff inhalation Q24H #12 grams 05/30/24 mcg/actuation mist for inhalation (Spiriva Respimat) zolpidem 5 mg tablet 5 mg PO QHS PRN insomnia #30 tabs 05/30/24 ondansetron 8 mg disintegrating 8 mg PO Q8H PRN #30 tabs 07/03/24 tablet metoclopramide HCl 5 mg tablet 5 mg PO QACHS PRN nausea and 10/24/24 (Reglan) vomiting #10 tabs promethazine 12.5 mg rectal 12.5 mg CO Q6H PRN nausea and 10/24/24 suppository vomiting #12 ea duloxetine 20 mg capsule,delayed 20 mg PO DAILY 3 weeks #14 caps 11/30/24 release pregabalin 75 mg capsule 75 mg PO BID #60 caps 11/30/24 promethazine 25 mg rectal 25 mg CO Q6H PRN #12 ea 12/17/24 suppository promethazine 25 mg tablet 25 mg PO TID PRN #10 tabs 12/17/24 Allergies Allergy/AdvReac Type Severity Reaction Status Date / Time hydrocodone AdvReac Severe Restlessnes Verified 12/17/24 15:13 s nicotine AdvReac Severe Caused Verified 12/17/24 15:13 pain down extremity potassium chloride AdvReac Severe Swelling/Ed Unverified 12/17/24 15:13 rachelle ropinirole AdvReac Intermediate Insomnia, Verified 12/17/24 15:13 pounding heart amoxicillin AdvReac thrush Verified 12/17/24 15:13 bupropion (From Wellbutrin) AdvReac jitters Verified 12/17/24 15:13 gabapentin AdvReac sob Verified 12/17/24 15:13 tramadol AdvReac restlessnes Verified 12/17/24 15:13 s varenicline (From Chantix) AdvReac vomiting Verified 12/17/24 15:13 General Stated Complaint: Nausea/Vomit/Diar ROSI: 3 Exam Narrative Exam Narrative: Alert and oriented no acute distress mild tenderness to abdomen, no rebound or guarding moist mucous membranes no CVA tenderness cardiac rate rhythm regular Course Vital Signs Vital signs: Vital Signs Temperature 36.5 C 12/17/24 15:08 Pulse 82 12/17/24 15:08 Respiratory Rate 20 12/17/24 15:08 Blood Pressure 147/87 H 12/17/24 15:08 Pulse Oximetry 98 12/17/24 15:08 Temperature 36.7 C 12/17/24 16:31 Temperature Source Tympanic 12/17/24 16:31 Pulse 81 12/17/24 18:40 Pulse 79 12/17/24 20:00 Respiratory Rate 26 H 12/17/24 20:00 Blood Pressure 158/93 H 12/17/24 16:31 Blood Pressure Mean 114 12/17/24 16:31 Blood Pressure Position Sitting 12/17/24 15:08 Pulse Oximetry 98 12/17/24 18:40 Oxygen Delivery Method Room Air 12/17/24 16:31 Oxygen Flow Rate 0 12/17/24 16:31 Pain Level 8 12/17/24 15:08 Lab/Test Results Lab/Test Results: 12/17/24 19:00 Blood Blood Culture - Pending 12/17/24 18:20 Blood Blood Culture - Pending Laboratory Tests Range/Units 12/17/24 12/17/24 12/17/24 17:14 19:20 20:17 WBC (4.4-10.8) 10^3/uL 20.69 H RBC (3.93-5.22) 10^6/uL 4.92 Hgb (11.2-15.7) g/dL 15.2 Hct (36.0-46.0) % 43.8 MCV (80-95) fL 89 MCH (27.0-33.0) pg 30.9 MCHC (32.0-36.0) % 34.7 RDW (11.7-14.6) % 12.6 Plt Count (130-400) 10^3/uL 338 MPV (8.0-11.0) fL 10.9 Immature Gran % % 0.4 Neutrophils % % 88.6 Lymphocytes % % 7.6 Monocytes % % 3.2 Eosinophils % % 0.0 Basophils % % 0.2 Nucleated RBC % (0.0-0.3) % 0.0 Absolute Neutrophils (1.2-6.7) 10^3/uL 18.33 H Absolute Lymphocytes (1.2-3.4) 10^3/uL 1.57 Absolute Monocytes (0.1-0.8) 10^3/uL 0.66 Absolute Eosinophils (0.0-0.7) 10^3/uL 0.00 Absolute Basophils (0.0-0.2) 10^3/uL 0.04 VBG Lactate (<or=2.0) mmol/L 2.6 H* Sodium (136-145) mmol/L 138 Potassium (3.5-5.1) mmol/L 3.5 Chloride (98-107) mmol/L 100 Carbon Dioxide (21.0-32.0) mmol/L 21.5 Anion Gap (3-11) mmol/L 16.5 H BUN (7-18) mg/dL 11 Creatinine (0.55-1.02) mg/dL 0.7 Est GFR (CKD-EPI 2020) (mL/min/1.73m2) 105.30 Glucose (74-106) mg/dL 188 H Calcium (8.5-10.1) mg/dL 9.5 Magnesium (1.8-2.4) mg/dL 1.8 Total Bilirubin (0.2-1.0) mg/dL 0.8 AST (15-37) U/L 25 ALT (14-59) U/L 39 Alkaline Phosphatase (46-116) U/L 133 H Total Protein (6.4-8.2) g/dL 8.0 Albumin (3.4-5.0) g/dL 4.0 Lipase (<78) U/L 25 Urine Color (Yellow) Yellow Urine Clarity (Clear) Clear Urine pH (5-8) 7.5 Ur Specific [place] (1.005-1.025) 1.010 Urine Protein (Neg-Trace) mg/dL Negative Urine Ketones (Negative) mg/dL 80 H Urine Blood (Negative) Trace-intact H Urine Nitrite (Negative) Negative Urine Bilirubin (Negative) Negative Urine Urobilinogen (Up to 0.2) mg/dL 0.2 Ur Leukocyte Esterase (Negative) Negative Urine RBC (0-2) HPF 0-2 Urine WBC (0-5) HPF Negative Ur Epithelial Cells (Negative) HPF Few Urine Crystals (Negative) HPF Negative Urine Bacteria (Negative) HPF Rare Urine Casts (Negative) LPF Negative Urine Mucus (Negative) Negative Ur Culture Indicated? No Urine Glucose (Negative) mg/dL Negative Add-On Test Request DONE Medical Decision Making - Laboratory Studies: - CMP: Gap of 16, likely dehydration - Ketones: 80 - Ketones in urine - Magnesium: normal - Lactate: initially 2.5 - Imaging: - CT abdomen/pelvis: No abscess Initial Assessment: 49-year-old female with nausea, vomiting, and diarrhea since 0800 hours. Recent diverticulitis diagnosis on 12/07/2024. Episode of blood in stool on Tuesday, none today. History of similar episodes. Differential Diagnosis: - Dehydration: CMP gap of 16, ketones in urine. Plan: Administered 2 L NS, recheck lactate. - Diverticulitis: Recent diagnosis, no abscess on CT. Plan: Outpatient follow-up with PCP. - Acute gastritis: PMH, persistent vomiting. Plan: Administered Benadryl and Compazine. ED Course: - CT abdomen/pelvis: No abscess. - CMP: Gap of 16, likely dehydration. - Ketones in urine: 80. - Administered 2 L NS. - Provided estrella clark and popsicle: Tolerated well. - Magnesium: Normal. - Lactate: Initially 2.5, to be rechecked. - Repeat lactate Black 2 able to tolerate p.o. discharged home with Phenergan Recheck with PCP tomorrow blood cell count rechecked in the outpatient setting within the next week Final Assessment: Patient presented with nausea, vomiting, and diarrhea. CT abdomen/pelvis: No abscess. CMP: Dehydration. Administered 2 L NS, tolerated oral intake well. Close outpatient follow-up required. Clinical Impression: - Dehydration - Diverticulitis - Acute gastritis Disposition: - Discharge home: Close outpatient follow-up with PCP tomorrow. Return precautions reviewed and understood. Follow-Up: - Outpatient follow-up with PCP tomorrow. Patient Education: - Return precautions reviewed and understood. PFSH All Active Problems (Updated 12/17/24 @ 21:53 by BRANT Hardin) Elevated WBC count (Acute) Nausea vomiting and diarrhea (Acute) Acute diverticulitis (Acute) Low vitamin D level (Acute) Vomiting (bilious) following gastrointestinal surgery (Acute) Hiatal hernia (Chronic 09/01/16) stage 3 paraesophageal hernia on EGD 07/2024 Nocturnal myoclonus (Chronic) no improvement with Ropinirole. Leukocytosis (Chronic) chronic, prior eval with hematology at [facility] Sacroiliac joint dysfunction of right side (Chronic) Chronic pain (Chronic) Improved with duloxetine Smoker (Chronic) started age 16; 1 ppd Migraine (Chronic 07/06/11) 2 headaches / month; triggers are noxious smells Insomnia disorder (Chronic 05/01/15) Hyperlipidemia (Chronic) Gastroesophageal reflux disease (Chronic) per EGD-01/16; esophagitis on EGD 12/2022; esophagitis on EGD 07/2024 Diarrhea (Chronic) chronic diarrhea Chronic obstructive lung disease (Chronic) Anxiety (Chronic) Working with Aubrey Gabriel Medical History DUB (dysfunctional uterine bleeding) Uterine fibroid Diverticulosis (09/01/16) with history of diverticulitis Allergic eosinophilia INTRAEPITHELIAL EOSINOPHILS, 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 ADAMS PER EGD 09/01/16 DR. LOWRY-SEVERE GASTRITIS WITH AN ULCER Abnormal auditory perception of both ears (04/04/17) Abdominal pain (08/12/14) extensive workup at [facility] [place] 2010- no specific cause Surgical History History of esophagogastroduodenoscopy (~07/2024) History of bilateral salpingo-oophorectomy Status post cholecystectomy Family History Mother , 69 Essential hypertension Heart disease Hyperlipidemia Myocardial infarction AFTER SURGERY AND BLEEDING W/ BLOOD CLOT TO THE HEART. Father Alcohol abuse Personal history of malignant neoplasm THROAT/LIVER/LUNG Brother Alcohol abuse Personal history of malignant neoplasm LIVER Grandfather Personal history of malignant neoplasm Heart disease Grandmother Essential hypertension Stroke Grandmother Personal history of malignant neoplasm Social History Smoking/Tobacco Use Status: Current every day Tobacco Type: cigarettes Smoking packs per day: 1 Smoking cigarettes per day: 20.0 Years smoked: 24 Smoking pack-years: 24.00 Tobacco: How many years used: 26 Quit status: considering quitting Second Hand Exposure: Yes Counseling given: provider counseling Smoking risk assessment performed?: Yes Alcohol Intake: never Drug use: Never Substance use type: does not use Caregiver/Support person: No Household members: spouse, children and other Details: [facility] Housing: house Number of Children: 2 Communication Needs: None Do you need help understanding health information?: Never current occupation: unable to work due to stomach problems Pets and animals: Yes Pets and animals: cat(s), dog(s) and farm animals Sexually active: Yes Do you think of yourself as: straight/heterosexual Current gender identity: decline to answer What is your relationship status?: How often do you talk on the phone with friends or family?: never How often do you get together with friends or relatives?: decline to answer How often do you attend adventist or jehovah's witness services?: decline to answer Do you belong to any clubs or organized social groups?: no Panel score (0-1 are the most socially isolated patients): 1 What type of physical activity do you participate in: walking Duration: 15-30 minutes/day Frequency: 3-4 times per week [place]/Church: None Seatbelt use: always Helmet use: Yes Drive intox or ride w/intox water tanker driver: No Do you feel safe at home: Yes Do you feel safe in your relationship?: Yes
== END 2024-12-17 22:10 | disposition home or self-care (01) ==
PROVIDERS: Emergency Provider Physician Assistant; PCP Family Medicine
DX: R11.2 Nausea with vomiting, unspecified (principal); R19.7 Diarrhea, unspecified; D72.829 Elevated white blood cell count, unspecified
CPT/HCPCS: 36415; 80053; 83690; 87040; 93005; 96361; 96374; 96375; 99284; 71046; 74177; 81003; 81015; 83605; 83735; 85025; 93010; J0780; J1200; J3490